=== PATIENT | female | born 1940 | race Caucasian/White ===

== ENCOUNTER 2016-12-18 13:52 | Inpatient (IN) | payer MEDICARE, BC ==
[2016-12-18] MEDS ORDERED: Albuterol-Ipratrop 3 mg / 0.5 (3 ml) UD IH STA (14:09)
[2016-12-18] MEDS ORDERED: Albuterol-Ipratrop 3 mg / 0.5 (3 ml) UD ONE (14:12)
--- NOTE | 2016-12-18 14:23 | ED PDOC ---
HPI: SOB/CHF/COPD Time Seen by Provider: 12/18/16 13:59 Chief Complaint (Nursing): Shortness Of Breath Chief Complaint (Provider): SOB, cough History Per: Patient History/Exam Limitations: no limitations Onset/Duration Of Symptoms: Days (1) Current Symptoms Are (Timing): Still Present Additional Complaint(s): The pt is a 76yo female, PMHx of HTN, presents to the ED for evaluation of shortness of breath associated with cough and productive white sputum for the past day. Pt additionally reports noticing some mild feet swelling; she denies any fever, chills or chest pain. Pt currently offers no additional medical complaints. Past Medical History Reviewed: Historical Data, Nursing Documentation, Vital Signs Vital Signs: Last Vital Signs Temp 98.4 F 12/18/16 13:56 Pulse 92 H 12/18/16 13:56 Resp 18 12/18/16 13:56 BP Pulse Ox 93 L 12/18/16 14:24 - Medical History PMH: HTN - Family History Family History: States: Unknown Family Hx - Allergies Allergies/Adverse Reactions: Allergies Allergy/AdvReac Type Severity Reaction Status Date / Time No Known Allergies Allergy Verified 12/18/16 13:56 Review of Systems ROS Statement: Except As Marked, All Systems Reviewed And Found Negative Constitutional: Negative for: Fever, Chills Cardiovascular: Negative for: Chest Pain Respiratory: Positive for: Cough, Shortness of Breath, Sputum (white) Musculoskeletal: Positive for: Other (feet swelling) Physical Exam - Reviewed Nursing Documentation Reviewed: Yes Vital Signs Reviewed: Yes - Physical Exam Appears: Positive for: Well, Non-toxic, No Acute Distress Head Exam: Positive for: ATRAUMATIC, NORMAL INSPECTION, NORMOCEPHALIC Skin: Positive for: Normal Color, Warm Eye Exam: Positive for: Normal appearance Neck: Positive for: Normal, Supple Cardiovascular/Chest: Positive for: Irregularly Irregular Respiratory: Positive for: Decreased Breath Sounds (mild decreased breath sounds ). Negative for: Wheezing, Respiratory Distress Gastrointestinal/Abdominal: Positive for: Normal Exam, Soft. Negative for: Tenderness Extremity: Positive for: Normal ROM, Swelling (no swelling or edema appreciated) - ECG O2 Sat by Pulse Oximetry: 93 Medical Decision Making Medical Decision Making: Time: 1405 Impression: shortness of breath and cough Plan: * EKG * Duoneb * CXR Scribe Attestation: Documented by Nubia Juany acting as a scribe for Yoni Arevalo MD. Provider Attestation: All medical record entries made by the Scribe were at my direction and personally dictated by me. I have reviewed the chart and agree that the record accurately reflects my personal performance of the history, physical exam, medical decision making, and the department course for this patient. I have also personally directed, reviewed, and agree with the discharge instructions and disposition. Disposition - Clinical Impression Clinical Impression: Atrial fibrillation with RVR - Patient ED Disposition Is Patient to be Admitted: Yes - Disposition Disposition Time: 14:57 Condition: FAIR - Pt Status Changed To: Hospital Disposition Of: Observation - POA Present On Arrival: None
[2016-12-18] MEDS ORDERED: Digoxin 500 mcg/2ml (0.5 mg/2ml) Inj ONE (15:06)
[2016-12-18] MEDS ORDERED: Digoxin 500 mcg/2ml (0.5 mg/2ml) Inj IVP STA (15:08)
[2016-12-18 15:11] LABS: BASO % 0.4 % (0.0-2.0); EOS % 0.1 % (0.0-4.0); HEMATOCRIT 37.3 % (34.0-47.0); LYMPH # 0.4 K/uL (1.0-4.3); LYMPH % 5.3 % (20.0-40.0); MEAN CELL VOLUME 85.8 fl (81.0-99.0); MEAN CORPUSCULAR HEMOGLOBIN 28.1 pg (27.0-31.0); MEAN CORPUSCULAR HGB CONC 32.8 g/dL (33.0-37.0); MEAN PLATELET VOLUME 8.4 fl (7.2-11.7); MONO # 0.5 K/uL (0.0-0.8); MONO % 6.8 % (0.0-10.0); NEUT # 6.8 K/uL (1.8-7.0); NEUT % 87.4 % (50.0-75.0); PLATELET COUNT 220 K/uL (130-400); RED CELL DISTRIBUTION WIDTH 14.7 % (11.5-14.5); WHITE BLOOD COUNT 7.8 K/uL (4.8-10.8)
[2016-12-18] MEDS ORDERED: Enoxaparin 60 mg Syringe SC STA (15:17)
--- NOTE | 2016-12-18 15:21 | RAD ---
HISTORY: Shortness of breath. COMPARISON: No prior. TECHNIQUE: Chest PA and lateral FINDINGS: LUNGS: Volume loss, scarring right lung. PLEURA: Pleural thickening right lung. Possible small pleural effusion. CARDIOVASCULAR: Cardiomegaly. No evidence of acute, significant cardiovascular disease. OSSEOUS STRUCTURES: No significant abnormalities. VISUALIZED UPPER ABDOMEN: Normal. OTHER FINDINGS: None. IMPRESSION: No active disease.
[2016-12-18 15:31] LABS: ALB/GLOB RATIO 1.3 (1.0-2.1); BILIRUBIN,TOTAL 1.1 mg/dl (0.2-1.3); CALCIUM 9.4 mg/dL (8.4-10.2); POTASSIUM 3.4 MMOL/L (3.6-5.0); TOTAL PROTEIN 6.7 G/DL (6.3-8.2)
[2016-12-18 15:42] LABS: TROPONIN I 0.051 ng/mL (0.00-0.120)
[2016-12-18] MEDS ORDERED: Potassium Chloride 20 mEq ER Tab PO ONE ×2 (15:46→15:49)
[2016-12-18 15:54] LABS: NEUTROPHIL 87 % (42-75); REACTIVE LYMPHOCYTES 2 % (0-0); TOTAL CELLS COUNTED 100
[2016-12-18 20:18] LABS: PARTIAL THROMBOPLASTIN TIME 36.6 Seconds (25.6-37.1)
[2016-12-18 20:29] LABS: THYROID STIMULATING HORMONE 1.61 mIU/ML (0.46-4.68)
[2016-12-19] MEDS ORDERED: Enoxaparin 40 mg Syringe SC SCH (09:00)
--- NOTE | 2016-12-19 11:18 | CARD ---
APPROVED REPORT EXAM: Two-dimensional and M-mode echocardiogram with Doppler and color Doppler. Other Information Quality : AverageRhythm : Atrial Fibrillation INDICATION Atrial Fibrillation Mitral Valve E/A ratio0.0 TDI E/Lateral E'0.0E/Medial E'0.0 LEFT VENTRICLE The left ventricle is normal in size. There is normal left ventricular wall thickness. The left ventricular function is normal. The left ventricular ejection fraction is - 50-55%. There is normal LV segmental wall motion. Transmitral Doppler flow pattern is Grade I-abnormal relaxation pattern. No left ventricle thrombus noted on this study. There is no ventricular septal defect visualized. There is no left ventricular aneurysm. There is no mass noted in the left ventricle. RIGHT VENTRICLE The RV size varies with respiration and is probably technically within normal limits in size but there is essentially near total collapse from the pericardial effusion. There is normal right ventricular wall thickness. Difficult to assess due to the large pericardial effusion. Near total collapse of the RV and RA from the large pericardial effusion. ATRIA The left atrium is mildly dilated. There is no thrombus suspected in the left atrium. Essentially near total collapse from the large pericardial effusion. The interatrial septum is intact with no evidence for an atrial septal defect. AORTIC VALVE The aortic valve is mildly to moderately calcified. No aortic regurgitation is present. There is no aortic valvular stenosis. MITRAL VALVE The mitral valve is normal in structure and function. There is no evidence of mitral valve prolapse. There is no mitral valve stenosis. Mitral regurgitation is trace. TRICUSPID VALVE The tricuspid valve is normal in structure and function. There is no tricuspid valve regurgitation noted. There is no tricuspid valve prolapse or vegetation. There is no tricuspid valve stenosis. PULMONIC VALVE The pulmonic valve is not well visualized. Doppler studies suboptimal. GREAT VESSELS The aortic root is normal in size. The IVC collapses <50% with inspiration. PERICARDIAL EFFUSION There is a large circumferential pericardial effusion with essentially total compression and collapse of the right ventricle and right atrium. There is no pleural effusion. <Conclusion> The study is of fair quality. The left ventricle is normal in size and wall thickness. The left ventricular function is normal with a LVEF of - 50-55%. The left atrium is mildly dilated. The aortic valve is mildly to moderately calcified but not stenotic. The mitral and tricuspid valves are normal. There is a large circumferential pericardial effusion with severe compression and collapse of the right ventricle and right atrium. Impression: This is a tamponade picture. Please correlate clinically. Note: Dr. Minna Staley was spoken to about this echocardiogram.
[2016-12-19] MEDS ORDERED: Sodium Chloride 0.9% 1,000 ML IV SCH (11:45)
--- NOTE | 2016-12-19 12:26 | CP.PCM.CON ---
<Dilip Pérez - Last Filed: 12/19/16 12:26> History of Present Illness - History of Present Illness History of Present Illness: 76F w/ PMHx of HTN presented to the ED on 12/18 with complaints of shortness of breath. Patient was found to be in Afib w/ RVR. Currently patient is rate controlled. Patient is a poor historian. Complains of recent b/l leg edema. States she can only walk short distances before feeling SOB. Patient admits to a long history of smoking. At time of examination patient denied, chest pain, reported moderate SOB improved since admission, states she has mild abdominal pain. Denies fever/chills. PMHx: HTN Allergies: NKDA PSurgHx:hysterectomy Social Hx: 1-2 packs daily, currently still smokes Review of Systems - Review of Systems Review of Systems: 12pt ROS unremarkable, except as stated in HPI Past Patient History - Past Social History Smoking Status: Current Some Days Smoker - CARDIAC Hx Cardiac Disorders: Yes Hx Hypertension: Yes - PULMONARY Hx Respiratory Disorders: No - NEUROLOGICAL Hx Neurological Disorder: No - HEENT Hx HEENT Problems: No - RENAL Hx Chronic Kidney Disease: No - ENDOCRINE/METABOLIC Hx Endocrine Disorders: No - HEMATOLOGICAL/ONCOLOGICAL Hx Blood Disorders: No Hx Blood Transfusions: No - INTEGUMENTARY Hx Dermatological Problems: No - MUSCULOSKELETAL/RHEUMATOLOGICAL Hx Musculoskeletal Disorders: No Hx Falls: No - GASTROINTESTINAL Hx Gastrointestinal Disorders: No - GENITOURINARY/GYNECOLOGICAL Hx Genitourinary Disorders: No - PSYCHIATRIC Hx Psychophysiologic Disorder: No Hx Substance Use: No - SURGICAL HISTORY Hx Surgeries: Yes Hx Cardiac Catheterization: Yes - ANESTHESIA Hx Anesthesia: Yes Hx Anesthesia Reactions: No Meds Allergies/Adverse Reactions: Allergies Allergy/AdvReac Type Severity Reaction Status Date / Time No Known Allergies Allergy Verified 12/18/16 13:56 - Medications Medications: Current Medications Atorvastatin Calcium (Lipitor) 80 mg PO HS WING Last Admin: 12/18/16 21:25 Dose: 80 mg Sodium Chloride (Sodium Chloride 0.9%) 1,000 mls @ 60 mls/hr IV .[id number] WING Physical Exam - Constitutional Appears: Non-toxic - Head Exam Head Exam: NORMOCEPHALIC - Eye Exam Eye Exam: Normal appearance - ENT Exam ENT Exam: Mucous Membranes Moist - Respiratory Exam Respiratory Exam: Decreased Breath Sounds. absent: Accessory Muscle Use - Cardiovascular Exam Cardiovascular Exam: +S1, +S2 - GI/Abdominal Exam GI & Abdominal Exam: Soft Additional comments: rash noted along bra line - Extremities Exam Extremities exam: Positive for: pedal edema - Neurological Exam Neurological exam: Alert - Psychiatric Exam Psychiatric exam: Normal Mood - Skin Skin Exam: Dry, Intact Results - Vital Signs Recent Vital Signs: Last Vital Signs Temp 98.7 F 12/19/16 09:00 Pulse 76 12/19/16 09:00 Resp 20 12/19/16 09:00 BP 113/68 12/19/16 09:00 Pulse Ox 94 L 12/19/16 09:00 - Labs Result Diagrams: 12/18/16 15:00 12/18/16 15:00 Labs: Laboratory Results - last 24 hr 12/18/16 12/18/16 12/19/16 19:42 20:10 09:30 PT 13.9 H INR 1.2 APTT 36.6 Troponin I 0.0700 NT-Pro-B Natriuret Pep 3420 H TSH 3rd Generation 1.61 Assessment & Plan - Assessment and Plan (Free Text) Assessment: 76F w/ large circumferential pericardial effusion -NPO -IVF -EKG -Monitor vitals -CT Chest & Abd w/ IV contrast -D/w Dr. Solo -[facility] recs per Dr. Solo <Kevin Solo - Last Filed: 12/19/16 16:03> Meds - Medications Medications: Current Medications Atorvastatin Calcium (Lipitor) 80 mg PO [facility] Last Admin: 12/18/16 21:25 Dose: 80 mg Sodium Chloride (Sodium Chloride 0.9%) 1,000 mls @ 60 mls/hr IV .[id number] [facility] Results - Vital Signs Recent Vital Signs: Last Vital Signs Temp 98.0 F 12/19/16 12:38 Pulse 67 12/19/16 12:38 Resp 18 12/19/16 12:38 BP 124/71 12/19/16 12:38 Pulse Ox 94 L 12/19/16 12:38 - Labs Result Diagrams: 12/18/16 15:00 12/18/16 15:00 Labs: Laboratory Results - last 24 hr 12/18/16 12/18/16 12/19/16 19:42 20:10 09:30 PT 13.9 H INR 1.2 APTT 36.6 Troponin I 0.0700 NT-Pro-B Natriuret Pep 3420 H TSH 3rd Generation 1.61 Blood Type Blood Type Confirm Antibody Screen Crossmatch BBK History Checked 12/19/16 12/19/16 13:04 13:15 PT INR APTT Troponin I NT-Pro-B Natriuret Pep TSH 3rd Generation Blood Type A NEGATIVE Blood Type Confirm A NEGATIVE Antibody Screen Negative Crossmatch See Detail BBK History Checked No verified bt Addendum Addendum: 12/19/16 15:53 Pt s/e. Progress notes and imaging studies reviewed. ECHO reading consistent with cardiac tamponade due to a large circumferential pericardial effusion. CT of chest: Large pericardial efflusion, tlhick pericardium, and small left upper lobe nodule. Right pleural effusion, and comppressive atelectasis. Questionable left ventricular mass which will require a further w/u after surgery. I have discussed pericardial window with the pt., compliecations( infection, bleeding, air leak) and possibility of and she accepted [facility] [place].
[2016-12-19] MEDS ORDERED: Sodium Chloride 0.9% 50 ML IV ONE (13:48)
--- NOTE | 2016-12-19 13:52 | CARD ---
APPROVED REPORT EKG Measurement Heart [id number] [id number] <Conclusion> Sinus rhythm with marked sinus arrhythmia with premature atrial complexes Low voltage QRS ST & T wave abnormality, consider inferior ischemia ST & T wave abnormality, consider anterolateral ischemia Abnormal ECG
--- NOTE | 2016-12-19 14:02 | CARD ---
APPROVED REPORT EKG Measurement Heart [id number] <Conclusion> Atrial fibrillation with rapid ventricular rate Low voltage QRS ST & T wave abnormality, consider inferolateral ischemia Abnormal ECG
[2016-12-19] MEDS ORDERED: Etomidate 20 mg/10ml Inj IV ONE (14:42)
[2016-12-19] MEDS ORDERED: Midazolam 2 MG/2 ML VIAL ONE (14:43)
[2016-12-19] MEDS ORDERED: Succinylcholine 200 mg/10 ml Inj IV ONE (14:45)
[2016-12-19] MEDS ORDERED: Ketamine 50 mg/ml Inj (10 ml) ONE (14:47)
[2016-12-19] MEDS ORDERED: Bupivacaine 0.5% Inj(30mL) ONE (14:53)
[2016-12-19] MEDS ORDERED: Lidocaine 1% Inj (20ml) ONE (14:53)
[2016-12-19] MEDS ORDERED: Liquid Adhesive TOP ONE (14:53)
[2016-12-19] MEDS ORDERED: Gentamicin 80 mg/2mL Inj. ONE (14:53)
--- NOTE | 2016-12-19 15:24 | CP.CCUPN ---
CCU Subjective - Physician Review Events Since Last Encounter (Free Text): 12/19/16 15:28 Patient seen and examined, 76 Y/O F with PMHx of HTN who presents to the ED with complaint of worsening shortness of breath and productive cough with white sputum. In the ER Patient was found to be in A-Fib with RVR, Initially admitted to telemetry, Echo was done showing Pericardial effusion with cardiac tamponade. Thoracic surgery consulted Pt kept NPO for now for OR and she was transferred to the ICU for further managements. Currently she AAO x3, Comfortable, but still C/O dyspnea, No chest pain, No fever/chills CCU Objective - Vital Signs / Intake & Output Vital Signs (Last 4 hours): Vital Signs Temp Pulse Resp BP Pulse Ox 12/19/16 12:38 98.0 F 67 18 124/71 94 L - Physical Exam Head: Positive for: Atraumatic, Normocephalic. Negative for: Tenderness, Contusion, Swelling, Ecchymosis Pupils: Positive for: PERRL. Negative for: Sluggish, Non-Reactive, Pinpoint Extroacular Muscles: Positive for: EOMI. Negative for: Gaze Palsy, Entrapment Conjunctiva: Positive for: Normal. Negative for: Injected, Icteric Ears: Positive for: Normal Mouth: Positive for: Moist Mucous Membranes. Negative for: Dry, Drooling Pharnyx: Positive for: Normal. Negative for: ERYTHEMA Nose (Internal): Positive for: Normal Inspection, No Active Bleeding Neck: Positive for: Normal Range of Motion, Trachea Midline. Negative for: Meningeal Signs, MIDLINE TENDERNESS, Paraspinal Tenderness, JVD, Lymphadenopathy , Bruit, Other Respiratory/Chest: Positive for: Good Air Exchange, Tachypneic. Negative for: Respiratory Distress, Accessory Muscle Use, Wheezes, Decreased Breath Sounds, Rales, Rhonchi Cardiovascular: Positive for: Irregular Rhythm, Peripheal Pulses Present. Negative for: Murmurs, Tachycardic, Bradycardic Abdomen: Positive for: Normal Bowel Sounds. Negative for: Tenderness, Distention, Peritoneal Signs Neurological: Positive for: GCS=15, CN II-XII Intact, Speech Normal, Motor Func Grossly Intact, Normal Sensory Function Psychiatric: Positive for: Alert, Oriented x 3, Normal Insight, Normal Concentration, Normal Affect, Normal Mood - Medications Active Medications: Active Medications Generic Name Dose Route Start Last Admin Trade Name Freq PRN Reason Stop Dose Admin Atorvastatin Calcium 80 mg 12/18/16 22:00 12/18/16 21:25 Lipitor PO 80 mg HS WING Administration Sodium Chloride 1,000 mls @ 60 mls/hr 12/19/16 11:45 Sodium Chloride 0.9% IV .[id number] WING - Patient Studies Lab Studies: Lab Studies 12/19/16 12/19/16 12/19/16 Range/Units 13:15 13:04 09:30 PT (9.8-13.1) Seconds INR (0.9-1.2) APTT (25.6-37.1) Seconds Troponin I 0.0700 (0.00-0.120) ng/mL NT-Pro-B Natriuret Pep (0-900) pg/ml TSH 3rd Generation (0.46-4.68) mIU/ML Blood Type A NEGATIVE Blood Type Confirm A NEGATIVE Antibody Screen Negative Crossmatch See Detail BBK History Checked No verified bt 12/18/16 12/18/16 Range/Units 20:10 19:42 PT 13.9 H (9.8-13.1) Seconds INR 1.2 (0.9-1.2) APTT 36.6 (25.6-37.1) Seconds Troponin I (0.00-0.120) ng/mL NT-Pro-B Natriuret Pep 3420 H (0-900) pg/ml TSH 3rd Generation 1.61 (0.46-4.68) mIU/ML Blood Type Blood Type Confirm Antibody Screen Crossmatch BBK History Checked Laboratory Results - last 24 hr 12/18/16 12/18/16 12/19/16 19:42 20:10 09:30 PT 13.9 H INR 1.2 APTT 36.6 Troponin I 0.0700 NT-Pro-B Natriuret Pep 3420 H TSH 3rd Generation 1.61 Blood Type Blood Type Confirm Antibody Screen Crossmatch BBK History Checked 12/19/16 12/19/16 13:04 13:15 PT INR APTT Troponin I NT-Pro-B Natriuret Pep TSH 3rd Generation Blood Type A NEGATIVE Blood Type Confirm A NEGATIVE Antibody Screen Negative Crossmatch See Detail BBK History Checked No verified bt EKG/Cardiology Studies: Cardiology / EKG Studies 12/18/16 15:41 ELECTROCARDIOGRAM Stat Comment: Mode Of Transportation: Reason For Exam: post cardizem Review of Systems - Constitutional Constitutional: absent: Fever, Chills, Sweats, Weakness, Malaise - Cardiovascular Cardiovascular: Dyspnea, Dyspnea on Exertion, Irregular Heart Rhythm. absent: Diaphoresis, Pain Radiating to Arm/Neck/Jaw, Leg Edema, Leg Ulcers, Lightheadedness - Respiratory Respiratory: Cough, Dyspnea. absent: Hemoptysis, Dyspnea on Exertion, Wheezing , Snoring Critical Care Progress Note - Nutrition Nutrition: Nutrition Category Date Time Status NPO Diet [DIET] Diets 12/19/16 Lunch Active Assessment/Plan (1) Pericardial effusion with cardiac tamponade Current Visit: Yes Status: Acute (2) Atrial fibrillation with RVR Current Visit: Yes Status: Acute - Assessment and Plan (Free Text) Assessment: The Patient was seen and examined at the bedside, Medical records reviewed, all clinical/lab/hemodynamic/radiographic data were reviewed and management issues were discussed and formulated, Patient with large pericardial effusion, impending cardiac tamponade, needs evacuation of pericardial effusion, she currently hemodynamically stable, No CP , less SOB, Afebrile Patient medically optimized for procedure with no obvious contraindications
--- NOTE | 2016-12-19 15:33 | CT ---
PROCEDURE: CT Chest, Abdomen and Pelvis with intravenous contrast HISTORY: large pericardical effusion, eval for malignancy COMPARISON: None. TECHNIQUE: IV dose administered: 50 cc Visipaque. Radiation dose: Total exam DLP = 1339.08 mGy-cm. This CT exam was performed using one or more of the following dose reduction techniques: Automated exposure control, adjustment of the mA and/or kV according to patient size, and/or use of iterative reconstruction technique. FINDINGS: CT CHEST WITH CONTRAST: LUNGS: There is 12.5 millimeter noncalcified nodule at the left lung upper lobe adjacent to the fissure. Mild emphysematous changes seen in the upper lobes. Partial atelectasis of the right middle and lower lobe due to pleural effusion. MEDIASTINUM: Large pericardial effusion is noted. There is suspicious for mass lesion at the left ventricle lateral wall measures approximately 4.3 centimeter. The possibility of primary or secondary malignant neoplasm should be considered. Foci of mild pericardial thickening and enhancement are also noted. The thoracic aorta is ectatic and tortuous. The main pulmonary artery is normal in caliber. LYMPH NODES: Mild mediastinal lymphadenopathy is seen. PLEURA: Moderate to large right pleural effusion.Small left pleural effusion is noted. BONES: Unremarkable. OTHER FINDINGS: None. CT ABDOMEN AND PELVIS: LIVER: Heterogeneous enhancement of the liver is noted without evidence of discrete mass lesion. The portal vein is patent. GALLBLADDER AND BILE DUCTS: Gallstones are seen without evidence of cholecystitis. PANCREAS: Unremarkable. No gross lesion or ductal dilatation. SPLEEN: Unremarkable. ADRENALS: Unremarkable. No mass. KIDNEYS AND URETERS: The kidneys enhance symmetrically. There are cystic lesions seen in both kidneys. The largest cyst seen exophytic from the left kidney measures 7.1 centimeter. No evidence of hydronephrosis or hydroureter. VASCULATURE: Diffuse atherosclerotic calcification is seen. Focal aneurysmal changes seen at the proximal abdominal aorta at the level of the kidneys measures 3 centimeter. BOWEL: Colonic diverticulosis are seen without evidence of diverticulitis. No evidence of bowel obstruction. APPENDIX: Normal appendix. PERITONEUM: Small amount of free fluid seen in the lower abdomen and pelvis. LYMPH NODES: There is 2.3 centimeter low-attenuation nodule adjacent to the greater curvature of the stomach and in the left subdiaphragmatic region image 16 series 6 may represent enlarged lymph node or exophytic tumor from the stomach. No evidence of retroperitoneal lymphadenopathy. BLADDER: Mild urinary bladder wall thickening. Low position of the bladder is noted suspicious for cystocele. REPRODUCTIVE: The uterus and adnexa are not visualized in this exam. BONES: No acute fracture. OTHER FINDINGS: There is 8.8 x 6.3 centimeter subcutaneous lipoma at the left posterior lower chest wall. IMPRESSION: Large pericardial effusion. Suspicious for mass lesion at or adjacent to the lateral wall of the left cardiac ventricle measures approximately 4.3 centimeter. The possibility of secondary or primary malignant neoplasm should be considered. 1.3 centimeter noncalcified nodule at the right upper lobe Moderate to large right and small left pleural effusions. Heterogeneous enhancement of the liver without definite CT evidence of discrete mass. 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 Colonic diverticulosis without evidence of diverticulitis. Small amount of free fluid in the lower abdomen and pelvis of uncertain etiology. 2.3 centimeter low-attenuation nodule at or adjacent to the greater curvature of the stomach may represent tumor or enlarged lymph node.
[2016-12-19] MEDS ORDERED: ePHEDrine 50 mg/ml Inj ONE (15:35)
[2016-12-19] MEDS ORDERED: Lactated Ringer's 1,000 ML IV ONE ×2 (15:48→18:00)
--- NOTE | 2016-12-19 16:03 | CON ---
DATE: 12/19/2016 REASON FOR CONSULTATION: New onset atrial fibrillation and large pericardial effusion. HISTORY OF PRESENT ILLNESS: The patient is a 76-year-old female who has a history of coronary artery disease status post coronary stenting many years ago at [facility]. The patient has primary physician in [place]. She presented because of shortness of breath as well as significant leg swelling. The patient denies any history of TB or TB exposure in the past. The patient was initially found to have atrial fibrillation. The patient was started on intravenous Cardizem infusion that was later discontinued. The patient denies any retrosternal chest pain. SOCIAL HISTORY: The patient is a smoker who quit recently. HOME MEDICATIONS: Norvasc 5 mg once a day, Avalide 300/12.5 mg daily, Lipitor 80 mg once a day, aspirin 325 mg once a day. REVIEW OF SYSTEMS: No nausea or vomiting. No fever or chills. No dizziness or syncope. PHYSICAL EXAMINATION: GENERAL: The patient is an elderly female who does not appear to be in acute distress. VITAL SIGNS: Blood pressure 115/68, heart rate 76, temperature 98.7, respiration 20. HEENT: Normocephalic. NECK: No JVD. CHEST: Clear. HEART: S1, S2 regular. ABDOMEN: Soft. EXTREMITIES: 2+ left leg edema. LABORATORY DATA: CBC: WBC 7.8, hemoglobin 12.2, hematocrit 37.3, platelet count 220,000. SMA-7: Sodium 139, potassium 3.4, chloride 102, CO2 of 24, glucose 117, BUN 35, creatinine 1.1. Two sets of troponins are negative. ProBNP 3420. TSH level is 1.61. INR is 1.2, PTT 36.6. The second EKG revealed sinus rhythm with atrial bigeminy, consider inferolateral ischemic ST- T wave changes. The initial EKG on admission revealed atrial fibrillation with rapid ventricular response at a rate of 142. I reviewed the transthoracic echocardiographic study and appreciate report that was discussed with . This was consistent with a large circumferential pericardial effusion with severe compression collapse of the right ventricle and right atrium. ASSESSMENT: 1. Pericardial effusion with pericardial tamponade. 2. History of coronary artery disease and coronary stenting in the past. 3. Hypokalemia. 4. Rule out deep venous thrombosis of the left lower extremity. RECOMMENDATIONS: Case was discussed at length with the primary physician, Dr. Hopson. The patient had received potassium replacement yesterday of 20 mEq. I will start normal saline infusion and transfer the patient to ICU. Cardiothoracic surgical consultation was requested from Dr. Solo who will evaluate the patient for possible pericardial window. Subcutaneous Lovenox was discontinued for now. In the meantime, I will request lupus markers and rheumatoid panel. Further diagnostic information will be obtained from the pericardial fluid analysis _ as well as cultures including TB culture. Chest CT scan to r/o malignancy Venous Doppler of lE to R/O DVT Discussed with cardiovascular surgical tech Thor Still MD cc: [id number] TT: 12/19/2016 16:02:47 Confirmation # [id number] Dictation # [id number] ad MTDD
[2016-12-19] MEDS ORDERED: Rocuronium 10 mg/ml (5 ml) ONE (16:16)
--- NOTE | 2016-12-19 16:32 | US ---
PROCEDURE: Bilateral lower extremity venous duplex Doppler. HISTORY: r/o DVT COMPARISON: None available. TECHNIQUE: Bilateral common femoral, superficial femoral, popliteal and posterior tibial veins were evaluated. Flow was assessed with color Doppler, compressibility, assessment of phasic flow and augmentation response. FINDINGS: COMMON FEMORAL VEIN: Right CFV: Unremarkable. Left CFV: Unremarkable. SUPERFICIAL FEMORAL VEIN: Right SFV: Unremarkable. Left SFV: Unremarkable. POPLITEAL VEIN: Right Popliteal: Unremarkable. Left Popliteal: Unremarkable. POSTERIOR TIBIAL VEIN: Right PTV: Unremarkable. Left PTV: Unremarkable. OTHER FINDINGS: Bilateral calf edema. IMPRESSION: No evidence of deep venous thrombosis.
[2016-12-19] MEDS ORDERED: Neostigmine Methylsulfate 3mg/3ml Syringe IV ONE (17:37)
[2016-12-19] MEDS ORDERED: Sodium Chloride 0.9% 1,000 ML IV ONE ×2 (18:10→19:41)
[2016-12-19] MEDS ORDERED: HYDROmorphone 0.5 mg/0.5 ml ISec ONE (18:20)
[2016-12-19] MEDS: HYDROmorphone 0.5 mg/0.5 ml ISec IVP PRN ×4 (18:20→21:47)
--- NOTE | 2016-12-19 18:25 | PCM.SURG1 ---
Surgeon's Initial Post Op Note - Surgeon's Notes Surgeon: Dr. Solo Change Control Coordinator: Dr. Cheek PGY-2, Dr. Pérez PGY-1 Type of Anesthesia: General Endo Pre-Operative Diagnosis: pericardial effusion. cardiac tamponade Operative Findings: see operative report Post-Operative Diagnosis: see operative report Operation Performed: pericardial window. evacuation of pericardial effusion Specimen/Specimens Removed: pericardial fat pad. pericardium. pericardial fluid Estimated Blood Loss: EBL {In ML}: 50 Blood Products Given: N/A Drains Used: Chest Tubes (x2 anterior) Post-Op Condition: Good Date of Surgery/Procedure: 12/19/16 Time of Surgery/Procedure: 16:15
[2016-12-19] MEDS ORDERED: HYDROmorphone 0.5 mg/0.5 ml ISec IM PRN (18:29)
[2016-12-19] MEDS ORDERED: Lactated Ringer's 1,000 ML IV PRN (18:29)
[2016-12-19] MEDS ORDERED: Sodium Chloride 0.9% 1,000 ML IV PRN (18:37)
--- NOTE | 2016-12-20 00:36 | HP ---
HISTORY OF PRESENT ILLNESS: This is a 76-year-old female with history of multiple medical problems, presented to the Emergency Room with shortness of breath that has been progressive over 2 d ays duration. The patient was evaluated in the Emergency Room where she was found to be in rapid atr ial fibrillation. The patient was started on Cardizem and admitted for further management. REVIEW OF SYSTEMS: Other review of systems is negative. ALLERGIES: No known allergy. HOME MEDICATIONS: Aspirin 325 mg daily, amlodipine 5 mg daily, Avalide 300/12.5 mg daily, Lipitor 80 mg daily. PAST MEDICAL HISTORY: Hypertension and hypercholesterolemia. SOCIAL HISTORY: There is history of smoking. No ETOH or substance abuse. FAMILY HISTORY: Noncontributory. PHYSICAL EXAMINATION: GENERAL: The patient was found in mild respiratory distress. VITAL SIGNS: Her blood pressure was 113/68, temperature 98.7, respiratory rate 20, and pulse is 76. HEENT: Pupils equal, reactive to light. Normal-appearing mucosa of the conjunctivae, oropharyngeal and nasal membrane mucosa. NECK: Supple, no JVD, no carotid bruit, no lymph node, no thyromegaly. CHEST AND LUNGS: Bilateral symmetrical expansion, good air exchange, no rales, no rhonchi. CARDIOVASCULAR: PMI not localized. S1, S2. No additional sounds. ABDOMEN: Normoactive bowel sounds, no tenderness, no organomegaly, no masses. EXTREMITIES: No cyanosis, no clubbing, no edema. CENTRAL NERVOUS SYSTEM: Alert, awake, oriented x 2. No neurological deficits could be appreciated. Echocardiogram done and showed pericardial effusion with a tamponade picture. ASSESSMENT: 1. Cardiac tamponade. 2. Atrial fibrillation with rapid ventricular rate. 3. History of hypertension. PLAN: Discussed the patient with Dr. Still. The patient was transferred to intensive care unit and she had an emergency surgical consult for pericardial window. Anticoagulants was started at this time and the patient will be worked up and the cause of the pericardial effusion is not known at thi s time. We will monitor the patient from the ICU. Herlinda Hopson MD cc: [id number] TT: 12/20/2016 00:36:00 teetee
[2016-12-20] MEDS: ceFAZolin 1 GM in Sodium Chloride 0.9% 100 ML IVPB SCH ×3 (00:49→16:23)
[2016-12-20] MEDS: HYDROmorphone 0.5 mg/0.5 ml ISec IVP PRN ×3 (04:54→17:28)
[2016-12-20 04:55] LABS: HEMATOCRIT 36.1 % (34.0-47.0); MEAN CORPUSCULAR HEMOGLOBIN 27.4 pg (27.0-31.0); MEAN CORPUSCULAR HGB CONC 31.9 g/dL (33.0-37.0); RED CELL DISTRIBUTION WIDTH 14.4 % (11.5-14.5); WHITE BLOOD COUNT 11.1 K/uL (4.8-10.8)
[2016-12-20 05:09] LABS: ALB/GLOB RATIO 1.1 (1.0-2.1); ALKALINE PHOSPHATASE 69 U/L (38-126); ALT/SGPT 42 U/L (9-52); AST/SGOT 23 U/L (14-36); BILIRUBIN,TOTAL 1.1 mg/dl (0.2-1.3); BLOOD UREA NITROGEN 24 mg/dl (7-17); CALCIUM 8.2 mg/dL (8.4-10.2); CARBON DIOXIDE 24 mmol/L (22-30); CHLORIDE 107 mmol/L (98-107); GFR AFRICAN-AMERICAN > 60; GLUCOSE,RANDOM 85 mg/dL (65-105); POTASSIUM 3.1 MMOL/L (3.6-5.0); SODIUM 139 mmol/l (132-148); TOTAL PROTEIN 5.5 G/DL (6.3-8.2)
[2016-12-20] MEDS ORDERED: Potassium Chloride 20 mEq ER Tab PO ONE ×2 (06:57→08:00)
[2016-12-20] MEDS ORDERED: Potassium Chloride 20 mEq ER Tab PO STA (06:58)
--- NOTE | 2016-12-20 07:56 | CP.PCM.PN ---
Subjective - Date & Time of Evaluation Date of Evaluation: 12/20/16 Time of Evaluation: 07:53 - Subjective Subjective: Thoracic surgery - Dr. Solo Pt S&E in ICU s/p pericardial window. She is OOB in the chair and doing well post-operatively. Pt states her pain is well controlled. She tolerated small amount of clear liquis yesterday. Maddox catheter in place with 900cc clear yellow urine overnight. Pericardial chest tubes in place with 600cc total drainage since surgery. Pt denies any N/V, F/C, SOB/Cp. Objective - Vital Signs/Intake and Output Vital Signs (last 24 hours): Temp Pulse Resp BP Pulse Ox 98.5 F 126 H 17 144/70 94 L 12/20/16 04:00 12/20/16 06:00 12/20/16 06:00 12/20/16 06:00 12/20/16 06:00 Intake and Output: 12/20/16 12/20/16 06:59 18:59 Output Total 1580 Balance -1580 - Medications Medications: Current Medications Atorvastatin Calcium (Lipitor) 80 mg PO HS [facility] Last Admin: 12/19/16 22:20 Dose: Not Given Hydromorphone HCl (Dilaudid) 0.5 mg IVP Q3H PRN PRN Reason: Pain, moderate (4-7) Last Admin: 12/20/16 04:54 Dose: 0.5 mg Hydromorphone HCl (Dilaudid) 0.5 mg IVP Q15M PRN PRN Reason: Pain, moderate (4-7) Last Admin: 12/19/16 19:25 Dose: 0.5 mg Sodium Chloride (Sodium Chloride 0.9%) 1,000 mls @ 60 mls/hr IV .[id number] [facility] Cefazolin Sodium 1 gm/ Sodium (Chloride) 100 mls @ 100 mls/hr IVPB Q8 [facility] Stop: 12/21/16 09:59 Last Admin: 12/20/16 00:49 Dose: 100 mls/hr Lactated Ringer's (Lactated Ringer's) 1,000 mls @ 66 mls/hr IV .[id number] PRN PRN Reason: Urine Output Below 30 mL/hr Sodium Chloride (Sodium Chloride 0.9%) 1,000 mls @ 100 mls/hr IV .Q10H PRN PRN Reason: Hypotension Ondansetron HCl (Zofran Inj) 4 mg IVP Q6 PRN PRN Reason: Nausea/Vomiting Last Admin: 12/20/16 05:00 Dose: 4 mg Potassium Chloride (K-Dur 20 Meq Er Tab) 40 meq PO STAT STA Stop: 12/20/16 06:59 Potassium Chloride (K-Dur 20 Meq Er Tab) 40 meq PO ONCE ONE Stop: 12/20/16 06:58 Potassium Chloride (K-Dur 20 Meq Er Tab) 20 meq PO ONCE ONE Stop: 12/20/16 08:01 - Labs Labs: 12/20/16 04:30 12/20/16 04:30 PT 13.9 Seconds (9.8-13.1) H 12/18/16 20:10 INR 1.2 (0.9-1.2) 12/18/16 20:10 APTT 36.6 Seconds (25.6-37.1) 12/18/16 20:10 - Constitutional Appears: No Acute Distress - Head Exam Head Exam: ATRAUMATIC, NORMAL INSPECTION, NORMOCEPHALIC - Respiratory Exam Respiratory Exam: NORMAL BREATHING PATTERN. absent: Respiratory Distress - Cardiovascular Exam Cardiovascular Exam: Tachycardia, Irregular Rhythm Additional comments: pericardial chest tubes in place, 600cc sanguinous driange since surgery - Neurological Exam Neurological Exam: Alert, Oriented x3 - Psychiatric Exam Psychiatric exam: Normal Affect, Normal Mood - Skin Skin Exam: Dry, Intact Assessment and Plan - Assessment and Plan (Free Text) Assessment: 76yo F s/p Pericardial window for Cardiac tamponade, POD #1 -Continue pericardial chest tubes to wall suction -D/C maddox catheter -Advance diet as tolerated to heart healthy -Pain control prn -F/U CXR -Encourage OOB to chair, Incentive Spirometer DW Dr Germania Cheek PGY2
[2016-12-20] MEDS ORDERED: Digoxin 500 mcg/2ml (0.5 mg/2ml) Inj IVP ONE (10:17)
[2016-12-20] MEDS ORDERED: Sodium Chloride 0.9% 1,000 ML IV PRN (10:19)
[2016-12-20 10:20] LABS: BODY FLUID TYPE PERICARDIAL
--- NOTE | 2016-12-20 10:38 | CP.CCUPN ---
CCU Subjective - Physician Review Subjective (Free Text): Awake and alert, sitting OOB to chair, no distress, Drains intact: R with 130 ml output, L with 175 ml output since yesterday. Tolerated liquid diet, still tachycardic, BP borderline a times, HR AFib in 120's. No new pain or discomfort. Nasal cannula 2 LPM with 98% SPO2. CCU Objective - Vital Signs / Intake & Output Vital Signs (Last 4 hours): Vital Signs Temp Pulse Resp BP Pulse Ox 12/20/16 08:00 99.6 F 119 H 24 111/62 95 Intake and Output (Last 8hrs): Intake & Output 12/19/16 12/20/16 12/20/16 22:59 06:59 14:59 Intake Total 1950 300 Output Total 550 1205 Balance 1400 -1205 300 Intake: IV 1950 200 Oral 100 Output: Chest Tube Drainage 125 Drainage 305 Left Medial Chest 175 Right Medial Chest 130 Urine 425 900 Urethral (Petty) 900 - Physical Exam Head: Positive for: Atraumatic, Normocephalic. Negative for: Tenderness, Contusion, Swelling, Ecchymosis Pupils: Positive for: PERRL. Negative for: Sluggish, Non-Reactive, Pinpoint Extroacular Muscles: Positive for: EOMI. Negative for: Gaze Palsy, Entrapment Conjunctiva: Positive for: Normal. Negative for: Injected, Icteric Ears: Positive for: Normal Mouth: Positive for: Moist Mucous Membranes. Negative for: Dry, Drooling Pharnyx: Positive for: Normal. Negative for: ERYTHEMA Nose (Internal): Positive for: Normal Inspection, No Active Bleeding Neck: Positive for: Normal Range of Motion, Trachea Midline. Negative for: Meningeal Signs, MIDLINE TENDERNESS, Paraspinal Tenderness, JVD, Lymphadenopathy , Bruit, Other Respiratory/Chest: Positive for: Good Air Exchange, Tachypneic. Negative for: Respiratory Distress, Accessory Muscle Use, Wheezes, Decreased Breath Sounds, Rales, Rhonchi Cardiovascular: Positive for: Irregular Rhythm, Peripheal Pulses Present, Tachycardic, Bradycardic. Negative for: Murmurs Abdomen: Positive for: Normal Bowel Sounds. Negative for: Tenderness, Distention, Peritoneal Signs Neurological: Positive for: GCS=15, CN II-XII Intact, Speech Normal, Motor Func Grossly Intact, Normal Sensory Function Psychiatric: Positive for: Alert, Oriented x 3, Normal Insight, Normal Concentration, Normal Affect, Normal Mood - Medications Active Medications: Active Medications Generic Name Dose Route Start Last Admin Trade Name Dangeloq PRN Reason Stop Dose Admin Atorvastatin Calcium 80 mg 12/18/16 22:00 12/19/16 22:20 Lipitor PO Not Given HS [facility] Digoxin 0.5 mg 12/20/16 10:17 Lanoxin IVP 12/20/16 10:18 ONCE ONE Hydromorphone HCl 0.5 mg 12/19/16 18:34 12/20/16 04:54 Dilaudid IVP 0.5 mg Q3H PRN Administration Pain, moderate (4-7) Hydromorphone HCl 0.5 mg 12/19/16 18:37 12/19/16 19:25 Dilaudid IVP 0.5 mg Q15M PRN Administration Pain, moderate (4-7) Cefazolin Sodium 1 gm/ Sodium 100 mls @ 100 mls/hr 12/20/16 01:00 12/20/16 08 :17 Chloride IVPB 12/21/16 09:59 100 mls/hr Q8 [facility] Administration Lactated Ringer's 1,000 mls @ 66 mls/hr 12/19/16 18:29 Lactated Ringer's IV .[id number] PRN Urine Output Below 30 mL/hr Sodium Chloride 1,000 mls @ 175 mls/hr 12/20/16 10:19 Sodium Chloride 0.9% IV .[id number] PRN Hypotension Ondansetron HCl 4 mg 12/19/16 21:03 12/20/16 05:00 Zofran Inj IVP 4 mg Q6 PRN Administration Nausea/Vomiting Potassium Chloride 40 meq 12/20/16 06:57 K-Dur 20 Meq Er Tab PO 12/20/16 06:58 ONCE ONE Potassium Chloride 20 meq 12/20/16 08:00 K-Dur 20 Meq Er Tab PO 12/20/16 08:01 ONCE ONE - Patient Studies Lab Studies: Lab Studies 12/20/16 12/20/16 12/19/16 Range/Units 04:30 04:30 Unknown WBC 11.1 H (4.8-10.8) K/uL RBC 4.20 (3.80-5.20) Mil/uL Hgb 11.5 L (12.0-16.0) g/dL Hct 36.1 (34.0-47.0) % MCV 86.0 (81.0-99.0) fl MCH 27.4 (27.0-31.0) pg MCHC 31.9 L (33.0-37.0) g/dL RDW 14.4 (11.5-14.5) % Plt Count 191 (130-400) K/uL Sodium 139 (132-148) mmol/l Potassium 3.1 L (3.6-5.0) MMOL/L Chloride 107 (98-107) mmol/L Carbon Dioxide 24 (22-30) mmol/L Anion Gap 11 (10-20) BUN 24 H (7-17) mg/dl Creatinine 0.7 (0.7-1.2) mg/dL Est GFR ( Amer) > 60 Est GFR (Non-Af Amer) > 60 Random Glucose 85 (65-105) mg/dL Calcium 8.2 L (8.4-10.2) mg/dL Total Bilirubin 1.1 (0.2-1.3) mg/dl AST 23 (14-36) U/L ALT 42 (9-52) U/L Alkaline Phosphatase 69 (38-126) U/L Total Protein 5.5 L (6.3-8.2) G/DL Albumin 2.9 L D (3.5-5.0) g/dL Globulin 2.6 (2.2-3.9) gm/dL Albumin/Globulin Ratio 1.1 (1.0-2.1) Fluid Source Pericardial Blood Type Blood Type Confirm Antibody Screen Crossmatch BBK History Checked 12/19/16 12/19/16 Range/Units 13:15 13:04 WBC (4.8-10.8) K/uL RBC (3.80-5.20) Mil/uL Hgb (12.0-16.0) g/dL Hct (34.0-47.0) % MCV (81.0-99.0) fl MCH (27.0-31.0) pg MCHC (33.0-37.0) g/dL RDW (11.5-14.5) % Plt Count (130-400) K/uL Sodium (132-148) mmol/l Potassium (3.6-5.0) MMOL/L Chloride (98-107) mmol/L Carbon Dioxide (22-30) mmol/L Anion Gap (10-20) BUN (7-17) mg/dl Creatinine (0.7-1.2) mg/dL Est GFR ( Amer) Est GFR (Non-Af Amer) Random Glucose (65-105) mg/dL Calcium (8.4-10.2) mg/dL Total Bilirubin (0.2-1.3) mg/dl AST (14-36) U/L ALT (9-52) U/L Alkaline Phosphatase (38-126) U/L Total Protein (6.3-8.2) G/DL Albumin (3.5-5.0) g/dL Globulin (2.2-3.9) gm/dL Albumin/Globulin Ratio (1.0-2.1) Fluid Source Blood Type A NEGATIVE Blood Type Confirm A NEGATIVE Antibody Screen Negative Crossmatch See Detail BBK History Checked No verified bt Laboratory Results - last 24 hr 12/19/16 12/19/16 12/19/16 13:04 13:15 Unknown WBC RBC Hgb Hct MCV MCH MCHC RDW Plt Count Sodium Potassium Chloride Carbon Dioxide Anion Gap BUN Creatinine Est GFR ( Amer) Est GFR (Non-Af Amer) Random Glucose Calcium Total Bilirubin AST ALT Alkaline Phosphatase Total Protein Albumin Globulin Albumin/Globulin Ratio Fluid Source Pericardial Blood Type A NEGATIVE Blood Type Confirm A NEGATIVE Antibody Screen Negative Crossmatch See Detail BBK History Checked No verified bt 12/20/16 12/20/16 04:30 04:30 WBC 11.1 H RBC 4.20 Hgb 11.5 L Hct 36.1 MCV 86.0 MCH 27.4 MCHC 31.9 L RDW 14.4 Plt Count 191 Sodium 139 Potassium 3.1 L Chloride 107 Carbon Dioxide 24 Anion Gap 11 BUN 24 H Creatinine 0.7 Est GFR ( Amer) > 60 Est GFR (Non-Af Amer) > 60 Random Glucose 85 Calcium 8.2 L Total Bilirubin 1.1 AST 23 ALT 42 Alkaline Phosphatase 69 Total Protein 5.5 L Albumin 2.9 L D Globulin 2.6 Albumin/Globulin Ratio 1.1 Fluid Source Blood Type Blood Type Confirm Antibody Screen Crossmatch BBK History Checked Critical Care Progress Note - Extremities/Vascular Does the Patient have a Central Venous Catheter?: No Does the Patient need a Central Venous Catheter?: No - Prophylaxis GI Prophylaxis GI: Not Indicated - Prophylaxis DVT Prophylaxis DVT: SCDs - Nutrition Nutrition: Nutrition Category Date Time Status Liquid Diet [DIET] Diets 12/19/16 Dinner Active Assessment/Plan - Assessment and Plan (Free Text) Assessment: Pericardial effusion (large) with tamponade on ECHO, s/p pericardial window ?New onset / ? Paroxysmal A Fib with RVR Hypokalemia Solitary Lung Nodule and / or LV wall mass lesion Plan: - Pericardial fluid analysis, ??etiology. Orders noted, no results yet. - Consider Oncology eval. Re-review CT Chest findings. Consider Pulmonary consultation. - A Fib rate control with Digoxin. - IVF hydration: clarify orders. - K repletion, check Mag / Phos
--- NOTE | 2016-12-20 11:53 | CP.PCM.PN ---
Subjective - Date & Time of Evaluation Date of Evaluation: 12/20/16 Time of Evaluation: 11:51 - Subjective Subjective: pt s/e. no c/o. vss wbc-11k hct-33 chest tubes-170/130cc- sanguinous-no air leak cxr-satisfacotay. a/p: satisfaacoty pod#1 continue current care. Objective - Vital Signs/Intake and Output Vital Signs (last 24 hours): Temp Pulse Resp BP Pulse Ox 99.6 F 119 H 24 111/62 95 12/20/16 08:00 12/20/16 08:00 12/20/16 08:00 12/20/16 08:00 12/20/16 08:00 Intake and Output: 12/20/16 12/20/16 06:59 18:59 Intake Total 300 Output Total 1580 Balance -1580 300 - Medications Medications: Current Medications Atorvastatin Calcium (Lipitor) 80 mg PO [facility] Last Admin: 12/19/16 22:20 Dose: Not Given Hydromorphone HCl (Dilaudid) 0.5 mg IVP Q3H PRN PRN Reason: Pain, moderate (4-7) Last Admin: 12/20/16 04:54 Dose: 0.5 mg Hydromorphone HCl (Dilaudid) 0.5 mg IVP Q15M PRN PRN Reason: Pain, moderate (4-7) Last Admin: 12/19/16 19:25 Dose: 0.5 mg Cefazolin Sodium 1 gm/ Sodium (Chloride) 100 mls @ 100 mls/hr IVPB Q8 [facility] Stop: 12/21/16 09:59 Last Admin: 12/20/16 08:17 Dose: 100 mls/hr Lactated Ringer's (Lactated Ringer's) 1,000 mls @ 66 mls/hr IV .[id number] PRN PRN Reason: Urine Output Below 30 mL/hr Sodium Chloride (Sodium Chloride 0.9%) 1,000 mls @ 175 mls/hr IV .Q5H43M PRN PRN Reason: Hypotension Ondansetron HCl (Zofran Inj) 4 mg IVP Q6 PRN PRN Reason: Nausea/Vomiting Last Admin: 12/20/16 05:00 Dose: 4 mg Potassium Chloride (K-Dur 20 Meq Er Tab) 40 meq PO ONCE ONE Stop: 12/20/16 06:58 Potassium Chloride (K-Dur 20 Meq Er Tab) 20 meq PO ONCE ONE Stop: 12/20/16 08:01 - Labs Labs: 12/20/16 04:30 12/20/16 04:30 PT 13.9 Seconds (9.8-13.1) H 12/18/16 20:10 INR 1.2 (0.9-1.2) 12/18/16 20:10 APTT 36.6 Seconds (25.6-37.1) 12/18/16 20:10
--- NOTE | 2016-12-20 11:56 | RAD ---
PROCEDURE: CHEST RADIOGRAPH, 1 VIEW HISTORY: post op pericardial window COMPARISON: 12/18/2016 FINDINGS: LUNGS: Pulmonary vascular congestion. Consolidative changes right lower lobe. PLEURA: No pneumothorax or pleural fluid seen. CARDIOVASCULAR: Cardiomegaly, mild CHF. OSSEOUS STRUCTURES: No significant abnormalities. VISUALIZED UPPER ABDOMEN: Normal. OTHER FINDINGS: None. IMPRESSION: Satisfactory postoperative status. Presumed postoperative atelectasis/infiltrate right lower lobe. Pulmonary vascular congestion identified.
[2016-12-20] MEDS ORDERED: Digoxin 500 mcg/2ml (0.5 mg/2ml) Inj ONE (12:19)
[2016-12-20 12:27] LABS: BF GROSS APPEARANCE TURBID (CLEAR)
[2016-12-20 12:28] LABS: BODY FLUID TOTAL COUNT 100 (0-0)
--- NOTE | 2016-12-20 15:07 | PN ---
DATE: 12/20/2016 SUBJECTIVE: The patient underwent a pericardial window and has a pericardiostomy tube that drained s o far 300 mL. The patient's shortness of breath has improved. She denies any chest pain and still i n mild sinus tachycardia. No reported ventricular arrhythmia. PHYSICAL EXAMINATION: VITAL SIGNS: Blood pressure 108/64, heart rate 117, temperature 98.3, respirations 24. HEENT: Normocephalic. NECK: No JVD. CHEST: Clear. HEART: S1, S2, regular. EXTREMITIES: No edema. LABORATORIES: CBC: WBC 11.1, hemoglobin 11.5, hematocrit 36.1; platelet count 191,000. SMA-7: Sod ium 139, potassium 3.1, chloride 107, CO2 of 24, glucose 85, BUN 24, creatinine 0.7. Two sets of tro ponins are negative. TSH level is within normal limits. I did review the abdomen and pelvis CT scan, and the findings were suspicious of a mass lesion adjacent to the lateral wall of the left cardiac ventricle, measures 4.3 cm, possibly primary maligna nt neoplasm. Moderate to large right and small left pleural effusion. 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 ASSESSMENT: 1. Status post pericardial window for significant pericardial effusion and cardiac tamponade. 2. Paroxysmal atrial fibrillation. 3. Hypokalemia. 4. Dehydration. 5. Rule out underlying malignancy. RECOMMENDATIONS: Continue current lactated Ringer's infusion 60 mL an hour, K-Dur 20 mEq was adminis tered . Continue IV cefazolin at 1 gram q. 8 hours and Lipitor at 80 mg once a day. Obtain a B MP at 2 p.m. and humidified nasal O2 as the patient is experiencing dryness of her throat. Thor Still MD cc: [id number] TT: 12/20/2016 14:42:13 Confirmation # [id number] Dictation # [id number] ct 12/20/2016 14:06:41
--- NOTE | 2016-12-20 15:44 | RAD ---
PROCEDURE: CHEST RADIOGRAPH, 1 VIEW. Upright study 04:55. HISTORY: post op pericardial window, Comparison COMPARISON: December 19, 2016. FINDINGS: LUNGS: Stable consolidative changes/ atelectasis. PLEURA: Stable pleural effusions. CARDIOVASCULAR: Cardiomegaly. No evidence of acute, significant cardiovascular disease. OSSEOUS STRUCTURES: No significant abnormalities. VISUALIZED UPPER ABDOMEN: Normal. OTHER FINDINGS: None. IMPRESSION: Interval improvement pulmonary vascular congestion. Otherwise no interval change.
[2016-12-20] MEDS ORDERED: Albuterol-Ipratrop 3 mg / 0.5 (3 ml) UD INH STA (18:42)
--- NOTE | 2016-12-20 22:47 | PN ---
DATE: 12/20/2016 SUBJECTIVE: The patient is seen today, 12/20/2016, status post pericardial window. PHYSICAL EXAMINATION: VITAL SIGNS: Blood pressure was 108/52, temperature 98.6, respiratory rate 20, and pulse is 120. HEENT: Pupils equal, reactive to light. Normal-appearing mucosa of the conjunctivae, oropharyngeal and nasal membrane mucosa. NECK: Supple, no JVD, no carotid bruit, no lymph node, no thyromegaly. CHEST AND LUNGS: Bilateral symmetrical expansion, good air exchange, no rales, no rhonchi. CARDIOVASCULAR: PMI not localized. S1, S2. No additional sounds. ABDOMEN: Normoactive bowel sounds, no tenderness, no organomegaly, no masses. EXTREMITIES: No cyanosis, no clubbing, no edema. CENTRAL NERVOUS SYSTEM: Alert, awake, oriented x 2. No neurological deficits could be appreciated. ASSESSMENT: 1. Cardiac tamponade status post pericardial window. 2. Paroxysmal atrial fibrillation. PLAN: Continue current medications and follow cardiology recommendations. Continue current antibiot ic and follow the workup sent for the pericardial fluid. Herlinda Hopson MD cc: [id number] TT: 12/20/2016 22:46:08 Confirmation # [id number] Dictation # [id number]
[2016-12-21] MEDS: ceFAZolin 1 GM in Sodium Chloride 0.9% 100 ML IVPB SCH ×2 (01:20→08:13)
[2016-12-21 05:01] LABS: BASO # 0.1 K/uL (0.0-0.2); BASO % 0.5 % (0.0-2.0); EOS % 0.1 % (0.0-4.0); HEMATOCRIT 36.3 % (34.0-47.0); LYMPH # 0.5 K/uL (1.0-4.3); LYMPH % 4.4 % (20.0-40.0); MEAN CELL VOLUME 85.8 fl (81.0-99.0); MEAN CORPUSCULAR HEMOGLOBIN 27.9 pg (27.0-31.0); MEAN CORPUSCULAR HGB CONC 32.5 g/dL (33.0-37.0); MEAN PLATELET VOLUME 8.4 fl (7.2-11.7); MONO # 1.1 K/uL (0.0-0.8); MONO % 9.2 % (0.0-10.0); NEUT # 10.1 K/uL (1.8-7.0); NEUT % 85.8 % (50.0-75.0); NRBC % 0.1 % (0.0-0.0); RED CELL DISTRIBUTION WIDTH 14.6 % (11.5-14.5); WHITE BLOOD COUNT 11.8 K/uL (4.8-10.8)
[2016-12-21 05:13] LABS: ALKALINE PHOSPHATASE 70 U/L (38-126); ALT/SGPT 34 U/L (9-52); AST/SGOT 23 U/L (14-36); BILIRUBIN,TOTAL 1.2 mg/dl (0.2-1.3); BLOOD UREA NITROGEN 17 mg/dl (7-17); CALCIUM 8.2 mg/dL (8.4-10.2); CARBON DIOXIDE 28 mmol/L (22-30); CHLORIDE 104 mmol/L (98-107); GFR AFRICAN-AMERICAN > 60; GLUCOSE,RANDOM 95 mg/dL (65-105); MAGNESIUM 1.4 MG/DL (1.6-2.3); PHOSPHOROUS 2.9 mg/dl (2.5-4.5); SODIUM 139 mmol/l (132-148); TOTAL PROTEIN 5.5 G/DL (6.3-8.2)
[2016-12-21 05:20] LABS: ALB/GLOB RATIO 1.2 (1.0-2.1)
[2016-12-21] MEDS ORDERED: Magnesium Sulfate 2 gm/50 ml 2 GM/50 ML BAG IVPB ONE (06:44)
[2016-12-21] MEDS ORDERED: Potassium Chloride 20 mEq ER Tab PO ONE ×2 (06:44→07:35)
[2016-12-21] MEDS: HYDROmorphone 0.5 mg/0.5 ml ISec IVP PRN ×2 (07:35→22:59)
--- NOTE | 2016-12-21 13:10 | CP.CCUPN ---
CCU Subjective - Physician Review Subjective (Free Text): More confused this AM, + COLLINS, on High Flow nasal cannula, 88-92% SPO2 on 50% oxygen. In A. Fib, with HR in 90's to 140's. CCU Objective - Vital Signs / Intake & Output Vital Signs (Last 4 hours): Vital Signs Temp Pulse Resp BP Pulse Ox 12/21/16 12:00 124 H 22 102/54 L 92 L 12/21/16 11:53 98.0 F 12/21/16 11:00 86 15 90/57 L 92 L 12/21/16 10:00 92 H 16 105/47 L 92 L Intake and Output (Last 8hrs): Intake & Output 12/20/16 12/21/16 12/21/16 22:59 06:59 14:59 Intake Total 1200 100 390 Output Total 875 640 Balance 325 -540 390 Intake: IV 700 Intake, Piggyback 100 100 150 Oral 400 240 Output: Drainage 50 140 Left Medial Chest 20 50 Right Medial Chest 30 90 Urine 825 500 Urethral (Petty) 400 Urine, Voided 425 500 Other: # Voids Urine, Voided 4 1 - Physical Exam Head: Positive for: Atraumatic, Normocephalic. Negative for: Tenderness, Contusion, Swelling, Ecchymosis Pupils: Positive for: PERRL. Negative for: Sluggish, Non-Reactive, Pinpoint Extroacular Muscles: Positive for: EOMI. Negative for: Gaze Palsy, Entrapment Conjunctiva: Positive for: Normal. Negative for: Injected, Icteric Ears: Positive for: Normal Mouth: Positive for: Moist Mucous Membranes. Negative for: Dry, Drooling Pharnyx: Positive for: Normal. Negative for: ERYTHEMA Nose (Internal): Positive for: Normal Inspection, No Active Bleeding Neck: Positive for: Normal Range of Motion, Trachea Midline. Negative for: Meningeal Signs, MIDLINE TENDERNESS, Paraspinal Tenderness, JVD, Lymphadenopathy , Bruit, Other Respiratory/Chest: Positive for: Good Air Exchange, Tachypneic, Other (Chest tubes intact). Negative for: Respiratory Distress, Accessory Muscle Use, Wheezes, Decreased Breath Sounds, Rales, Rhonchi Cardiovascular: Positive for: Irregular Rhythm, Peripheal Pulses Present, Tachycardic, Bradycardic. Negative for: Murmurs Abdomen: Positive for: Normal Bowel Sounds. Negative for: Tenderness, Distention, Peritoneal Signs Neurological: Positive for: GCS=15, CN II-XII Intact, Speech Normal, Motor Func Grossly Intact, Normal Sensory Function Psychiatric: Positive for: Alert, Oriented x 3, Normal Insight, Normal Concentration, Normal Affect, Normal Mood - Medications Active Medications: Active Medications Generic Name Dose Route Start Last Admin Trade Name Freq PRN Reason Stop Dose Admin Atorvastatin Calcium 80 mg 12/18/16 22:00 12/20/16 21:36 Lipitor PO 80 mg HS WING Administration Furosemide 20 mg 12/21/16 18:33 Lasix IV 12/21/16 18:34 ONCE ONE Hydromorphone HCl 0.5 mg 12/19/16 18:34 12/21/16 07:35 Dilaudid IVP 0.5 mg Q3H PRN Administration Pain, moderate (4-7) Hydromorphone HCl 0.5 mg 12/19/16 18:37 12/19/16 19:25 Dilaudid IVP 0.5 mg Q15M PRN Administration Pain, moderate (4-7) Nystatin 1 applic 12/20/16 13:00 12/21/16 12:59 Nystop Topical Powder TOP 1 applic TID WING Administration Ondansetron HCl 4 mg 12/19/16 21:03 12/20/16 05:00 Zofran Inj IVP 4 mg Q6 PRN Administration Nausea/Vomiting - Patient Studies Lab Studies: Microbiology Studies 12/20/16 Unknown Anaerobic Culture - Final Pericardial Fluid NO ANAEROBES ISOLATED. 12/20/16 Unknown Gram Stain - Final Other: Please Indicate Wound Culture - Preliminary NO GROWTH AFTER 24 HOURS Lab Studies 12/21/16 12/21/16 Range/Units 04:15 04:15 WBC 11.8 H (4.8-10.8) K/uL RBC 4.23 (3.80-5.20) Mil/uL Hgb 11.8 L (12.0-16.0) g/dL Hct 36.3 (34.0-47.0) % MCV 85.8 (81.0-99.0) fl MCH 27.9 (27.0-31.0) pg MCHC 32.5 L (33.0-37.0) g/dL RDW 14.6 H (11.5-14.5) % Plt Count 195 (130-400) K/uL MPV 8.4 (7.2-11.7) fl Neut % (Auto) 85.8 H (50.0-75.0) % Lymph % (Auto) 4.4 L (20.0-40.0) % [place] % (Auto) 9.2 (0.0-10.0) % Eos % (Auto) 0.1 (0.0-4.0) % Baso % (Auto) 0.5 (0.0-2.0) % Neut # 10.1 H (1.8-7.0) K/uL Lymph # 0.5 L (1.0-4.3) K/uL Bent # 1.1 H (0.0-0.8) K/uL Eos # 0.0 (0.0-0.7) K/uL Baso # 0.1 (0.0-0.2) K/uL Sodium 139 (132-148) mmol/l Potassium 3.0 L (3.6-5.0) MMOL/L Chloride 104 (98-107) mmol/L Carbon Dioxide 28 (22-30) mmol/L Anion Gap 10 (10-20) BUN 17 (7-17) mg/dl Creatinine 0.6 L (0.7-1.2) mg/dL Est GFR ( Amer) > 60 Est GFR (Non-Af Amer) > 60 Random Glucose 95 (65-105) mg/dL Calcium 8.2 L (8.4-10.2) mg/dL Phosphorus 2.9 (2.5-4.5) mg/dl Magnesium 1.4 L (1.6-2.3) MG/DL Total Bilirubin 1.2 (0.2-1.3) mg/dl AST 23 (14-36) U/L ALT 34 (9-52) U/L Alkaline Phosphatase 70 (38-126) U/L Total Protein 5.5 L (6.3-8.2) G/DL Albumin 2.9 L (3.5-5.0) g/dL Globulin 2.5 (2.2-3.9) gm/dL Albumin/Globulin Ratio 1.2 (1.0-2.1) Laboratory Results - last 24 hr 12/21/16 12/21/16 04:15 04:15 WBC 11.8 H RBC 4.23 Hgb 11.8 L Hct 36.3 MCV 85.8 MCH 27.9 MCHC 32.5 L RDW 14.6 H Plt Count 195 MPV 8.4 Neut % (Auto) 85.8 H Lymph % (Auto) 4.4 L [place] % (Auto) 9.2 Eos % (Auto) 0.1 Baso % (Auto) 0.5 Neut # 10.1 H Lymph # 0.5 L Bent # 1.1 H Eos # 0.0 Baso # 0.1 Sodium 139 Potassium 3.0 L Chloride 104 Carbon Dioxide 28 Anion Gap 10 BUN 17 Creatinine 0.6 L Est GFR ( Amer) > 60 Est GFR (Non-Af Amer) > 60 Random Glucose 95 Calcium 8.2 L Phosphorus 2.9 Magnesium 1.4 L Total Bilirubin 1.2 AST 23 ALT 34 Alkaline Phosphatase 70 Total Protein 5.5 L Albumin 2.9 L Globulin 2.5 Albumin/Globulin Ratio 1.2 Radiology Interpretations (Free Text): small Bilat pleural effusions (my interp) Review of Systems - Review of Systems All systems: reviewed and no additional remarkable complaints except - EENT Eyes: UNREMARKABLE Ears: UNREMARKABLE Nose/Mouth/Throat: UNREMARKABLE - Cardiovascular Cardiovascular: Dyspnea on Exertion, Rapid Heart Rate. absent: Chest Pain - Respiratory Respiratory: absent: Cough - Gastrointestinal Gastrointestinal: UNREMARKABLE - Integumentary Integumentary: UNREMARKABLE - Neurological Neurological: As Per HPI, Confusion - Psychiatric Psychiatric: Behavioral Changes Critical Care Progress Note - Nutrition Nutrition: Nutrition Category Date Time Status Heart Healthy Diet [DIET] Diets 12/21/16 Breakfast Active Assessment/Plan - Assessment and Plan (Free Text) Assessment: Pericardial effusion (large) with tamponade on ECHO, s/p pericardial window Delirium ?New onset / ? Paroxysmal A Fib with RVR Hypokalemia Solitary Lung Nodule and / or LV wall mass lesion Plan: - Pericardial fluid analysis, ??etiology. Orders noted, no results yet. - Consider Oncology eval. Re-review CT Chest findings. Consider Pulmonary consultation. - A Fib rate control with Digoxin prn - IVF hydration. - K repletion, supplement Mag
--- NOTE | 2016-12-21 13:19 | CP.PCM.PN ---
Subjective - Date & Time of Evaluation Date of Evaluation: 12/21/16 Time of Evaluation: 13:15 - Subjective Subjective: Pt s/e. Disoriented x4. wbc-11,8k hct-36ie stable. chest tubes-120/70-serous no airl leak. Yehr-[id number]-zvaqixzv so far. cytology tissues-pending. a/p: Satisfactory pod #2. Continue current care. Objective - Vital Signs/Intake and Output Vital Signs (last 24 hours): Temp Pulse Resp BP Pulse Ox 98.0 F 124 H 22 102/54 L 92 L 12/21/16 11:53 12/21/16 12:00 12/21/16 12:00 12/21/16 12:00 12/21/16 12:00 Intake and Output: 12/21/16 12/21/16 06:59 18:59 Intake Total 100 390 Output Total 1065 Balance -965 390 - Medications Medications: Current Medications Atorvastatin Calcium (Lipitor) 80 mg PO HS [facility] Last Admin: 12/20/16 21:36 Dose: 80 mg Furosemide (Lasix) 20 mg IV ONCE ONE Stop: 12/21/16 18:34 Hydromorphone HCl (Dilaudid) 0.5 mg IVP Q3H PRN PRN Reason: Pain, moderate (4-7) Last Admin: 12/21/16 07:35 Dose: 0.5 mg Hydromorphone HCl (Dilaudid) 0.5 mg IVP Q15M PRN PRN Reason: Pain, moderate (4-7) Last Admin: 12/19/16 19:25 Dose: 0.5 mg Nystatin (Nystop Topical Powder) 1 applic TOP TID WING Last Admin: 12/21/16 12:59 Dose: 1 applic Ondansetron HCl (Zofran Inj) 4 mg IVP Q6 PRN PRN Reason: Nausea/Vomiting Last Admin: 12/20/16 05:00 Dose: 4 mg - Labs Labs: 12/21/16 04:15 12/21/16 04:15 PT 13.9 Seconds (9.8-13.1) H 12/18/16 20:10 INR 1.2 (0.9-1.2) 12/18/16 20:10 APTT 36.6 Seconds (25.6-37.1) 12/18/16 20:10
[2016-12-21] MEDS ORDERED: Digoxin 500 mcg/2ml (0.5 mg/2ml) Inj IVP ONE (15:11)
--- NOTE | 2016-12-21 15:35 | RAD ---
HISTORY: f/u status post - pericardial window COMPARISON: No prior. FINDINGS: LUNGS: Slightly improved vascular congestive changes however persistent bilateral effusions and suspected bibasilar atelectasis. PLEURA: No significant pleural effusion identified, no pneumothorax apparent. CARDIOVASCULAR: Cardiomegaly. OSSEOUS STRUCTURES: No significant abnormalities. VISUALIZED UPPER ABDOMEN: Normal. OTHER FINDINGS: None. IMPRESSION: Slightly improved vascular congestive changes however persistent bilateral effusions and suspected bibasilar atelectasis.
[2016-12-21 15:41] VITALS: PULSE 143
--- NOTE | 2016-12-21 16:19 | PN ---
DATE: 12/21/2016 The patient is currently in atrial flutter with 2:1 conduction. She denies any chest pain. PHYSICAL EXAMINATION: VITAL SIGNS: Blood pressure 141/75, heart rate 140, temperature 98, respiration 14. HEENT: Normocephalic. CHEST: Bilateral rhonchi. HEART: S1, S2 regular. ABDOMEN: Soft. EXTREMITIES: No edema. LABORATORIES: Hemoglobin and hematocrit 11.8 and 36.3, white count and platelet count are 11.8 and 1 95,000. Today's potassium is 3.0, significantly below normal. Rheumatoid panel is negative. ____ f luid was dark red with elevated LDH of 2799 with significant white/red blood cells with elevated tota l cell count and elevated lymphocytes. The appearance was turbid. Today's chest x-ray revealed mild cardiomegaly, right lower lobe infiltrate and ____ edema. ASSESSMENT: 1. Status post pericardial window for precardiac tamponade. 2. Paroxysmal atrial fibrillation and atrial flutter. The patient is currently in atrial flutter wi th 2:1 conduction. 3. Suspicion of a mass lesion adjacent to the lateral wall of the left cardiac ventricle, measures a bout 4.3 cm. Consider underlying malignancy. RECOMMENDATIONS: Continue current Lasix 20 mg intravenous once a day, Lipitor at 80 mg once a day. I will administer 1 dose of digoxin 0.25 mg intravenously and if heart rate does not improve, I will consider initiating intravenous Cardizem infusion. Thor Still MD cc: [id number] TT: 12/21/2016 16:18:38 Confirmation # [id number] Dictation # [id number] sn
--- NOTE | 2016-12-21 22:48 | PN ---
DATE: 12/21/2016 SUBJECTIVE: The patient is seen today, 12/21/2016. She is not in any cardiopulmonary distress. The patient is status post pericardial window, day #2. PHYSICAL EXAMINATION: VITAL SIGNS: Blood pressure is 95/78, temperature 98.3, respiratory rate 25, and heart rate 120. HEENT: Pupils equal, reactive to light. Normal-appearing mucosa of the conjunctivae, oropharyngeal and nasal membrane mucosa. NECK: Supple, no JVD, no carotid bruit, no lymph node, no thyromegaly. CHEST AND LUNGS: Bilateral symmetrical expansion. Good air exchange. No rales, no rhonchi. CARDIOVASCULAR: PMI not localized. S1, S2. No additional sounds. ABDOMEN: Normoactive bowel sounds, no tenderness, no organomegaly, no masses. EXTREMITIES: No cyanosis, no clubbing, no edema. CENTRAL NERVOUS SYSTEM: Alert, awake, oriented x 2. No neurological deficits could be appreciated. ASSESSMENT: 1. Cardiac tamponade. 2. Paroxysmal atrial fibrillation. 3. Hypertension. PLAN: Continue current ICU management. Follow cardiology recommendations. [facility] Yas Hopson MD cc: [id number] TT: 12/21/2016 22:47:34 Confirmation # [id number] Dictation # [id number] ln
[2016-12-21] MEDS ORDERED: Metoprolol 1 mg/ml Inj IVP STA (23:50)
[2016-12-22 01:30] LABS: RHEUMATOID FACTOR 7 IU/mL (<14)
[2016-12-22 05:41] LABS: ALKALINE PHOSPHATASE 60 U/L (38-126); ALT/SGPT 31 U/L (9-52); AST/SGOT 25 U/L (14-36); BASO % 0.2 % (0.0-2.0); BLOOD UREA NITROGEN 17 mg/dl (7-17); CALCIUM 8.2 mg/dL (8.4-10.2); CARBON DIOXIDE 27 mmol/L (22-30); CHLORIDE 106 mmol/L (98-107); EOS % 0.4 % (0.0-4.0); GFR AFRICAN-AMERICAN > 60; GLUCOSE,RANDOM 88 mg/dL (65-105); HEMATOCRIT 34.6 % (34.0-47.0); LYMPH # 0.4 K/uL (1.0-4.3); LYMPH % 4.5 % (20.0-40.0); MEAN CELL VOLUME 87.8 fl (81.0-99.0); MEAN CORPUSCULAR HEMOGLOBIN 27.9 pg (27.0-31.0); MEAN CORPUSCULAR HGB CONC 31.7 g/dL (33.0-37.0); MEAN PLATELET VOLUME 8.3 fl (7.2-11.7); MONO # 0.8 K/uL (0.0-0.8); MONO % 8.7 % (0.0-10.0); NEUT % 86.2 % (50.0-75.0); NRBC % 0.1 % (0.0-0.0); PLATELET COUNT 167 K/uL (130-400); POTASSIUM 3.5 MMOL/L (3.6-5.0); RED CELL DISTRIBUTION WIDTH 14.8 % (11.5-14.5); SODIUM 140 mmol/l (132-148); TOTAL PROTEIN 5.1 G/DL (6.3-8.2); WHITE BLOOD COUNT 9.3 K/uL (4.8-10.8)
[2016-12-22 07:29] LABS: NEUTROPHIL 89 % (42-75); TOTAL CELLS COUNTED 100
[2016-12-22 07:30] LABS: ACANTHOCYTES SLIGHT
--- NOTE | 2016-12-22 10:04 | CP.PCM.PN ---
Subjective - Date & Time of Evaluation Date of Evaluation: 12/22/16 Time of Evaluation: 07:15 - Subjective Subjective: Patient seen and examined this morning. As per nursing patient was restless over night, was trying to pull off high flow cannula, was medicated w/ Ativan. Right chest tube output: 100cc/24hrs serosanguinous from R chest tube, and 75cc/ 24 hrs from L chest tube. Objective - Vital Signs/Intake and Output Vital Signs (last 24 hours): Temp Pulse Resp BP Pulse Ox 97.9 F 82 17 141/68 100 12/22/16 07:33 12/22/16 07:33 12/22/16 07:33 12/22/16 07:33 12/22/16 07:33 Intake and Output: 12/22/16 12/22/16 06:59 18:59 Intake Total 100 Output Total 430 Balance -330 - Medications Medications: Current Medications Atorvastatin Calcium (Lipitor) 80 mg PO HS [facility] Last Admin: 12/21/16 21:44 Dose: 80 mg Bacitracin (Bacitracin Oint) 1 applic TOP DAILY [facility] Haloperidol Lactate (Haldol) 5 mg IVP Q6 PRN PRN Reason: Agitation Hydromorphone HCl (Dilaudid) 0.5 mg IVP Q3H PRN PRN Reason: Pain, moderate (4-7) Last Admin: 12/21/16 22:59 Dose: 0.5 mg Hydromorphone HCl (Dilaudid) 0.5 mg IVP Q15M PRN PRN Reason: Pain, moderate (4-7) Last Admin: 12/19/16 19:25 Dose: 0.5 mg Nystatin (Nystop Topical Powder) 1 applic TOP TID [facility] Last Admin: 12/22/16 08:11 Dose: 1 applic Ondansetron HCl (Zofran Inj) 4 mg IVP Q6 PRN PRN Reason: Nausea/Vomiting Last Admin: 12/20/16 05:00 Dose: 4 mg - Labs Labs: 12/22/16 04:45 12/22/16 04:45 PT 13.9 Seconds (9.8-13.1) H 12/18/16 20:10 INR 1.2 (0.9-1.2) 12/18/16 20:10 APTT 36.6 Seconds (25.6-37.1) 12/18/16 20:10 - Constitutional Appears: No Acute Distress - Head Exam Head Exam: NORMOCEPHALIC - Eye Exam Eye Exam: Normal appearance - ENT Exam ENT Exam: Mucous Membranes Moist - Respiratory Exam Respiratory Exam: NORMAL BREATHING PATTERN - Cardiovascular Exam Cardiovascular Exam: +S1, +S2. absent: Tachycardia - GI/Abdominal Exam GI & Abdominal Exam: Soft - Neurological Exam Neurological Exam: absent: Oriented x3 - Skin Skin Exam: Dry, Rash, Warm Assessment and Plan - Assessment and Plan (Free Text) Assessment: 76yo F s/p Pericardial window for Cardiac tamponade, POD #3 -WBC 9.3 -Continue pericardial chest tubes to wall suction -heart healthy diet -Pain control prn -F/U CXR -Encourage OOB to chair, Incentive Spirometer -Awaiting pericardial fluid analysis -Cont current care Further recs per Dr Solo
--- NOTE | 2016-12-22 10:04 | RAD ---
HISTORY: With midchest tubes (s/p pericardial window) COMPARISON: Comparison is made to the previous study dated 12/21/2016 FINDINGS: LUNGS: Partial atelectasis of the right lower lobe. Linear opacity seen at the mid and lower portion of both lungs. PLEURA: Right pleural effusion is noted. CARDIOVASCULAR: The heart is enlarged. OSSEOUS STRUCTURES: No significant abnormalities. VISUALIZED UPPER ABDOMEN: Normal. OTHER FINDINGS: None. IMPRESSION: Possible mild interval worsening of the right pleural effusion since the previous study. Cardiomegaly.
--- NOTE | 2016-12-22 12:00 | PN ---
DATE: 12/22/2016 The patient is confused and at times . She is in rapid atrial fibrillation. PHYSICAL EXAMINATION: VITAL SIGNS: Blood pressure 123/62, heart rate 107, temperature 97.9, respirations 20. HEENT: Normocephalic. NECK: No JVD. CHEST: Diminished breath sounds over the right base. HEART: S1, S2 regular. EXTREMITIES: Significant muscle wasting. LABORATORIES: Hemoglobin and hematocrit 11 and 34.6, white count and platelet count are within mela l limit. Today's potassium is 3.5, which is improved from 3.0 yesterday. BUN and creatinine are 17 and 0.6, which is an improvement of the patient's prior prerenal azotemia. Today's chest x-ray repor greg possible mild interval worsening of the right pleural effusion since previous study. Cardiomegal y. ASSESSMENT: 1. Status post pericardial window for significant pericardial effusion, as well as pericardial tampo nade. 2. Questionable lung mass. 3. Right pleural effusion. 4. Paroxysmal atrial fibrillation and atrial flutter 5. Borderline hypokalemia. RECOMMENDATIONS: Continue current Haldol 5 mg IM q. 6 hours p.r.n. for agitation. Continue Lipitor at 80 mg once a day. No further Lasix therapy. We will administer 1 dose of 0.25 mg of digoxin intr avenously. The pathology report of the pericardial fluid and fat pad were consistent with pericardia l showing reactive hyperplasia with scattered foci of mixed mild acute/chronic inflammation, in tense congestion and attached fibroadipose tissue shows organized hemorrhage. Focal granulation tiss ue reaction and benign lymphoid nodules were also mentioned. No evidence of malignancy. Thor Still MD cc: [id number] TT: 12/22/2016 11:59:39 Confirmation # [id number] Dictation # [id number]
[2016-12-22] MEDS: Bacitracin OINT 15GM TOP SCH (12:06)
--- NOTE | 2016-12-22 12:36 | CP.CCUPN ---
CCU Subjective - Physician Review Subjective (Free Text): Remains intermittently agitated and confused this AM, + COLLINS, on High Flow nasal cannula, 88-92% SPO2 on 45% oxygen. In A. Fib, with HR in 90's to 140's, but was in NSR early with HR in 70's. Chest tubes remain, both below approx 100 ml drainage each. CCU Objective - Vital Signs / Intake & Output Vital Signs (Last 4 hours): Vital Signs Temp Pulse Resp BP Pulse Ox 12/22/16 11:47 98.0 F 101 H 22 109/55 L 98 12/22/16 11:21 14 12/22/16 10:00 107 H 20 123/62 97 Intake and Output (Last 8hrs): Intake & Output 12/21/16 12/22/16 12/22/16 22:59 06:59 14:59 Intake Total 220 0 Output Total 200 430 Balance 20 -430 0 Intake: IV 0 Oral 220 0 Output: Chest Tube Drainage 50 Left Mediastinal 50 Drainage 50 180 Left Medial Chest 20 140 Right Medial Chest 30 40 Urine 100 250 Urine, Voided 100 250 Other: # Voids Urine, Voided 3 - Physical Exam Head: Positive for: Atraumatic, Normocephalic. Negative for: Tenderness, Contusion, Swelling, Ecchymosis Pupils: Positive for: PERRL. Negative for: Sluggish, Non-Reactive, Pinpoint Extroacular Muscles: Positive for: EOMI. Negative for: Gaze Palsy, Entrapment Conjunctiva: Positive for: Normal. Negative for: Injected, Icteric Ears: Positive for: Normal Mouth: Positive for: Moist Mucous Membranes. Negative for: Dry, Drooling Pharnyx: Positive for: Normal. Negative for: ERYTHEMA Nose (Internal): Positive for: Normal Inspection, No Active Bleeding Neck: Positive for: Normal Range of Motion, Trachea Midline. Negative for: Meningeal Signs, MIDLINE TENDERNESS, Paraspinal Tenderness, JVD, Lymphadenopathy , Bruit, Other Respiratory/Chest: Positive for: Good Air Exchange, Tachypneic, Other (Chest tubes intact). Negative for: Respiratory Distress, Accessory Muscle Use, Wheezes, Decreased Breath Sounds, Rales, Rhonchi Cardiovascular: Positive for: Irregular Rhythm, Peripheal Pulses Present, Tachycardic, Bradycardic. Negative for: Murmurs Abdomen: Positive for: Normal Bowel Sounds. Negative for: Tenderness, Distention, Peritoneal Signs Lower Extremity: Negative for: Edema, CALF TENDERNESS, Erythema Neurological: Positive for: GCS=15, CN II-XII Intact, Speech Normal, Motor Func Grossly Intact, Normal Sensory Function Psychiatric: Positive for: Alert, Oriented x 3, Normal Insight, Normal Concentration, Normal Affect, Normal Mood - Medications Active Medications: Active Medications Generic Name Dose Route Start Last Admin Trade Name Freq PRN Reason Stop Dose Admin Atorvastatin Calcium 80 mg 12/18/16 22:00 12/21/16 21:44 Lipitor PO 80 mg HS WING Administration Bacitracin 1 applic 12/22/16 09:45 12/22/16 12:06 Bacitracin Oint TOP 1 applic DAILY WING Administration Haloperidol Lactate 5 mg 12/22/16 09:41 12/22/16 12:05 Haldol IM 5 mg Q6 PRN Administration Agitation Hydromorphone HCl 0.5 mg 12/19/16 18:34 12/21/16 22:59 Dilaudid IVP 0.5 mg Q3H PRN Administration Pain, moderate (4-7) Hydromorphone HCl 0.5 mg 12/19/16 18:37 12/19/16 19:25 Dilaudid IVP 0.5 mg Q15M PRN Administration Pain, moderate (4-7) Nystatin 1 applic 12/20/16 13:00 12/22/16 12:05 Nystop Topical Powder TOP 1 applic TID WING Administration Ondansetron HCl 4 mg 12/19/16 21:03 12/20/16 05:00 Zofran Inj IVP 4 mg Q6 PRN Administration Nausea/Vomiting - Patient Studies Lab Studies: Microbiology Studies 12/20/16 Unknown Gram Stain - Final Other: Please Indicate Wound Culture - Preliminary NO GROWTH AFTER 24 HOURS Mycobacterial Culture - Preliminary 12/20/16 Unknown Anaerobic Culture - Final Pericardial Fluid NO ANAEROBES ISOLATED. Lab Studies 12/22/16 12/22/16 12/19/16 Range/Units 04:45 04:45 12:36 WBC 9.3 (4.8-10.8) K/uL RBC 3.94 (3.80-5.20) Mil/uL Hgb 11.0 L (12.0-16.0) g/dL Hct 34.6 (34.0-47.0) % MCV 87.8 D (81.0-99.0) fl MCH 27.9 (27.0-31.0) pg MCHC 31.7 L (33.0-37.0) g/dL RDW 14.8 H (11.5-14.5) % Plt Count 167 (130-400) K/uL MPV 8.3 (7.2-11.7) fl Neut % (Auto) 86.2 H (50.0-75.0) % Lymph % (Auto) 4.5 L (20.0-40.0) % [place] % (Auto) 8.7 (0.0-10.0) % Eos % (Auto) 0.4 (0.0-4.0) % Baso % (Auto) 0.2 (0.0-2.0) % Neut # 8.0 H (1.8-7.0) K/uL Lymph # 0.4 L (1.0-4.3) K/uL [place] # 0.8 (0.0-0.8) K/uL Eos # 0.0 (0.0-0.7) K/uL Baso # 0.0 (0.0-0.2) K/uL Neutrophils % (Manual) 89 H (42-75) % Band Neutrophils % 1 (0-2) % Lymphocytes % (Manual) 4 L (20-50) % Monocytes % (Manual) 6 (0-10) % Platelet Estimate Normal (NORMAL) Anisocytosis (manual) Slight Tear Drop Cells Slight Acanthocytes (Spur) Slight Sodium 140 (132-148) mmol/l Potassium 3.5 L (3.6-5.0) MMOL/L Chloride 106 (98-107) mmol/L Carbon Dioxide 27 (22-30) mmol/L Anion Gap 11 (10-20) BUN 17 (7-17) mg/dl Creatinine 0.6 L (0.7-1.2) mg/dL Est GFR ( Amer) > 60 Est GFR (Non-Af Amer) > 60 Random Glucose 88 (65-105) mg/dL Calcium 8.2 L (8.4-10.2) mg/dL Total Bilirubin 1.0 (0.2-1.3) mg/dl AST 25 (14-36) U/L ALT 31 (9-52) U/L Alkaline Phosphatase 60 (38-126) U/L Total Protein 5.1 L (6.3-8.2) G/DL Albumin 2.6 L (3.5-5.0) g/dL Globulin 2.5 (2.2-3.9) gm/dL Albumin/Globulin Ratio 1.0 (1.0-2.1) Rheumatoid Factor 7 (<14) IU/mL DAISY Screen Negative (NEGATIVE) DAISY Titer TNP DAISY Pattern TNP Complement C3 99 mg/dL Complement C4 23 (ADULTS: 16-47) mg/dL Laboratory Results - last 24 hr 12/19/16 12/22/16 12/22/16 12:36 04:45 04:45 WBC 9.3 RBC 3.94 Hgb 11.0 L Hct 34.6 MCV 87.8 D MCH 27.9 MCHC 31.7 L RDW 14.8 H Plt Count 167 MPV 8.3 Neut % (Auto) 86.2 H Lymph % (Auto) 4.5 L [place] % (Auto) 8.7 Eos % (Auto) 0.4 Baso % (Auto) 0.2 Neut # 8.0 H Lymph # 0.4 L [place] # 0.8 Eos # 0.0 Baso # 0.0 Neutrophils % (Manual) 89 H Band Neutrophils % 1 Lymphocytes % (Manual) 4 L Monocytes % (Manual) 6 Platelet Estimate Normal Anisocytosis (manual) Slight Tear Drop Cells Slight Acanthocytes (Spur) Slight Sodium 140 Potassium 3.5 L Chloride 106 Carbon Dioxide 27 Anion Gap 11 BUN 17 Creatinine 0.6 L Est GFR ( Amer) > 60 Est GFR (Non-Af Amer) > 60 Random Glucose 88 Calcium 8.2 L Total Bilirubin 1.0 AST 25 ALT 31 Alkaline Phosphatase 60 Total Protein 5.1 L Albumin 2.6 L Globulin 2.5 Albumin/Globulin Ratio 1.0 Rheumatoid Factor 7 DAISY Screen Negative DAISY Titer TNP DAISY Pattern TNP Complement C3 99 Complement C4 23 Review of Systems - Review of Systems All systems: reviewed and no additional remarkable complaints except - Cardiovascular Cardiovascular: absent: Chest Pain - Respiratory Respiratory: Dyspnea, Wheezing - Gastrointestinal Gastrointestinal: absent: Abdominal Pain - Neurological Neurological: absent: Dizziness, Focal Weakness, Headaches Critical Care Progress Note - Nutrition Nutrition: Nutrition Category Date Time Status Heart Healthy Diet [DIET] Diets 12/21/16 Breakfast Active Assessment/Plan - Assessment and Plan (Free Text) Assessment: Pericardial effusion (large) with tamponade on ECHO, s/p pericardial window Delirium Paroxysmal A Fib with RVR Hypokalemia Solitary Lung Nodule and / or LV wall mass lesion Plan: - Pericardial / chest drains to remain given persistent drainage. - Consider Oncology eval. Re-review CT Chest findings. Consider Pulmonary consultation. - A Fib rate control with Digoxin prn - IVF hydration. - K repletion, supplement Mag -Get OOB to chair, hopefully this will help with Delirium, otherwise Haldol prn. Hold on BZDPs.
--- NOTE | 2016-12-22 12:48 | CP.PCM.PN ---
Subjective - Date & Time of Evaluation Date of Evaluation: 12/22/16 Time of Evaluation: 12:46 - Subjective Subjective: Pt s/e. chest tubes-40/100 serous drainage. Continue chest tube. Objective - Vital Signs/Intake and Output Vital Signs (last 24 hours): Temp Pulse Resp BP Pulse Ox 98 F 94 H 18 126/75 98 12/22/16 12:00 12/22/16 12:00 12/22/16 12:00 12/22/16 12:00 12/22/16 12:00 Intake and Output: 12/22/16 12/22/16 06:59 18:59 Intake Total 100 0 Output Total 430 Balance -330 0 - Medications Medications: Current Medications Atorvastatin Calcium (Lipitor) 80 mg PO HS [facility] Last Admin: 12/21/16 21:44 Dose: 80 mg Bacitracin (Bacitracin Oint) 1 applic TOP DAILY [facility] Last Admin: 12/22/16 12:06 Dose: 1 applic Haloperidol Lactate (Haldol) 5 mg IM Q6 PRN PRN Reason: Agitation Last Admin: 12/22/16 12:05 Dose: 5 mg Hydromorphone HCl (Dilaudid) 0.5 mg IVP Q3H PRN PRN Reason: Pain, moderate (4-7) Last Admin: 12/21/16 22:59 Dose: 0.5 mg Hydromorphone HCl (Dilaudid) 0.5 mg IVP Q15M PRN PRN Reason: Pain, moderate (4-7) Last Admin: 12/19/16 19:25 Dose: 0.5 mg Nystatin (Nystop Topical Powder) 1 applic TOP TID [facility] Last Admin: 12/22/16 12:05 Dose: 1 applic Ondansetron HCl (Zofran Inj) 4 mg IVP Q6 PRN PRN Reason: Nausea/Vomiting Last Admin: 12/20/16 05:00 Dose: 4 mg - Labs Labs: 12/22/16 04:45 12/22/16 04:45 PT 13.9 Seconds (9.8-13.1) H 12/18/16 20:10 INR 1.2 (0.9-1.2) 12/18/16 20:10 APTT 36.6 Seconds (25.6-37.1) 12/18/16 20:10
[2016-12-22 16:40] LABS: SM ANTIBODY <1.0 NEG AI (<1.0 NEGATIVE)
[2016-12-22 19:04] LABS: RETICULIN AB IGA NEGATIVE (NEGATIVE)
[2016-12-23 02:02] LABS: DNA AB (DS) CRITH NEGATIVE (NEGATIVE)
[2016-12-23 04:42] LABS: HEMATOCRIT 35.6 % (34.0-47.0); MEAN CELL VOLUME 86.3 fl (81.0-99.0); MEAN CORPUSCULAR HEMOGLOBIN 27.7 pg (27.0-31.0); MEAN CORPUSCULAR HGB CONC 32.1 g/dL (33.0-37.0); RED CELL DISTRIBUTION WIDTH 14.5 % (11.5-14.5); WHITE BLOOD COUNT 8.9 K/uL (4.8-10.8)
[2016-12-23 04:45] LABS: BLOOD UREA NITROGEN 19 mg/dl (7-17); CALCIUM 8.5 mg/dL (8.4-10.2); CARBON DIOXIDE 26 mmol/L (22-30); CHLORIDE 107 mmol/L (98-107); GFR AFRICAN-AMERICAN > 60; GLUCOSE,RANDOM 75 mg/dL (65-105); POTASSIUM 3.3 MMOL/L (3.6-5.0); SODIUM 143 mmol/l (132-148)
--- NOTE | 2016-12-23 07:45 | CP.PCM.PN ---
Subjective - Date & Time of Evaluation Date of Evaluation: 12/23/16 Time of Evaluation: 06:50 - Subjective Subjective: SURGERY NOTE FOR DR. JAMA 76F seen and examined at bedside. Patient seems to be going through delirium. ICU delirium. Chest tubes in place, dressings changed. Left tube- 50cc/24hrs, right tube 40cc/24hrs. Objective - Vital Signs/Intake and Output Vital Signs (last 24 hours): Temp Pulse Resp BP Pulse Ox 98.5 F 99 H 23 145/79 96 12/23/16 04:00 12/23/16 06:00 12/23/16 06:00 12/23/16 06:00 12/23/16 06:00 - Medications Medications: Current Medications Atorvastatin Calcium (Lipitor) 80 mg PO HS [facility] Last Admin: 12/22/16 21:54 Dose: Not Given Bacitracin (Bacitracin Oint) 1 applic TOP DAILY [facility] Last Admin: 12/22/16 12:06 Dose: 1 applic Haloperidol Lactate (Haldol) 5 mg IM Q6 PRN PRN Reason: Agitation Last Admin: 12/22/16 12:05 Dose: 5 mg Nystatin (Nystop Topical Powder) 1 applic TOP TID [facility] Last Admin: 12/22/16 16:37 Dose: 1 applic Ondansetron HCl (Zofran Inj) 4 mg IVP Q6 PRN PRN Reason: Nausea/Vomiting Last Admin: 12/20/16 05:00 Dose: 4 mg - Labs Labs: 12/23/16 03:50 12/23/16 03:50 PT 13.9 Seconds (9.8-13.1) H 12/18/16 20:10 INR 1.2 (0.9-1.2) 12/18/16 20:10 APTT 36.6 Seconds (25.6-37.1) 12/18/16 20:10 - Constitutional Appears: Non-toxic, No Acute Distress, Other (mild delirium) - Respiratory Exam Respiratory Exam: NORMAL BREATHING PATTERN - Cardiovascular Exam Cardiovascular Exam: REGULAR RHYTHM, +S1, +S2 Additional comments: chest tube in place - dressings changed. left tube 50cc/24hrs - right tube 40cc/ 24hrs - GI/Abdominal Exam GI & Abdominal Exam: Soft. absent: Distended, Firm, Guarding, Rigid, Tenderness , Rebound - Neurological Exam Neurological Exam: Awake Assessment and Plan - Assessment and Plan (Free Text) Assessment: 76yo F s/p Pericardial window for Cardiac tamponade, POD #4 -Continue pericardial chest tubes to wall suction - Attending to re-assess patient later in the days -heart healthy diet -Pain control prn -Encourage OOB to chair, Incentive Spirometer -Cont current care Further recs discuss with Dr. Germania Guerrero, PGY1
[2016-12-23] MEDS: Potassium CL 10mEq/100ml 100 ML IVPB SCH ×3 (09:34→12:06)
[2016-12-23] MEDS ORDERED: Potassium Chloride 20 mEq/15 ml LIQ UD PO ONE (11:57)
--- NOTE | 2016-12-23 13:37 | PN ---
DATE: 12/23/2016 SUBJECTIVE: The patient is seen today, 12/23/2016. The patient was tachycardic at a rate of 140-150 at the time of this examination. PHYSICAL EXAMINATION: GENERAL: She is awake and alert. VITAL SIGNS: Blood pressure 144/67, temperature 98.8, respiratory rate 22. HEENT: Pupils equal, reactive to light. Normal-appearing mucosa of the conjunctivae. NECK: Supple, no JVD, no carotid bruit, no lymph node, no thyromegaly. CHEST AND LUNGS: Bilateral symmetrical expansion, good air exchange, no rales, no rhonchi. CARDIOVASCULAR: PMI not localized. S1, S2, no additional sounds. There is pericardial window done and the patient is connected to drainage. ABDOMEN: Normoactive bowel sounds, no tenderness, no organomegaly, no masses. EXTREMITIES: No cyanosis, no clubbing, no edema. CENTRAL NERVOUS SYSTEM: Alert, awake, oriented x 1. No neurological deficits could be appreciated. ASSESSMENT: 1. Status post cardiac tamponade, status post pericardial window. 2. Paroxysmal atrial fibrillation with rapid ventricular rate. PLAN: We will start metoprolol 50 mg every 6 hours as tolerated as well as follow recommendations of cardiology and cardiothoracic surgery. Anticoagulation is being held because patient had hematologi c pericardial effusion. So far, the pathology is negative for malignancy. We will discuss with IR f or possible CT-guided biopsy of a mass adjacent to the pericardium. Herlinda Hopson MD cc: [id number] TT: 12/23/2016 13:36:23 Confirmation # [id number] Dictation # [id number]
--- NOTE | 2016-12-23 13:53 | RAD ---
HISTORY: chest tube COMPARISON: Comparison chest dated 12/22/2016 FINDINGS: LUNGS: Mild central pulmonary vascular congestive changes with bilateral effusions right larger than left. There may also be some mild bibasilar atelectasis. PLEURA: As above. No apparent Pneumothorax apparent. CARDIOVASCULAR: Cardiomegaly. Aorta is ectatic and uncoiled. Note again made of metallic skin closure barb over the right cardiac border and right upper quadrant of the abdomen. Drainage catheters overlying the cardiac silhouette likely draining the pericardium this patient with a history of pericardial window. OSSEOUS STRUCTURES: Mild degenerative changes of both shoulder girdles. VISUALIZED UPPER ABDOMEN: As above OTHER FINDINGS: None. IMPRESSION: Status post pericardial window with a in situ drainage catheters as above. Mild central pulmonary vascular congestive changes with bilateral effusions right larger than left. There may also be some mild bibasilar atelectasis.
[2016-12-23] MEDS ORDERED: Albuterol 0.083% Inhal Sol (2.5 mg/3 mL) UD INH ONE (15:07)
[2016-12-23] MEDS ORDERED: Albuterol-Ipratrop 3 mg / 0.5 (3 ml) UD INH PRN (15:28)
[2016-12-23] MEDS: Bacitracin OINT 15GM TOP SCH (16:37)
--- NOTE | 2016-12-23 17:16 | RAD ---
PROCEDURE: CHEST RADIOGRAPH, 1 VIEW HISTORY: s/p chest tube removed COMPARISON: Comparison chest dated 12/23/2016 at 08:17 a.m. hours FINDINGS: LUNGS: Slightly improved pulmonary vascular congestion. Persistent but improved bilateral effusions right greater than left. There may also be some residual bibasilar atelectasis right also greater than left. PLEURA: No pneumothorax or pleural fluid seen. CARDIOVASCULAR: Cardiomegaly. OSSEOUS STRUCTURES: No significant abnormalities. VISUALIZED UPPER ABDOMEN: Normal. OTHER FINDINGS: None. IMPRESSION: Slightly improved pulmonary vascular congestion. Persistent but improved bilateral effusions right greater than left. There may also be some residual bibasilar atelectasis right also greater than left.
--- NOTE | 2016-12-23 17:45 | PN ---
DATE: 12/23/2016 The patient is currently in sinus rhythm, pericardiostomy tubes were removed. PHYSICAL EXAMINATION: VITAL SIGNS: Blood pressure 141/86, heart rate 74, temperature 98.7, respirations 22. HEENT: Normocephalic. CHEST: Clear. HEART: S1, S2 regular. EXTREMITIES: No edema. LABORATORIES: Hemoglobin and hematocrit 11.4 and 35.6, white count and platelet count are within nor mal limits. Today's potassium level is 3.3. Cytology report: large amount of blood containing lymp hocytes, occasional neutrophils and a few focally active and degenerate mesothelial cells. ASSESSMENT: 1. Pericardial infusion and tamponade, status post pericardial window. 2. Paroxysmal atrial fibrillation and atrial flutter. 3. Questionable lung mass. 4. Right pleural effusion. 5. Hypokalemia. RECOMMENDATIONS: The patient did receive 40 mEq of potassium replacement today. Continue albuterol inhaler, Lipitor at 80 mg once a day, Lopressor 50 mg twice a day, start therapeutic Lovenox therapy. Thor Still MD cc: [id number] TT: 12/23/2016 17:44:39 Confirmation # [id number] Dictation # [id number] jn
--- NOTE | 2016-12-23 21:39 | PN ---
DATE: 12/23/2016 LOCATION: The patient is in ICU, bed 432. TIME SPENT: 35 minutes. Seen and evaluated at the bedside. Events since admission reviewed. Past medical, surgical and social history noted overnight, status post chest tubes with moderate drainage on high flow oxygen. Remains normotensive, afebrile. No chest pain. This morning, alert, awake, reportedly periods of agitation and confusion. PHYSICAL EXAMINATION: VITAL SIGNS: Temperature 98.8, heart rate 94, regular, blood pressure 124/56, mean arterial pressure 78, respiratory rate 22 thoracoabdominal, saturating 99% . Intake 660, output 630, positive balance 30. Chest tube drainage 50, left medial chest 160, right medial chest 70, total 230. Weight 135 pounds. HEENT: Pupils are reactive. Conjunctivae are pink. Sclerae are white. NECK: Supple. Trachea central. CHEST: No rhonchi. no subcutaneous emphysema. HEART: Rhythm regular. ABDOMEN: Bowel sounds present, soft. EXTREMITIES: Lower extremity, no edema. NEUROLOGIC: GCS equals 15. Cranial nerves intact. Speech normal. No motor deficits. Sensory system intact. PSYCHIATRIC: Alert, oriented x 3, normal affect. CURRENT MEDICATIONS: Lipitor 80 mg p.o. daily, bacitracin ointment 1 application topically daily, Haldol 5 mg IM q. 6 hours p.r.n. for agitation, nystatin powder 1 application topically 3 times daily, Zofran 4 mg IV q. 6 p.r.n., potassium chloride supplement. LABORATORY DATA: WBC 8.9, hemoglobin 11.4, hematocrit 35.6, platelet count 197. PT 13.9, INR 1.2, PTT 36.6. SMA-7: Sodium 143, potassium 3.3, chloride 107, CO2 26, blood urea nitrogen 19, creatinine 0.5, total protein 5.1, albumin 2.6. TSH 1.61. Pericardial fluid, WBC 3485, RBC 475,200, neutrophils 2, lymphocytes 98. Amylase 39, total protein 5.1. Rheumatology workup all negative. Wound culture no growth. Fungus culture negative. Anaerobic culture negative. Chest x-ray from this morning, report pending. IMPRESSION: 1. Pericardial effusion with tamponade on echo, status post pericardial window. , chest tubes removed. post removal cxr shows no pneumothorax. Residual effusio with atlectasis persist 2. Delirium, stable. 3. Paroxysmal atrial fibrillation with rapid ventricular response, controlled. 4. Hypokalemia, on potassium supplement. 5. Solitary lung nodule., may need biopsy to assess nature of nodule.. 6. Atrial fibrillation, rate controlled with digoxin p.r.n. 7.. Pathology report shows pericardial fat pad, vascularized adipose tissue with early organizing hemorrhage, focal granulation tissue reaction. Pericardial mesothelial lining showing pericardial hyperplasia with scattered foci of mixed mild acute on chronic inflammation. Intense congestion and attached fibroadipose tissue with some organizing hemorrhage. Plan. continue gentle iv hydration. Potassium supplement. Bronchodilator q 6hrs prn. out of bed to chair. Haldol prn.Conside biopsy of lung nodule when more stable. Monty Drake MD cc: [id number] TT: 12/23/2016 12:05:28 Confirmation # [id number] Dictation # [id number] ramon SAUL
[2016-12-23] MEDS: Enoxaparin 60 mg Syringe SC SCH (22:00)
[2016-12-24 00:40] LABS: MYOCARDIAL AB IF NEGATIVE (NEGATIVE); PARIETAL CELL AB <20.0 U
--- NOTE | 2016-12-24 03:00 | CP.PCM.PN ---
Subjective - Date & Time of Evaluation Date of Evaluation: 12/24/16 Time of Evaluation: 07:05 - Subjective Subjective: SURGERY PROGRESS NOTE FOR DR. JAMA 76F seen and examined at bedside. Patient denies shortness of breath, chest pain. Objective - Vital Signs/Intake and Output Vital Signs (last 24 hours): Temp Pulse Resp BP Pulse Ox 98.6 F 75 18 142/79 98 12/24/16 00:00 12/24/16 02:00 12/24/16 02:00 12/24/16 02:00 12/24/16 00:00 Intake and Output: 12/23/16 12/24/16 18:59 06:59 Intake Total 200 Output Total 1950 Balance -1750 - Medications Medications: Current Medications Albuterol/Ipratropium (Duoneb 3 Mg/0.5 Mg (3 Ml) Ud) 3 ml INH RQ6 PRN PRN Reason: Shortness of Breath Atorvastatin Calcium (Lipitor) 80 mg PO HS [facility] Last Admin: 12/23/16 21:59 Dose: 80 mg Bacitracin (Bacitracin Oint) 1 applic TOP DAILY [facility] Last Admin: 12/23/16 16:37 Dose: Not Given Enoxaparin Sodium (Lovenox) 60 mg SC Q12 [facility] PRN Reason: Protocol Last Admin: 12/23/16 22:00 Dose: 60 mg Haloperidol Lactate (Haldol) 5 mg IM Q6 PRN PRN Reason: Agitation Last Admin: 12/22/16 12:05 Dose: 5 mg Metoprolol Tartrate (Lopressor) 50 mg PO Q12 [facility] Last Admin: 12/23/16 22:17 Dose: 50 mg Nystatin (Nystop Topical Powder) 1 applic TOP TID [facility] Last Admin: 12/23/16 16:36 Dose: 1 applic Ondansetron HCl (Zofran Inj) 4 mg IVP Q6 PRN PRN Reason: Nausea/Vomiting Last Admin: 12/20/16 05:00 Dose: 4 mg - Labs Labs: 12/23/16 03:50 12/23/16 03:50 PT 13.9 Seconds (9.8-13.1) H 12/18/16 20:10 INR 1.2 (0.9-1.2) 12/18/16 20:10 APTT 36.6 Seconds (25.6-37.1) 12/18/16 20:10 - Constitutional Appears: Non-toxic, No Acute Distress - Respiratory Exam Respiratory Exam: Clear to Ausculation Bilateral, NORMAL BREATHING PATTERN - Cardiovascular Exam Cardiovascular Exam: REGULAR RHYTHM, +S1, +S2 Additional comments: incision dressing CDI - GI/Abdominal Exam GI & Abdominal Exam: Soft. absent: Distended, Firm, Guarding, Rigid, Rebound - Neurological Exam Neurological Exam: Alert, Awake Additional comments: dementia Assessment and Plan - Assessment and Plan (Free Text) Assessment: 76yo F s/p Pericardial window for Cardiac tamponade, POD #5 -Both chest tube pulled 12/23 -Heart healthy diet -Pain control prn -Encourage OOB to chair, Incentive Spirometer -Cont current care -Monitor breathing pattern/vitals/dressing -Transfer to Tele Further recs discuss with Dr. Germania Guerrero, PGY1
[2016-12-24 05:45] LABS: BASO % 0.4 % (0.0-2.0); EOS # 0.1 K/uL (0.0-0.7); HEMATOCRIT 38.6 % (34.0-47.0); LYMPH # 0.5 K/uL (1.0-4.3); LYMPH % 4.8 % (20.0-40.0); MEAN CELL VOLUME 85.9 fl (81.0-99.0); MEAN CORPUSCULAR HEMOGLOBIN 28.2 pg (27.0-31.0); MEAN CORPUSCULAR HGB CONC 32.9 g/dL (33.0-37.0); MEAN PLATELET VOLUME 7.8 fl (7.2-11.7); MONO % 8.7 % (0.0-10.0); NEUT # 9.6 K/uL (1.8-7.0); NEUT % 85.1 % (50.0-75.0); RED CELL DISTRIBUTION WIDTH 14.6 % (11.5-14.5); WHITE BLOOD COUNT 11.3 K/uL (4.8-10.8)
[2016-12-24 05:55] LABS: ALB/GLOB RATIO 1.1 (1.0-2.1); ALKALINE PHOSPHATASE 69 U/L (38-126); ALT/SGPT 32 U/L (9-52); AST/SGOT 31 U/L (14-36); BILIRUBIN,TOTAL 1.7 mg/dl (0.2-1.3); BLOOD UREA NITROGEN 19 mg/dl (7-17); CALCIUM 8.8 mg/dL (8.4-10.2); CARBON DIOXIDE 28 mmol/L (22-30); CHLORIDE 104 mmol/L (98-107); GFR AFRICAN-AMERICAN > 60; GLUCOSE,RANDOM 95 mg/dL (65-105); POTASSIUM 3.9 MMOL/L (3.6-5.0); SODIUM 142 mmol/l (132-148); TOTAL PROTEIN 5.8 G/DL (6.3-8.2)
[2016-12-24] MEDS: Bacitracin OINT 15GM TOP SCH (08:18)
[2016-12-24] MEDS: Enoxaparin 60 mg Syringe SC SCH ×2 (08:20→22:00)
--- NOTE | 2016-12-24 10:51 | RAD ---
HISTORY: s/p chest tube pull comparison COMPARISON: Comparison chest dated 12/23/2016. FINDINGS: LUNGS: Bibasilar atelectasis and or infiltrates is bilateral effusions again noted. PLEURA: As above. No definitive Pneumothorax apparent. CARDIOVASCULAR: Multiple metallic clips are again seen overlying the right upper abdomen and right lower cardiac silhouette. Heart remains mildly enlarged. OSSEOUS STRUCTURES: Degenerative changes both shoulder girdles VISUALIZED UPPER ABDOMEN: Normal. OTHER FINDINGS: None. IMPRESSION: Bibasilar atelectasis and or infiltrates is bilateral effusions again noted. Metallic clips again seen overlying the right upper abdomen/right lower cardiac silhouette presumably secondary to recent pericardial window Cardiomegaly.
--- NOTE | 2016-12-24 12:05 | PN ---
DATE: 12/24/2016 LOCATION: The patient in ICU, bed 432. TIME SPENT: 35 minutes. HISTORY OF PRESENT ILLNESS: The patient is seen and evaluated at the bedside. Events since admissio n reviewed. Past medical, surgical and social history reviewed. A 76-year-old female admitted with s hortness of breath, cardiac tamponade, status post pericardial window, postop day 5. Overnight, both chest tubes were removed. Post-removal chest x-ray showed no pneumothorax, residual pleural effusion with atelectasis more on the right than left, telemetry atrial fibrillation, rate controlled, remain ed normotensive. This morning, alert, awake, follows commands, appropriate, less disoriented, out of bed to chair. Denies headache, shortness of breath, palpitation, chest pain. No abdominal pain or diarrhea, dysuria. PHYSICAL EXAMINATION: VITAL SIGNS: T-max 98.7, heart rate 77-78, blood pressure 127/79, mean arterial pressure 95, respira tory rate 24, oxygen saturation 93%. Intake 200, output 1950, negative balance 1750. HEENT: Pupils reactive. Sclerae are anicteric. Conjunctivae are pink. NECK: Supple. Trachea central. CHEST: No rhonchi. No subcutaneous crepitus. HEART: Rhythm irregular. ABDOMEN: Bowel sounds present, soft. EXTREMITIES: No edema. NEUROLOGIC: Nonfocal. Oriented to name, place and time. Affect appropriate. CURRENT MEDICATIONS: Include DuoNeb 3 mL via nebulizer q. 6 hours p.r.n., Lipitor 80 mg p.o. at bedt [place], Lovenox 60 subQ q. 12 hours, Haldol 5 mg IV q. 6 hours p.r.n., Lopressor 50 mg p.o. q. 12 hours , nystatin powder 1 application topically 3 times daily, Zofran 4 mg IV q. 6 hours p.r.n. LABORATORY DATA: WBC 11.3, hemoglobin 12.7, hematocrit 38.6, platelet count at 233. PT 13.9, INR 1. 2, PTT 36.6. SMA-7: Sodium 142, potassium 3.9, chloride 104, CO2 28, blood urea nitrogen 19, creati nine 0.6, total bilirubin 1.7, AST 31, ALT 32, alkaline phosphatase 69, total protein 5.8, albumin 3. Pericardial fluid: WBC 3485, fluid RBC 475,200, total cell count 100, neutrophils 2, lymphocytes 28. DAISY screen negative. DAISY titer . Antiparietal cell antibody less than 20, thyroid peroxidase 22. Complement C3-C4: C3 of 19, C4 of 23. Blood culture: No growth reported. Wound culture: No g rowth reported. Chest x-ray: Bibasilar effusion, more on right than the left, with adjacent atelecta sis. IMPRESSION: 1. Neurologic: Remains alert, awake, less disorientation now, less agitation. 2. Pulmonary: Bilateral pleural effusion, mild, with residual atelectasis. 3. Cardiac: Atrial fibrillation, paroxysmal, now in sinus rhythm. 4. Hypertension: Controlled on metoprolol 50 mg q. 12 hours. 5. Pericardial effusion: Status post pericardial window, resolved. Chest tube was discontinued. Re peat chest x-ray: Minimal effusion bilaterally with atelectasis, more on the right than left. 6. Chronic obstructive pulmonary disease: On DuoNeb q. 6 hours p.r.n. 7. Lung nodule adjacent to the pericardium: Needs further evaluation. 8. Hypokalemia: Resolved. 9. Continue Lovenox, therapeutic, for paroxysmal atrial fibrillation/atrial flutter. 10. I appreciate cardiology followup and recommendation. Monty Drake MD cc: [id number] TT: 12/24/2016 12:04:19 Confirmation # [id number] Dictation # [id number] ln
--- NOTE | 2016-12-24 17:24 | PN ---
DATE: 12/24/2016 The patient is confused. Denies chest pain. She is currently in sinus rhythm. PHYSICAL EXAMINATION: VITAL SIGNS: Blood pressure 116/62, heart rate 67, temperature 98, respiration 24. HEENT: Normocephalic. NECK: No JVD. CHEST: Clear. HEART: S1, S2 regular. EXTREMITIES: No edema. LABORATORIES: CBC: WBC 11.2, hemoglobin 12.7, hematocrit 38.6, platelet count 233,000. Today's SMA -7 was within normal limits except for BUN of 19 and creatinine 0.6. ASSESSMENT: 1. Paroxysmal atrial fibrillation and atrial flutter. 2. Status post pericardial window for pericardial effusion and pericardial tamponade. 3. Altered mental status. RECOMMENDATIONS: Continue Lipitor at 80 mg once a day, Lovenox 60 mg subcutaneous twice a day, Lopre ssor 50 mg once a day. Obtain head CT scan without contrast. In the meantime, the patient will be t ransferred to telemetry. I did review the x-ray performed today which revealed a right lower lobe in filtrate. Thor Still MD cc: [id number] TT: 12/24/2016 17:23:57 Confirmation # [id number] Dictation # [id number] teetee
--- NOTE | 2016-12-24 21:26 | CT ---
EXAM: CT Head Without Intravenous Contrast CLINICAL HISTORY: 76 years old, female; Signs and symptoms; Other: AMS TECHNIQUE: Axial computed tomography images of the head/brain without intravenous contrast. This CT exam was performed using one or more of the following dose reduction techniques: automated exposure control, adjustment of the mA and/or kV according to patient size, and/or use of iterative reconstruction technique. Coronal and sagittal reformatted images were created and reviewed. EXAM DATE/TIME: 12/24/2016 4:59 PM COMPARISON: No relevant prior studies available. FINDINGS: BRAIN: Areas of low density in the periventricular white matter bilaterally, most likely representing mild chronic small vessel ischemic changes. Physiologic basal ganglia calcification. Diffuse, age-related cortical atrophy and ventriculomegaly. No significant acute abnormality identified. No acute hemorrhage seen within the brain. No acute extra-axial fluid collections visualized. No evidence of significant mass effect within the brain. No CT findings to suggest an acute, large territorial infarct, however, small or early acute infarcts may not be visible on CT. VENTRICLES: See above. BONES/JOINTS: No acute fractures or other acute bony abnormality noted. SOFT TISSUES: No acute abnormality of the visualized soft tissues is seen. VASCULATURE: Atherosclerotic calcification. SINUSES: Visualized paranasal sinuses appear clear, except for a mucous retention cyst in the right maxillary sinus. MASTOID AIR CELLS: Minimal fluid in the right mastoid air cells, compatible with minimal right mastoiditis. Most of the right mastoid air cells appear clear, however. IMPRESSION: - No acute findings seen within the brain. - See above for remaining findings.
--- NOTE | 2016-12-24 22:38 | PN ---
DATE: 12/24/2016 SUBJECTIVE: The patient is seen today, 12/24/2016. PHYSICAL EXAMINATION: VITAL SIGNS: She is on sinus rhythm with heart rate , temperature 97.7, respiratory rate 20. HEENT: Pupils equal, reactive to light. Normal-appearing mucosa of the conjunctivae, oropharyngeal and nasal membrane mucosa. NECK: Supple. No JVD, no carotid bruit, no lymph node, no thyromegaly. CHEST AND LUNGS: Bilateral symmetrical expansion, good air exchange, rhonchi. CARDIOVASCULAR: S1, S2. No additional sounds. ABDOMEN: Normoactive bowel sounds, no tenderness, no organomegaly, no masses. EXTREMITIES: No cyanosis, no clubbing, no edema. CENTRAL NERVOUS SYSTEM: Alert, awake, oriented x 1. No neurological deficits could be appreciated. ASSESSMENT: 1. Status post cardiac . 2. Status post pericardial endo. 3. paroxysmal atrial fibrillation. 4. Chronic obstructive pulmonary disease. 5. Smoker. PLAN: Continue current medications and transfer to telemetry bed and will start anticoagulation when cleared by cardiothoracic surgery. Herlinda Hopson MD cc: [id number] TT: 12/24/2016 22:38:30 Confirmation # [id number] Dictation # [id number] mn
--- NOTE | 2016-12-25 07:34 | CP.CCUPN ---
CCU Subjective - Physician Review Events Since Last Encounter (Free Text): 12/25/16 14:03 The Patient was seen and examined at the bedside with the ICU team. Management issues were discussed and formulated. 76 Y/O F with PMHx of HTN who intialy presents to the ED on 12/18 with complaint of worsening shortness of breath and productive cough with white sputum. In the ER Patient was found to be in A-Fib with RVR, Initially admitted to telemetry, Echo was done showing Pericardial effusion with cardiac tamponade. Thoracic surgery consulted S/P evacuation of pericardial effusion, she currently hemodynamically stable, Chest tubes removed 12/23 Lethargic in AM, Currently she AAO x3 No CP, less SOB No fever/chills CCU Objective - Vital Signs / Intake & Output Intake and Output (Last 8hrs): Intake & Output 12/24/16 12/25/16 12/25/16 22:59 06:59 14:59 Intake Total 60 Output Total 200 Balance -140 Intake: IV 10 Oral 50 Output: Urine 200 Urine, Voided 200 - Physical Exam Head: Positive for: Atraumatic, Normocephalic. Negative for: Tenderness, Contusion, Swelling, Ecchymosis Pupils: Positive for: PERRL. Negative for: Sluggish, Non-Reactive, Pinpoint Extroacular Muscles: Positive for: EOMI. Negative for: Gaze Palsy, Entrapment Conjunctiva: Positive for: Normal. Negative for: Injected, Icteric Ears: Positive for: Normal Mouth: Positive for: Moist Mucous Membranes. Negative for: Dry, Drooling Pharnyx: Positive for: Normal. Negative for: ERYTHEMA Nose (Internal): Positive for: Normal Inspection, No Active Bleeding Neck: Positive for: Normal Range of Motion, Trachea Midline. Negative for: Meningeal Signs, MIDLINE TENDERNESS, Paraspinal Tenderness, JVD, Lymphadenopathy , Bruit, Other Respiratory/Chest: Positive for: Good Air Exchange, Tachypneic, Other (Chest tubes intact). Negative for: Respiratory Distress, Accessory Muscle Use, Wheezes, Decreased Breath Sounds, Rales, Rhonchi Cardiovascular: Positive for: Irregular Rhythm, Peripheal Pulses Present, Tachycardic, Bradycardic. Negative for: Murmurs Abdomen: Positive for: Normal Bowel Sounds. Negative for: Tenderness, Distention, Peritoneal Signs Lower Extremity: Negative for: Edema, CALF TENDERNESS, Erythema Neurological: Positive for: GCS=15, CN II-XII Intact, Speech Normal, Motor Func Grossly Intact, Normal Sensory Function Psychiatric: Positive for: Alert, Oriented x 3, Normal Insight, Normal Concentration, Normal Affect, Normal Mood - Medications Active Medications: Active Medications Generic Name Dose Route Start Last Admin Trade Name Freq PRN Reason Stop Dose Admin Albuterol/Ipratropium 3 ml 12/23/16 15:28 12/24/16 04:02 Duoneb 3 Mg/0.5 Mg (3 Ml) Ud INH 3 ml RQ6 PRN Administration Shortness of Breath Atorvastatin Calcium 80 mg 12/18/16 22:00 12/24/16 21:03 Lipitor PO 80 mg HS WING Administration Bacitracin 1 applic 12/22/16 09:45 12/24/16 08:18 Bacitracin Oint TOP 1 applic DAILY WING Administration Enoxaparin Sodium 60 mg 12/23/16 21:00 12/24/16 22:00 Lovenox SC 60 mg Q12 WING Administration Protocol Haloperidol Lactate 5 mg 12/22/16 09:41 12/25/16 02:29 Haldol IM 5 mg Q6 PRN Administration Agitation Metoprolol Tartrate 50 mg 12/23/16 10:45 12/24/16 20:55 Lopressor PO 50 mg Q12 WING Administration Nystatin 1 applic 12/20/16 13:00 12/24/16 16:10 Nystop Topical Powder TOP 1 applic TID WING Administration Ondansetron HCl 4 mg 12/19/16 21:03 12/20/16 05:00 Zofran Inj IVP 4 mg Q6 PRN Administration Nausea/Vomiting - Patient Studies Lab Studies: Microbiology Studies 12/20/16 Unknown Gram Stain - Final Other: Please Indicate Wound Culture - Preliminary No growth. Mycobacterial Culture - Preliminary Critical Care Progress Note - Nutrition Nutrition: Nutrition Category Date Time Status Heart Healthy Diet [DIET] Diets 12/21/16 Breakfast Active Assessment/Plan (1) Pericardial effusion with cardiac tamponade Current Visit: Yes Status: Acute (2) Atrial fibrillation with RVR Current Visit: Yes Status: Acute (3) Hypokalemia Current Visit: Yes Status: Acute (4) Delirium Current Visit: Yes Status: Acute - Assessment and Plan (Free Text) Assessment: Continue current medications, reviewed IV Hydrations, HR controlled with metoprolol Pain control ONDANSETRON PRN BD NEBS Q 4H PRN SCD, Lovenox
--- NOTE | 2016-12-25 08:20 | PN ---
DATE: 12/22/2016 SUBJECTIVE: The patient was seen today 12/22/2016. She is lethargic as she was given Ativan due to her agitation. PHYSICAL EXAMINATION: VITAL SIGNS: Blood pressure is 110/70, heart rate is 88 and temperature 98.1 and respiratory rate 19 . HEENT: Pupils equal and reactive to light. Normal-appearing mucosa of the conjunctivae, oropharynx and nasal membrane mucosa. NECK: Supple, no JVD, no carotid bruit, no lymph nodes and no thyromegaly. CHEST AND LUNGS: Bilateral symmetrical expansion. The patient has pericardial window. Would was elbert an. CARDIOVASCULAR: PMI not localized. S1, S2. No additional sounds. ABDOMEN: Normoactive bowel sounds, no tenderness, no organomegaly and no masses. EXTREMITIES: No cyanosis, no clubbing and no edema. CENTRAL NERVOUS SYSTEM: The patient is lethargic at the time of this examination after she was given Haldol. ASSESSMENT: 1. Status post cardiac tamponade with pericardial window done. 2. Suspicion of mass adjacent to the pericardium in the CAT scan of the chest and lung nodule. 3. Paroxysmal atrial fibrillation. 4. Smoker. PLAN: Continue current medications. I discussed the patient's condition with Dr. Still. Anticoag ulant is being held as the patient has hemorrhagic pericardial effusion. Herlinda Hopson MD cc: [phone] TT: 12/22/2016 23:11:48 Confirmation # [id number] Dictation # [id number]
[2016-12-25] MEDS: Bacitracin OINT 15GM TOP SCH (08:51)
[2016-12-25] MEDS: Enoxaparin 60 mg Syringe SC SCH ×2 (08:52→21:35)
--- NOTE | 2016-12-25 10:57 | CP.PCM.PN ---
Subjective - Date & Time of Evaluation Date of Evaluation: 12/25/16 Time of Evaluation: 10:54 - Subjective Subjective: Thoracic Surgery - Dr. Solo Pt S&E. NAEO. Pt lethargic this morning, remains confused and in ICU. No complaints of pain or SOB. Dressings changed with bacitracin, are C/D/I. Objective - Vital Signs/Intake and Output Vital Signs (last 24 hours): Temp Pulse Resp BP Pulse Ox 97.7 F 77 15 120/64 96 12/25/16 07:50 12/25/16 08:53 12/25/16 07:50 12/25/16 08:53 12/25/16 07:50 Intake and Output: 12/25/16 12/25/16 06:59 18:59 Intake Total 70 Balance 70 - Medications Medications: Current Medications Albuterol/Ipratropium (Duoneb 3 Mg/0.5 Mg (3 Ml) Ud) 3 ml INH RQ6 PRN PRN Reason: Shortness of Breath Last Admin: 12/24/16 04:02 Dose: 3 ml Atorvastatin Calcium (Lipitor) 80 mg PO HS [facility] Last Admin: 12/24/16 21:03 Dose: 80 mg Bacitracin (Bacitracin Oint) 1 applic TOP DAILY [facility] Last Admin: 12/25/16 08:51 Dose: 1 applic Enoxaparin Sodium (Lovenox) 60 mg SC Q12 WING PRN Reason: Protocol Last Admin: 12/25/16 08:52 Dose: 60 mg Haloperidol Lactate (Haldol) 5 mg IM Q6 PRN PRN Reason: Agitation Last Admin: 12/25/16 02:29 Dose: 5 mg Metoprolol Tartrate (Lopressor) 50 mg PO Q12 [facility] Last Admin: 12/25/16 08:53 Dose: 50 mg Nystatin (Nystop Topical Powder) 1 applic TOP TID [facility] Last Admin: 12/25/16 08:53 Dose: 1 applic Ondansetron HCl (Zofran Inj) 4 mg IVP Q6 PRN PRN Reason: Nausea/Vomiting Last Admin: 12/20/16 05:00 Dose: 4 mg - Labs Labs: 12/25/16 10:20 12/24/16 05:00 PT 13.9 Seconds (9.8-13.1) H 12/18/16 20:10 INR 1.2 (0.9-1.2) 12/18/16 20:10 APTT 36.6 Seconds (25.6-37.1) 12/18/16 20:10 - Constitutional Appears: No Acute Distress - Head Exam Head Exam: ATRAUMATIC, NORMAL INSPECTION, NORMOCEPHALIC - Eye Exam Eye Exam: Normal appearance - Respiratory Exam Respiratory Exam: NORMAL BREATHING PATTERN. absent: Respiratory Distress Additional comments: Midline incision w/ barb and prior chest tube incisions with bacitracin and 4x4 dressing [address] - Neurological Exam Neurological Exam: Alert, Oriented x3 - Psychiatric Exam Psychiatric exam: Normal Affect, Normal Mood - Skin Skin Exam: Dry, Intact Assessment and Plan - Assessment and Plan (Free Text) Assessment: 76yo F s/p Pericardial window for Cardiac tamponade, POD #6 -CTs removed 12/23 -CXR stable -Encourage OOB to chair, Incentive Spirometer -Continue care a per medical teams -Dressing change daily with bacitracin -Clear for Transfer to [facility] Dr Germania Cheek PGY2
[2016-12-25 11:55] LABS: ALKALINE PHOSPHATASE 105 U/L (38-126); ALT/SGPT 38 U/L (9-52); AST/SGOT 50 U/L (14-36); BILIRUBIN,TOTAL 4.5 mg/dl (0.2-1.3); BLOOD UREA NITROGEN 23 mg/dl (7-17); CALCIUM 8.5 mg/dL (8.4-10.2); CARBON DIOXIDE 30 mmol/L (22-30); CHLORIDE 104 mmol/L (98-107); GFR AFRICAN-AMERICAN > 60; GLUCOSE,RANDOM 87 mg/dL (65-105); POTASSIUM 3.5 MMOL/L (3.6-5.0); SODIUM 141 mmol/l (132-148); TOTAL PROTEIN 5.4 G/DL (6.3-8.2)
--- NOTE | 2016-12-25 13:03 | CP.PCM.PN ---
Subjective - Date & Time of Evaluation Date of Evaluation: 12/25/16 Time of Evaluation: 13:02 - Subjective Subjective: pt s/e. vss. wbc-8k. Keep the wound open to air(no more dressing) Objective - Vital Signs/Intake and Output Vital Signs (last 24 hours): Temp Pulse Resp BP Pulse Ox 98.9 F 65 22 119/61 97 12/25/16 12:03 12/25/16 12:03 12/25/16 12:03 12/25/16 12:03 12/25/16 12:03 Intake and Output: 12/25/16 12/25/16 06:59 18:59 Intake Total 70 25 Output Total 25 Balance 70 0 - Medications Medications: Current Medications Albuterol/Ipratropium (Duoneb 3 Mg/0.5 Mg (3 Ml) Ud) 3 ml INH RQ6 PRN PRN Reason: Shortness of Breath Last Admin: 12/24/16 04:02 Dose: 3 ml Atorvastatin Calcium (Lipitor) 80 mg PO HS [facility] Last Admin: 12/24/16 21:03 Dose: 80 mg Bacitracin (Bacitracin Oint) 1 applic TOP DAILY [facility] Last Admin: 12/25/16 08:51 Dose: 1 applic Enoxaparin Sodium (Lovenox) 60 mg SC Q12 WING PRN Reason: Protocol Last Admin: 12/25/16 08:52 Dose: 60 mg Haloperidol Lactate (Haldol) 5 mg IM Q6 PRN PRN Reason: Agitation Last Admin: 12/25/16 02:29 Dose: 5 mg Metoprolol Tartrate (Lopressor) 50 mg PO Q12 [facility] Last Admin: 12/25/16 08:53 Dose: 50 mg Nystatin (Nystop Topical Powder) 1 applic TOP TID [facility] Last Admin: 12/25/16 12:04 Dose: 1 applic Ondansetron HCl (Zofran Inj) 4 mg IVP Q6 PRN PRN Reason: Nausea/Vomiting Last Admin: 12/20/16 05:00 Dose: 4 mg - Labs Labs: 12/25/16 10:20 12/25/16 10:20 PT 13.9 Seconds (9.8-13.1) H 12/18/16 20:10 INR 1.2 (0.9-1.2) 12/18/16 20:10 APTT 36.6 Seconds (25.6-37.1) 12/18/16 20:10
--- NOTE | 2016-12-25 17:19 | PN ---
DATE: 12/25/2016 FOLLOWUP SUBJECTIVE: The patient is paroxysmal atrial fibrillation. She is currently in sinus rhythm with fr equent APCs. She is confused at times. PHYSICAL EXAMINATION: VITAL SIGNS: Blood pressure 126/66, heart rate 65, temperature 97.5, respirations 22. HEENT: Normocephalic. CHEST: Bibasilar rhonchi. HEART: S1, S2 regular. EXTREMITIES: No edema. ASSESSMENT: 1. Paroxysmal atrial fibrillation. 2. Status post pericardial window for pericardial tamponade. 3. Chronic obstructive lung disease. RECOMMENDATIONS: Continue Lipitor at 80 mg once a day, Lopressor 50 mg once a day, therapeutic subcu taneous Lovenox 60 mg twice a day. Consider initiating Eliquis at 2.5 mg twice a day. Thor Still MD cc: [id number] TT: 12/25/2016 17:18:56 Confirmation # [id number] Dictation # [id number] jn
[2016-12-25] MEDS ORDERED: Sodium Chloride 0.9% 500 ML IV ONE (17:37)
--- NOTE | 2016-12-25 22:57 | PN ---
DATE: 12/25/2016 The patient is seen today on 12/25/2016. PHYSICAL EXAMINATION: VITAL SIGNS: She is in paroxysmal atrial fibrillation with heart rate currently controlled to 70-80, blood pressure 119/61, temperature 98.9, respiratory rate 22. HEENT: Pupils equal, reactive to light. Normal-appearing mucosa of the conjunctivae, oropharyngeal, and nasal membrane mucosa. NECK: Supple. No JVD. No carotid bruit. No lymph node. No thyromegaly. CHEST AND LUNGS: Bilateral symmetrical expansion. Good air exchange. No rales. NO rhonchi. CARDIOVASCULAR: PMI not localized. S1, S2. No additional sounds. ABDOMEN: Normoactive bowel sounds, no tenderness, no organomegaly, no masses. EXTREMITIES: No cyanosis, no clubbing, no edema. CENTRAL NERVOUS SYSTEM: Alert, awake, oriented x 1. No neurological deficits could be appreciated. ASSESSMENT: 1. Status post cardiac tamponade and cardiac window. 2. Paroxysmal atrial fibrillation. PLAN: Continue current medications and anticoagulant, Lovenox 60 mg q. 12 hours. [facility] Yas Hopson MD cc: [phone] TT: 12/25/2016 22:56:46 Confirmation # [id number] Dictation # [id number] mn
[2016-12-26] MEDS: Enoxaparin 60 mg Syringe SC SCH ×2 (08:23→20:01)
[2016-12-26] MEDS: Bacitracin OINT 15GM TOP SCH (08:27)
--- NOTE | 2016-12-26 11:39 | PN ---
DATE: 12/26/2016 LOCATION: The patient is in ICU, bed 432. TIME SPENT: 25 minutes. The patient is seen and evaluated at the bedside. Events since admission reviewed. Past medical, surgical and social history reviewed. A 76-year-old female admitted with shortness of breath, cardiac tamponade, status post pericardial wi ndow, postop day #7. Both chest tubes removed. Overnight, normotensive, afebrile. Telemetry, atria l fibrillation. Noted to be confused, moreso at night. On no sedative medications. This morning, a lert, awake, out of bed to chair, less disoriented. Tolerating p.o. feeds. Complaining of no new sy mptoms. No headache, shortness of breath, chest pain or palpitation. Occasional dry cough noted. PHYSICAL EXAMINATION: VITAL SIGNS: Temperature 97.5, heart rate 63, irregular, blood pressure 145/82, mean arterial pressu re 103, respiratory rate 27, saturating 94% oxygen 3 liters nasal cannula. Intake 660, output 375, p ositive balance 285. HEENT: Pupils reactive. Conjunctivae pink. Sclerae white. NECK: Supple. Trachea central. CHEST: Bilateral breath sounds. No subcutaneous crepitus. Expiration prolonged. HEART: Rhythm irregular. ABDOMEN: Bowel sounds present, soft. EXTREMITIES: No edema. NEUROLOGIC: Nonfocal, oriented to name, place and time. Affect appropriate. CURRENT MEDICATIONS: DuoNeb 3 mL via nebulizer q. 6 hours p.r.n., Lipitor 80 mg p.o. at bedtime, Smita enox 60 subQ q. 12, Haldol 5 mg IV q. 6 p.r.n., Lopressor 50 mg q. 12, nystatin powder 1 application topically 3 times daily, Zofran 4 mg IV q. 6 p.r.n. LABORATORY DATA: WBC 11.3, hemoglobin 12.7, hematocrit 38.6, platelet count 233, neutrophils 85, lym phocytes 4.8, monocytes 8.7. SMA-7: Sodium 141, potassium 3.5, chloride 104, CO2 30, blood urea nit rogen 23, creatinine 0.6, glucose 87, total bilirubin 4.5, AST 50, ALT 38, alkaline phosphatase 105, total protein 5.4, albumin 2.7. Microbiology: MRSA nasal smear negative. Pericardial fluid, no eliezer erobes isolated. Wound culture, no growth, mycobacteria, no acid fast bacilli noted. IMPRESSION: 1. Neurologic. Remains alert, awake, less disoriented now. Less agitation, on Haldol p.r.n. Avoid benzodiazepines or similar sedative medications. 2. Pulmonary. Bilateral pleural effusion with residual atelectasis, stable. 3. Cardiac. Pericardial tamponade, status post pericardial window. Chest tubes removed, remains st able. Atrial fibrillation, paroxysmal. Now in sinus rhythm. On heparin, Lovenox q. 12. Appreciate cardiology followup. 4. Chronic obstructive pulmonary disease. On DuoNeb q. 6 hours p.r.n. Lung fabi adjacent to the p ericardium requiring further evaluation when more stable. 5. Hypokalemia, resolved. Monty Drake MD cc: [id number] TT: 12/26/2016 11:38:57 Confirmation # [id number] Dictation # [id number] ramon
--- NOTE | 2016-12-26 11:51 | CP.PCM.PN ---
Subjective - Date & Time of Evaluation Date of Evaluation: 12/26/16 Time of Evaluation: 06:25 - Subjective Subjective: Pt s/t at bedside this AM in the ICU. Patient's mental status has improved and she is awake, alert, and more verbal interactive and responding appropriately. Denies any chest pain or SOB Objective - Vital Signs/Intake and Output Vital Signs (last 24 hours): Temp Pulse Resp BP Pulse Ox 97.5 F L 60 29 H 140/66 100 12/26/16 08:09 12/26/16 11:00 12/26/16 11:00 12/26/16 11:00 12/26/16 11:00 Intake and Output: 12/26/16 12/26/16 06:59 18:59 Intake Total 260 50 Output Total 300 Balance -40 50 - Medications Medications: Current Medications Albuterol/Ipratropium (Duoneb 3 Mg/0.5 Mg (3 Ml) Ud) 3 ml INH RQ6 PRN PRN Reason: Shortness of Breath Last Admin: 12/24/16 04:02 Dose: 3 ml Atorvastatin Calcium (Lipitor) 80 mg PO HS [facility] Last Admin: 12/25/16 21:27 Dose: 80 mg Bacitracin (Bacitracin Oint) 1 applic TOP DAILY [facility] Last Admin: 12/26/16 08:27 Dose: 1 applic Enoxaparin Sodium (Lovenox) 60 mg SC Q12 WING PRN Reason: Protocol Last Admin: 12/26/16 08:23 Dose: 60 mg Haloperidol Lactate (Haldol) 5 mg IM Q6 PRN PRN Reason: Agitation Last Admin: 12/25/16 02:29 Dose: 5 mg Metoprolol Tartrate (Lopressor) 50 mg PO Q12 [facility]ING Last Admin: 12/26/16 08:22 Dose: 50 mg Nystatin (Nystop Topical Powder) 1 applic TOP TID [facility] Last Admin: 12/26/16 08:27 Dose: 1 applic Ondansetron HCl (Zofran Inj) 4 mg IVP Q6 PRN PRN Reason: Nausea/Vomiting Last Admin: 12/20/16 05:00 Dose: 4 mg - Labs Labs: 12/25/16 10:20 12/25/16 10:20 PT 13.9 Seconds (9.8-13.1) H 12/18/16 20:10 INR 1.2 (0.9-1.2) 12/18/16 20:10 APTT 36.6 Seconds (25.6-37.1) 12/18/16 20:10
--- NOTE | 2016-12-26 14:47 | PN ---
DATE: 12/26/2016 The patient denies chest pain. She is confused to place. PHYSICAL EXAMINATION: VITAL SIGNS: Blood pressure 119/87, heart rate 61, temperature 97.9, respirations 16. HEENT: Normocephalic. CHEST: Bilateral rhonchi. HEART: S1, S2 regular. EXTREMITIES: No edema. ASSESSMENT: 1. Status post pericardial window for pericardial effusion and tamponade. 2. Hypokalemia. 3. Paroxysmal atrial fibrillation. RECOMMENDATIONS: Continue albuterol inhaler, Lipitor at 80 mg once a day, Lopressor 50 mg twice a da y, Lovenox at 60 mg subcutaneous twice a day. Obtain BMP and CBC in the a.m. Thor Still MD cc: [id number] TT: 12/26/2016 14:46:22 Confirmation # [id number] Dictation # [id number] mn
--- NOTE | 2016-12-26 15:28 | CP.PCM.PN ---
Subjective - Date & Time of Evaluation Date of Evaluation: 12/26/16 Time of Evaluation: 15:26 - Subjective Subjective: pt s/e. wbc-11k wound dry. a/p: satisfactory daily cbc snd cxr Objective - Vital Signs/Intake and Output Vital Signs (last 24 hours): Temp Pulse Resp BP Pulse Ox 97.9 F 64 26 H 121/74 100 12/26/16 12:27 12/26/16 15:00 12/26/16 15:00 12/26/16 15:00 12/26/16 15:00 Intake and Output: 12/26/16 12/26/16 06:59 18:59 Intake Total 260 290 Output Total 300 100 Balance -40 190 - Medications Medications: Current Medications Albuterol/Ipratropium (Duoneb 3 Mg/0.5 Mg (3 Ml) Ud) 3 ml INH RQ6 PRN PRN Reason: Shortness of Breath Last Admin: 12/24/16 04:02 Dose: 3 ml Atorvastatin Calcium (Lipitor) 80 mg PO HS [facility] Last Admin: 12/25/16 21:27 Dose: 80 mg Bacitracin (Bacitracin Oint) 1 applic TOP DAILY [facility] Last Admin: 12/26/16 08:27 Dose: 1 applic Enoxaparin Sodium (Lovenox) 60 mg SC Q12 WING PRN Reason: Protocol Last Admin: 12/26/16 08:23 Dose: 60 mg Haloperidol Lactate (Haldol) 5 mg IM Q6 PRN PRN Reason: Agitation Last Admin: 12/25/16 02:29 Dose: 5 mg Metoprolol Tartrate (Lopressor) 50 mg PO Q12 [facility] Last Admin: 12/26/16 08:22 Dose: 50 mg Nystatin (Nystop Topical Powder) 1 applic TOP TID [facility] Last Admin: 12/26/16 12:34 Dose: 1 applic Ondansetron HCl (Zofran Inj) 4 mg IVP Q6 PRN PRN Reason: Nausea/Vomiting Last Admin: 12/20/16 05:00 Dose: 4 mg - Labs Labs: 12/25/16 10:20 12/25/16 10:20 PT 13.9 Seconds (9.8-13.1) H 12/18/16 20:10 INR 1.2 (0.9-1.2) 12/18/16 20:10 APTT 36.6 Seconds (25.6-37.1) 12/18/16 20:10
--- NOTE | 2016-12-26 22:16 | PN ---
DATE: 12/26/2016 SUBJECTIVE: The patient is seen today 12/26/2016. She is not in any cardiopulmonary distress. PHYSICAL EXAMINATION: VITAL SIGNS: Blood pressure 137/61, temperature 97.8, respiratory rate 20, and pulse 67. HEENT: Pupils equal, reactive to light. Normal-appearing mucosa of the conjunctivae, oropharyngeal and nasal membrane mucosa. NECK: Supple, no JVD, no carotid bruit, no lymph node, no thyromegaly. CHEST AND LUNGS: Bilateral symmetrical expansion, good air exchange, no rales, no rhonchi. CARDIOVASCULAR: PMI not localized. S1, S2. No additional sounds. ABDOMEN: Normoactive bowel sounds, no tenderness, no organomegaly, no masses. EXTREMITIES: No cyanosis, no clubbing, no edema. CENTRAL NERVOUS SYSTEM: Alert, awake, oriented x 2. No neurological deficits could be appreciated. ASSESSMENT: 1. Status post cardiac tamponade, pericardial window. 2. Paroxysmal atrial fibrillation. PLAN: Continue current anticoagulant and physical therapy and transfer the patient to [facility] for rehabilitation. I discussed with the patient's son over the phone as per patient's requ est. [facility] Yas Hopson MD cc: [phone] TT: 12/26/2016 22:15:17 Confirmation # [id number] Dictation # [id number] teetee
[2016-12-27 05:29] LABS: MEAN CELL VOLUME 85.4 fl (81.0-99.0); MEAN CORPUSCULAR HEMOGLOBIN 27.9 pg (27.0-31.0); MEAN CORPUSCULAR HGB CONC 32.6 g/dL (33.0-37.0); RED CELL DISTRIBUTION WIDTH 15.1 % (11.5-14.5); WHITE BLOOD COUNT 9.3 K/uL (4.8-10.8)
[2016-12-27 05:40] LABS: ALKALINE PHOSPHATASE 258 U/L (38-126); ALT/SGPT 61 U/L (9-52); AST/SGOT 72 U/L (14-36); BILIRUBIN,TOTAL 2.6 mg/dl (0.2-1.3); BLOOD UREA NITROGEN 19 mg/dl (7-17); CALCIUM 8.6 mg/dL (8.4-10.2); CARBON DIOXIDE 30 mmol/L (22-30); CHLORIDE 104 mmol/L (98-107); GFR AFRICAN-AMERICAN > 60; GLUCOSE,RANDOM 92 mg/dL (65-105); POTASSIUM 3.5 MMOL/L (3.6-5.0); SODIUM 141 mmol/l (132-148); TOTAL PROTEIN 5.3 G/DL (6.3-8.2)
[2016-12-27] MEDS ORDERED: Potassium Chloride 20 mEq ER Tab PO ONE (07:48)
--- NOTE | 2016-12-27 07:52 | CP.PCM.PN ---
Subjective - Date & Time of Evaluation Date of Evaluation: 12/27/16 Time of Evaluation: 07:50 - Subjective Subjective: Thoracic Surgery - Dr. Solo Pt S&E. DREW. Pt denies any complaints. Incision C/D/I with barb. Objective - Vital Signs/Intake and Output Vital Signs (last 24 hours): Temp Pulse Resp BP Pulse Ox 98.2 F 81 22 120/63 98 12/27/16 07:48 12/27/16 07:48 12/27/16 07:48 12/27/16 07:48 12/27/16 07:48 Intake and Output: 12/27/16 12/27/16 06:59 18:59 Intake Total 70 Output Total 200 Balance -130 - Medications Medications: Current Medications Albuterol/Ipratropium (Duoneb 3 Mg/0.5 Mg (3 Ml) Ud) 3 ml INH RQ6 PRN PRN Reason: Shortness of Breath Last Admin: 12/24/16 04:02 Dose: 3 ml Bacitracin (Bacitracin Oint) 1 applic TOP DAILY [facility] Last Admin: 12/26/16 08:27 Dose: 1 applic Haloperidol Lactate (Haldol) 5 mg IM Q6 PRN PRN Reason: Agitation Last Admin: 12/25/16 02:29 Dose: 5 mg Metoprolol Tartrate (Lopressor) 50 mg PO Q12 [facility] Last Admin: 12/26/16 20:01 Dose: 50 mg Nystatin (Nystop Topical Powder) 1 applic TOP TID [facility] Last Admin: 12/26/16 16:25 Dose: 1 applic Ondansetron HCl (Zofran Inj) 4 mg IVP Q6 PRN PRN Reason: Nausea/Vomiting Last Admin: 12/20/16 05:00 Dose: 4 mg Potassium Chloride (K-Dur 20 Meq Er Tab) 40 meq PO ONCE ONE Stop: 12/27/16 07:49 - Labs Labs: 12/27/16 04:30 12/27/16 04:30 PT 13.9 Seconds (9.8-13.1) H 12/18/16 20:10 INR 1.2 (0.9-1.2) 12/18/16 20:10 APTT 36.6 Seconds (25.6-37.1) 12/18/16 20:10 - Constitutional Appears: No Acute Distress - Head Exam Head Exam: ATRAUMATIC, NORMAL INSPECTION, NORMOCEPHALIC - Eye Exam Eye Exam: Normal appearance - Respiratory Exam Respiratory Exam: NORMAL BREATHING PATTERN. absent: Respiratory Distress - GI/Abdominal Exam GI & Abdominal Exam: Soft. absent: Distended, Tenderness - Neurological Exam Neurological Exam: Alert, Awake. absent: Oriented x3 - Skin Skin Exam: Dry, Intact Assessment and Plan - Assessment and Plan (Free Text) Assessment: 76 yo F s/p Pericardial Window, s/p chest tube removal -Continue care as per medical teams -Transfer out of ICU -Continue PT/Rehab -F/U abd u/S which was ordered for elevated LFTs, consider GI consult -No further surgical plans Dw Dr. Germania Cheek PGY2
[2016-12-27] MEDS: Bacitracin OINT 15GM TOP SCH (08:33)
--- NOTE | 2016-12-27 13:33 | PN ---
DATE: 12/27/2016 SUBJECTIVE: The patient is confused. She is currently in rapid atrial fibrillation. PHYSICAL EXAMINATION: VITAL SIGNS: Blood pressure 116/70, heart rate 120, temperature 98.2, respirations 28. HEENT: Normocephalic. CHEST: Clear. HEART: S1, S2 regular. EXTREMITIES: No edema. LABORATORIES: Hemoglobin and hematocrit 12.4 and 38. White count and platelet count are within norm al limits. Today's potassium is 3.5. BUN and creatinine are 19 and 0.6. Total bilirubin is slightl y elevated at 2.6. Alkaline phosphatase is elevated at 258. ASSESSMENT: 1. Paroxysmal atrial fibrillation. 2. Status post pericardial window for pericardial tamponade. 3. Altered mental status. 4. Hypokalemia. RECOMMENDATIONS: The patient did receive K-Dur 20 mEq orally today. Continue Lopressor at 50 mg twi ce a day. Start Cardizem 30 mg q. 8 hours. GI consult has been requested for elevated liver enzymes . Lovenox was discontinued. Thor Still MD cc: [id number] TT: 12/27/2016 13:33:15 Confirmation # [id number] Dictation # [id number] ramon
--- NOTE | 2016-12-27 14:54 | CP.CCUPN ---
CCU Subjective - Physician Review Subjective (Free Text): Less agitation, has been OOB, no new tachyarrhythmias, denies any increase in wound pain, no COLLINS while taking short walks within ICU. CCU Objective - Vital Signs / Intake & Output Vital Signs (Last 4 hours): Vital Signs Temp Pulse Resp BP Pulse Ox 12/27/16 14:30 63 18 96/61 L 100 12/27/16 14:00 138 H 21 96/60 L 97 12/27/16 13:55 140 H 21 115/59 L 97 12/27/16 11:59 98.2 F 120 H 28 H 116/70 97 Intake and Output (Last 8hrs): Intake & Output 12/26/16 12/27/16 12/27/16 22:59 06:59 14:59 Intake Total 185 10 290 Output Total 250 100 Balance -65 -90 290 Weight 133 lb Intake: IV 10 10 Oral 175 290 Output: Urine 250 100 Urine, Voided 250 100 - Physical Exam Head: Positive for: Atraumatic, Normocephalic. Negative for: Tenderness, Contusion, Swelling, Ecchymosis Pupils: Positive for: PERRL. Negative for: Sluggish, Non-Reactive, Pinpoint Extroacular Muscles: Positive for: EOMI. Negative for: Gaze Palsy, Entrapment Conjunctiva: Positive for: Normal. Negative for: Injected, Icteric Ears: Positive for: Normal Mouth: Positive for: Moist Mucous Membranes. Negative for: Dry, Drooling Pharnyx: Positive for: Normal. Negative for: ERYTHEMA Nose (Internal): Positive for: Normal Inspection, No Active Bleeding Neck: Positive for: Normal Range of Motion, Trachea Midline. Negative for: Meningeal Signs, MIDLINE TENDERNESS, Paraspinal Tenderness, JVD, Lymphadenopathy , Bruit, Other Respiratory/Chest: Positive for: Good Air Exchange, Tachypneic, Other (Chest tubes intact). Negative for: Respiratory Distress, Accessory Muscle Use, Wheezes, Decreased Breath Sounds, Rales, Rhonchi Cardiovascular: Positive for: Irregular Rhythm, Peripheal Pulses Present, Tachycardic, Bradycardic. Negative for: Murmurs Abdomen: Positive for: Normal Bowel Sounds. Negative for: Tenderness, Distention, Peritoneal Signs Lower Extremity: Negative for: Edema, CALF TENDERNESS, Erythema Neurological: Positive for: GCS=15, CN II-XII Intact, Speech Normal, Motor Func Grossly Intact, Normal Sensory Function Psychiatric: Positive for: Alert, Oriented x 3, Normal Insight, Normal Concentration, Normal Affect, Normal Mood - Medications Active Medications: Active Medications Generic Name Dose Route Start Last Admin Trade Name Freq PRN Reason Stop Dose Admin Albuterol/Ipratropium 3 ml 12/23/16 15:28 12/24/16 04:02 Duoneb 3 Mg/0.5 Mg (3 Ml) Ud INH 3 ml RQ6 PRN Administration Shortness of Breath Bacitracin 1 applic 12/22/16 09:45 12/27/16 08:33 Bacitracin Oint TOP 1 applic DAILY WING Administration Diltiazem HCl 30 mg 12/27/16 17:00 Cardizem PO QID WING Haloperidol Lactate 5 mg 12/22/16 09:41 12/25/16 02:29 Haldol IM 5 mg Q6 PRN Administration Agitation Metoprolol Tartrate 50 mg 12/23/16 10:45 12/27/16 08:33 Lopressor PO 50 mg Q12 WING Administration Nystatin 1 applic 12/20/16 13:00 12/27/16 12:15 Nystop Topical Powder TOP 1 applic TID WING Administration Ondansetron HCl 4 mg 12/19/16 21:03 12/20/16 05:00 Zofran Inj IVP 4 mg Q6 PRN Administration Nausea/Vomiting - Patient Studies Lab Studies: Lab Studies 12/27/16 12/27/16 Range/Units 04:30 04:30 WBC 9.3 (4.8-10.8) K/uL RBC 4.44 (3.80-5.20) Mil/uL Hgb 12.4 (12.0-16.0) g/dL Hct 38.0 (34.0-47.0) % MCV 85.4 (81.0-99.0) fl MCH 27.9 (27.0-31.0) pg MCHC 32.6 L (33.0-37.0) g/dL RDW 15.1 H (11.5-14.5) % Plt Count 183 (130-400) K/uL Sodium 141 (132-148) mmol/l Potassium 3.5 L (3.6-5.0) MMOL/L Chloride 104 (98-107) mmol/L Carbon Dioxide 30 (22-30) mmol/L Anion Gap 11 (10-20) BUN 19 H (7-17) mg/dl Creatinine 0.6 L (0.7-1.2) mg/dL Est GFR ( Amer) > 60 Est GFR (Non-Af Amer) > 60 Random Glucose 92 (65-105) mg/dL Calcium 8.6 (8.4-10.2) mg/dL Total Bilirubin 2.6 H (0.2-1.3) mg/dl Direct Bilirubin 1.6 H (0.0-0.4) mg/ml AST 72 H D (14-36) U/L ALT 61 H D (9-52) U/L Alkaline Phosphatase 258 H D (38-126) U/L Total Protein 5.3 L (6.3-8.2) G/DL Albumin 2.7 L (3.5-5.0) g/dL Globulin 2.6 (2.2-3.9) gm/dL Albumin/Globulin Ratio 1.0 (1.0-2.1) Laboratory Results - last 24 hr 12/27/16 12/27/16 04:30 04:30 WBC 9.3 RBC 4.44 Hgb 12.4 Hct 38.0 MCV 85.4 MCH 27.9 MCHC 32.6 L RDW 15.1 H Plt Count 183 Sodium 141 Potassium 3.5 L Chloride 104 Carbon Dioxide 30 Anion Gap 11 BUN 19 H Creatinine 0.6 L Est GFR ( Amer) > 60 Est GFR (Non-Af Amer) > 60 Random Glucose 92 Calcium 8.6 Total Bilirubin 2.6 H Direct Bilirubin 1.6 H AST 72 H D ALT 61 H D Alkaline Phosphatase 258 H D Total Protein 5.3 L Albumin 2.7 L Globulin 2.6 Albumin/Globulin Ratio 1.0 Review of Systems - Review of Systems All systems: reviewed and no additional remarkable complaints except - Cardiovascular Cardiovascular: Irregular Heart Rhythm. absent: Chest Pain, Chest Pain at Rest , Lightheadedness, Palpitations, Rapid Heart Rate - Respiratory Respiratory: absent: Cough, Dyspnea on Exertion, Wheezing - Gastrointestinal Gastrointestinal: UNREMARKABLE - Genitourinary Genitourinary: UNREMARKABLE - Musculoskeletal Musculoskeletal: UNREMARKABLE - Integumentary Integumentary: absent: UNREMARKABLE - Psychiatric Psychiatric: absent: Anxiety, Behavioral Changes, Hallucinations Critical Care Progress Note - Extremities/Vascular Does the Patient have a Central Venous Catheter?: No Does the Patient need a Central Venous Catheter?: No Does the Patient have a Petty Catheter?: No Does the Patient need a Petty Catheter?: No - Prophylaxis GI Prophylaxis GI: Not Indicated - Prophylaxis DVT Prophylaxis DVT: Lovenox, SCDs - Nutrition Nutrition: Nutrition Category Date Time Status Heart Healthy Diet [DIET] Diets 12/21/16 Breakfast Active Assessment/Plan - Assessment and Plan (Free Text) Assessment: Pericardial effusion (large) with tamponade on ECHO, s/p pericardial window Delirium Paroxysmal A Fib with RVR Hypokalemia Solitary Lung Nodule and / or LV wall mass lesion Plan: - Pericardial / chest drains removed 3 days ago. - Consider Oncology eval. Re-review CT Chest findings. Consider Pulmonary consultation. - A Fib rate control with Digoxin prn - IVF hydration. - K repletion, supplement Mag- K levels still borderline low. - has been OOB and walking around ICU with Physical therapist with good tolerance.
[2016-12-27 15:46] VITALS: TEMP 97.9
--- NOTE | 2016-12-27 17:49 | US ---
HISTORY: Abnormal LFTs COMPARISON: CT chest, abdomen, pelvis with contrast performed 12/19/16 TECHNIQUE: Sonographic evaluation of the right upper quadrant of the abdomen. FINDINGS: Examination limited due to patient condition. LIVER: Measures 16.7 cm in length. Heterogeneous hepatic echotexture. No focal hepatic mass identified. Main portal vein appears patent with normal directional flow. No intrahepatic bile duct dilatation. GALLBLADDER: Gallbladder sludge and gallstones. 6 mm echogenic focus consistent with a gallbladder polyp. No gallbladder wall thickening or pericholecystic edema. Negative sonographic Paredes's sign as assessed by the soda maker. COMMON BILE DUCT: Measures 4 mm. PANCREAS: Not well-visualized. RIGHT KIDNEY: Measures 10.7 x 4.3 x 5.2 cm. No obstructing calculus or hydronephrosis identified. 2.1 x 1.0 x 1.5 cm hypoechoic avascular lesion most likely cyst. AORTA: Not well-visualized. IVC: Limited visualization appears grossly unremarkable. OTHER FINDINGS: Partially imaged moderate right-sided pleural effusion. IMPRESSION: Partially imaged moderate right-sided pleural effusion. Gallbladder sludge and gallstones. No evidence of gallbladder wall thickening or pericholecystic edema. Negative sonographic Paredes's sign as assessed by the soda maker. 6 mm echogenic focus consistent with a gallbladder polyp. No consensus exist regarding management of polyps in the size range. Current recommendations indicate continued surveillance with serial follow-up imaging at 3, 6, and 12 months. Heterogeneous hepatic echotexture. Additional findings as above.
[2016-12-27 18:09] VITALS: BP 104/58; PULSE 69; RESP 29; O2SAT 100
--- NOTE | 2016-12-27 18:58 | DS ---
SUBJECTIVE: The patient is seen today 12/27/2016. She is doing better and she is for discharge to [facility] unit. REASON FOR ADMISSION: This is a 76-year-old female with history of multiple medical problem s who was admitted for ____ to have cardiac tamponades, atrial fibrillation. COURSE OF HOSPITALIZATION: The patient underwent a pericardial window. The patient was admitted to intensive care unit and she did well postoperatively except for paroxysmal atrial fibrillation with r apid ventricular rate. The patient was started on rate controlling agents as well as anticoagulants and she was discharged to transitional care unit for deconditioning and rehabilitation. FINAL DIAGNOSIS: Cardiac tamponade, status post pericardial window, paroxysmal atrial fibrillation, hypertension, smoker. Herlinda Hopson MD cc: [id number] TT: 12/27/2016 18:57:44 jn
[2016-12-28 08:03] LABS: ALB/GLOB RATIO 1.1 (1.0-2.1); ALKALINE PHOSPHATASE 208 U/L (38-126); ALT/SGPT 68 U/L (9-52); AST/SGOT 57 U/L (14-36); BILIRUBIN,TOTAL 2.2 mg/dl (0.2-1.3); BLOOD UREA NITROGEN 18 mg/dl (7-17); CARBON DIOXIDE 30 mmol/L (22-30); CHLORIDE 104 mmol/L (98-107); GFR AFRICAN-AMERICAN > 60; GLUCOSE,RANDOM 89 mg/dL (65-105); POTASSIUM 4.4 MMOL/L (3.6-5.0); SODIUM 143 mmol/l (132-148)
--- NOTE | 2016-12-28 08:24 | OP ---
PROCEDURE DATE: 12/19/2016 PREOPERATIVE DIAGNOSES: 1. Pericardial effusion. 2. Cardiac tamponade. POSTOPERATIVE DIAGNOSES: 1. Hemorrhagic pericardial effusion. 2. Cardiac tamponade. OPERATION PERFORMED: 1. Subxyphoid pericardial window. 2. Mediastinal exploration and excisional biopsy of mediastinal fat pad. SURGEON: Kevin Solo MD ASSISTANTS: Dr. Lurdes Cheek SECOND ANALYTICS ARCHITECT: Dr. Jacobo Garcia THIRD ANALYTICS ARCHITECT: Dr. Khushboo Malik ANESTHESIA: Endotracheal general anesthesia. OPERATIVE FINDINGS: Approximately 700 mL of a hemorrhagic effusion was removed. Mediastinal explora tion revealed no unusual masses; however, excisional biopsy of mediastinal fat pad was then carried o ut. OPERATIVE PROCEDURE: The patient was taken to the operating room where the operative field was prepa red and draped in a sterile fashion. Once surgeons were ready and preparation of the operative field was completed, the patient was slowly induced and endotracheal intubation was then carried out uneve ntfully. Pericardium was approached through midline subxiphoid incision after amputating xiphoid pro cess. Lucinda retractor, subcutaneous tissues were retracted laterally and linea alba was then inc ised and the preperitoneal space was entered. Bleeding points were electrocauterized. Amputated mimi mp of the xiphoid process site was electrocauterized to establish hemostasis. Next, we did digital blunt dissection, substernal tunnel was created, and right and left pleura were retracted toward right and left respectively. Next, the diaphragm was grasped with Marc and while putting it down inferiorly, anterior surface of the pericardium was then carefully cleaned with a peanut, as well as using hot cautery carefully. A fter satisfactory exposure of the anterior surface of the pericardium, pericardium was impaled with a 21-gauge needle with a syringe and then blood was aspirated out of the pericardial space, confirming the space. Needle hole was gradually enlarged with mosquito, followed by tonsil clamps and he morrhagic effusion was evacuated in 3 Lukens tubes and was sent out for differential cell count and c ytology and microbiology, as well as chemistry. Using Metzenbaum scissors, approximately 8 x 5 cm pe ricardium was excised and was sent out for histological studies. After completely evacuating very fe w hemorrhagic effusions from the pericardial sac, the sac was irrigated with copious warm normal sali ne solution. At this time, mediastinal fat pad was dissected and was clamped and divided above the c lamp, and stump was then closed with 2-0 silk figure-of-8 stitches. Two 26-Mohawk chest tubes were i nserted from the right and left abdominal skin flaps through stab wound and right chest tube was dire cted to the left pericardial space and left tube was directed to the right pericardial space. These tubes were secured at the skin edge with 0 silk sutures. Subxiphoid incision was closed in layers, f ascia with a continuous #1 Maxon and subcutaneous fascia with a 2-0 Vicryl, and then skin with skin s taples. Sterile dressings were applied and taped in the usual manner. The patient tolerated the procedure very well and was transferred to the recovery room, extubated, wi th good vital signs. Estimated blood loss was approximately 30 mL. Sponge, needle, and instrument counts were correct. Kevin Solo MD cc: [id number] TT: 12/27/2016 16:23:23 dn
== END 2016-12-27 17:50 | DRG 271 ==
LOC: H.ER 13:52 → H.ERHOLD 15:11 → H.TEL 17:30 → H.ICU/CCU 12-19 15:09
PROVIDERS: ADMIT Internal Medicine; ATTEND Internal Medicine
PROC: 02BN0ZZ Excision of Pericardium, Open Approach (ICD-10-PCS; 2016-12-19)
PROC: 0WJC0ZZ Inspection of Mediastinum, Open Approach (ICD-10-PCS; 2016-12-19)
PROC: 0W9D00Z Drainage of Pericardial Cavity with Drainage Device, Open Approach (ICD-10-PCS; principal; 2016-12-19 14:30)
DX: I31.3 Pericardial effusion (noninflammatory) (principal); I45.89 Other specified conduction disorders; I31.4 Cardiac tamponade; I48.92 Unspecified atrial flutter; J90 Pleural effusion, not elsewhere classified; E86.0 Dehydration; I48.0 Paroxysmal atrial fibrillation; J44.9 Chronic obstructive pulmonary disease, unspecified; I10 Essential (primary) hypertension; J98.11 Atelectasis; E87.6 Hypokalemia; F17.200 Nicotine dependence, unspecified, uncomplicated; I25.10 Atherosclerotic heart disease of native coronary artery without angina pectoris; E78.00 Pure hypercholesterolemia, unspecified; Z95.5 Presence of coronary angioplasty implant and graft; Z79.82 Long term (current) use of aspirin; R45.1 Restlessness and agitation; R91.1 Solitary pulmonary nodule; Z78.1 Physical restraint status

== ENCOUNTER 2016-12-27 16:55 | Inpatient (IN) | payer OTHER, BC ==
[2016-12-27 18:13] VITALS: BMI 24.4
[2016-12-27] MEDS ORDERED: Potassium Chloride 20 mEq ER Tab PO ONE (21:00)
[2016-12-27] MEDS: Enoxaparin 60 mg Syringe SC SCH (21:22)
[2016-12-28 07:28] LABS: HEMATOCRIT 39.4 % (34.0-47.0); MEAN CELL VOLUME 86.2 fl (81.0-99.0); MEAN CORPUSCULAR HGB CONC 32.5 g/dL (33.0-37.0); RED CELL DISTRIBUTION WIDTH 15.5 % (11.5-14.5); WHITE BLOOD COUNT 9.1 K/uL (4.8-10.8)
[2016-12-28] MEDS: Enoxaparin 60 mg Syringe SC SCH ×2 (08:35→21:58)
[2016-12-28] MEDS: Bacitracin OINT 15GM TOP SCH (08:37)
--- NOTE | 2016-12-28 11:14 | HP ---
HISTORY OF PRESENT ILLNESS: The patient is seen today. She is a 76-year-old female with h istory of multiple medical problems, recently was admitted to intensive care unit for cardiac tampona de, status post pericardial window. The patient's stay in intensive care unit also was complicated w ith paroxysmal atrial fibrillation for which patient was started on anticoagulation and rate controll ing medications. The patient did well and she was discharged to transitional care unit for rehabilit ation and deconditioning and physical therapy. Currently, the patient denied to have any chest pain or shortness of breath or palpitation. REVIEW OF SYSTEMS: Other review of systems is negative. ALLERGIES: No known allergy. MEDICATIONS: Metoprolol 50 mg q. 12 hours, diltiazem 30 mg q.i.d. SOCIAL HISTORY: Positive smoking for many years. FAMILY HISTORY: Not contributory. PAST MEDICAL HISTORY: Hypertension, COPD and smoking. PHYSICAL EXAMINATION: GENERAL: The patient is in bed, comfortable, not in any cardiopulmonary distress at the time of this examination. VITAL SIGNS: Blood pressure 111/68, temperature 97.3, respiratory rate 20, and pulse 61. HEENT: Pupils equal, reactive to light. Normal-appearing mucosa of the conjunctivae, oropharyngeal and nasal membrane mucosa. NECK: Supple, no JVD, no carotid bruit, no lymph node, no thyromegaly. CHEST AND LUNGS: Bilateral symmetrical expansion, good air exchange, no rales, no rhonchi. CARDIOVASCULAR: PMI not localized. S1, S2. No additional sounds. ABDOMEN: Normoactive bowel sounds, no tenderness, no organomegaly, no masses. EXTREMITIES: No cyanosis, no clubbing, no edema. CENTRAL NERVOUS SYSTEM: Alert, awake, oriented x 2. No neurological deficits could be appreciated. ASSESSMENT: Status post cardiac tamponade and pericardial window, hypertension, paroxysmal atrial fi brillation. PLAN: We will continue current medications and DVT prophylaxis. Follow up with cardiology, and foll ow their recommendations. Herlinda Hopson MD cc: [id number] TT: 12/28/2016 11:13:30 tn
--- NOTE | 2016-12-28 17:43 | CON ---
DATE: 12/28/2016 CARDIOLOGY CONSULT REASON FOR CONSULTATION: Paroxysmal atrial fibrillation and status post pericardial window for peric ardial tamponade. HISTORY OF PRESENT ILLNESS: The patient is a 76-year-old female who lives by herself until recently when she presented with shortness of breath, was found to be in rapid atrial fibrillation. An echo w as consistent with pericardial tamponade. The patient underwent a pericardial window on an urgent ba sis. The biopsy and cytology were negative for malignancy. The patient was started on subcutaneous Lovenox therapy after removal of the pericardiostomy tube. The patient in ICU remained in paroxysmal atrial fibrillation and was initiated on oral Cardizem therapy yesterday. The patient was transferr ed to TCU today. At this time, the patient is with her [id number]. She is confused to place an d has poor oral intake but denies any shortness of breath or chest discomfort. SOCIAL HISTORY: The patient is a smoker. She is a nondrinker. She lives by herself until her most recent admission to the hospital. MEDICATIONS: Cardizem 30 mg 4 times a day, Haldol 5 mg IM q. 6 hours for agitation, Lopressor 50 mg orally twice a day, subcutaneous Lovenox at 60 mg twice a day, nystatin topical powder applied to bel ow breast areas, Zofran 4 mg intravenously q. 6 hours p.r.n. REVIEW OF SYSTEMS: The patient has poor appetite. She denies any nausea or vomiting. No reported f ever or chills. PHYSICAL EXAMINATION: GENERAL: The patient is an elderly female who does not appear to be in acute distress. VITAL SIGNS: Blood pressure 101/63, heart rate 79, temperature 97.3, respiration 20. HEENT: Normocephalic. CHEST: Minimal bilateral rhonchi. HEART: S1, S2 regular. ABDOMEN: Soft. EXTREMITIES: Significant muscle wasting. No pedal edema. LABORATORY DATA: CBC: WBC 9.1, hemoglobin and hematocrit 12.8 and 39.4, platelet count 193,000. SM A-7: Sodium 143, potassium 4.4, chloride 104, CO2 30, glucose 89, BUN 18, creatinine 0.6. ProBNP 34 20. TSH level is within normal limits. Echocardiographic study prior to the pericardial window reve als ejection fraction in the range of 50% to 55% with grade I abnormal relaxation pattern. The aorti c valve is mildly to moderately calcified but not stenotic. At that time, the patient had a pericard ial component and was subsequently taken to the OR for pericardial window. ASSESSMENT: 1. Paroxysmal atrial fibrillation. 2. Status post pericardial window for pericardial tamponade. 3. Altered mental status. RECOMMENDATIONS: Continue Cardizem at 30 mg 4 times a day, Haldol 5 mg IM q. 6 hours for agitation, Lopressor 50 mg twice a day, therapeutic subcutaneous Lovenox at 60 mg twice a day, and will start th iamine 100 mg once a day and obtain serum B12 level. Thor Still MD cc: [id number] TT: 12/28/2016 17:42:27 Confirmation # [id number] Dictation # [id number] ln
[2016-12-29] MEDS: Enoxaparin 60 mg Syringe SC SCH ×2 (09:06→20:42)
[2016-12-29] MEDS: Bacitracin OINT 15GM TOP SCH (09:13)
--- NOTE | 2016-12-29 11:58 | PN ---
DATE: 12/29/2016 The patient could not complete her physical therapy session today because of heart 55, according to the therapist, and the fact that the patient was feeling chilly and cold. The patient has no clothing except for paper gown and according to the staff that the floor usually relies upon the patient's clothing from home. I did instruct them to at least use hospital gowns. The patient denies any chest pain. PHYSICAL EXAMINATION: VITAL SIGNS: Blood pressure 106/64, heart rate 65, temperature 98.5, respirations 20. My own count of the heart rate was 60 beats per minute. HEENT: Normocephalic. CHEST: Clear. HEART: S1, S2 regular. EXTREMITIES: No edema. ASSESSMENT: 1. Paroxysmal atrial fibrillation. 2. Status post pericardial window for cardiac tamponade. 3. AMS 4. Sinus bradycardia RECOMMENDATIONS: Reduce Lopressor to 50 mg twice a day, hold for heart rate below 60. Reduce Cardizem to 30 mg t.i.d., hold for heart rate below 60. Continue subcutaneous Lovenox at 60 mg twice a day and consider initiating Eliquis instead of Lovenox at 2.5 mg twice a day. Thor Still MD cc: [id number] TT: 12/29/2016 11:57:57 Confirmation # [id number] Dictation # [id number] ramon SAUL
--- NOTE | 2016-12-29 16:19 | CP.PCM.CON ---
History of Present Illness - History of Present Illness History of Present Illness: Mrs. Alcaraz is a 76-year-old woman who is currently admitted to the TCU after having a complicated hospital course during which she was treated for cardiac tamponade and paroxysmal atrial fibrillation. She is currently on anticoagulation and is stable. 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 She complains that her memory is impaired and she has confusion at times. She blames it on all her recent physical illnesses and says that it has just been "one thing after another". She complained of mild chest pain, denied SOB, headache, nausea , weakness or sensory changes. She did not have nausea, visual changes or vertigo. Review of Systems - Review of Systems All systems: reviewed and no additional remarkable complaints except Past Patient History - Past Social History Smoking Status: Former Smoker - CARDIAC Hx Cardiac Disorders: Yes Hx Atrial Fibrillation: Yes Hx Hypercholesterolemia: Yes Hx Hypertension: Yes Other/Comment: coronary stent s/p. cardiac temponade. pericardial window - PULMONARY Hx Respiratory Disorders: No - NEUROLOGICAL Hx Neurological Disorder: No - HEENT Hx HEENT Problems: No - RENAL Hx Chronic Kidney Disease: No - ENDOCRINE/METABOLIC Hx Endocrine Disorders: No - HEMATOLOGICAL/ONCOLOGICAL Hx Blood Disorders: No Hx Blood Transfusions: No - INTEGUMENTARY Hx Dermatological Problems: No - MUSCULOSKELETAL/RHEUMATOLOGICAL Hx Musculoskeletal Disorders: No Hx Falls: No - GASTROINTESTINAL Hx Gastrointestinal Disorders: No - GENITOURINARY/GYNECOLOGICAL Hx Genitourinary Disorders: No - PSYCHIATRIC Hx Psychophysiologic Disorder: No Hx Substance Use: No - SURGICAL HISTORY Hx Surgeries: Yes Hx Cardiac Catheterization: Yes - ANESTHESIA Hx Anesthesia: Yes Hx Anesthesia Reactions: No Hx Malignant Hyperthermia: No Has any member of the family had a problem w/ anesthesia?: No Meds Allergies/Adverse Reactions: Allergies Allergy/AdvReac Type Severity Reaction Status Date / Time No Known Allergies Allergy Verified 12/27/16 18:13 - Medications Medications: Current Medications Bacitracin (Bacitracin Oint) 1 applic TOP DAILY [facility] Last Admin: 12/29/16 09:13 Dose: 1 applic Diltiazem HCl (Cardizem) 30 mg PO TID [facility] Last Admin: 12/29/16 13:23 Dose: Not Given Enoxaparin Sodium (Lovenox) 60 mg SC Q12 [facility] PRN Reason: Protocol Last Admin: 12/29/16 09:06 Dose: 60 mg Haloperidol Lactate (Haldol) 5 mg IM Q6 PRN PRN Reason: Agitation Metoprolol Tartrate (Lopressor) 25 mg PO Q12 [facility] Nystatin (Nystop Topical Powder) 1 applic TOP TID [facility] Last Admin: 12/29/16 13:24 Dose: 1 u Ondansetron HCl (Zofran Inj) 4 mg IVP Q6 PRN PRN Reason: Nausea/Vomiting Thiamine HCl (Vitamin B1 Tab) 100 mg PO DAILY [facility] Last Admin: 12/29/16 09:07 Dose: 100 mg Physical Exam - Constitutional Appears: Chronically Ill - Head Exam Head Exam: ATRAUMATIC, NORMAL INSPECTION, NORMOCEPHALIC - Eye Exam Eye Exam: EOMI, Normal appearance, PERRL - ENT Exam ENT Exam: Mucous Membranes Moist, Normal Exam - Neck Exam Neck exam: Positive for: Normal Inspection - Respiratory Exam Respiratory Exam: Clear to Auscultation Bilateral, NORMAL BREATHING PATTERN - Cardiovascular Exam Cardiovascular Exam: +S1, +S2 - GI/Abdominal Exam GI & Abdominal Exam: Normal Bowel Sounds, Soft. absent: Tenderness - Back Exam Back exam: NORMAL INSPECTION - Neurological Exam Neurological exam: Alert, CN II-XII Intact, Normal Gait, Reflexes Normal Additional comments: Oriented to person, but not oriented to time or place. Says that she always forgets the name of this place. 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 Recalls 0/3 objects. Could not complete attention tasks. Fine motor deficits were noted on the right side and she had brisk reflexes with equivocal plantar response on the right side. Generalized weakness due to deconditioning. Otherwise non-focal. - Psychiatric Exam Psychiatric exam: Agitated - Skin Skin Exam: Dry, Intact, Normal Color, Warm Results - Vital Signs Recent Vital Signs: Last Vital Signs Temp 98.5 F 12/29/16 09:20 Pulse 55 L 12/29/16 14:27 Resp 18 12/29/16 13:23 BP 107/52 L 12/29/16 14:27 Pulse Ox 95 12/29/16 14:27 - Labs Result Diagrams: 12/28/16 07:19 Labs: Laboratory Results - last 24 hr 12/29/16 06:51 Vitamin B12 387 - Imaging and Cardiology CT scan - head Status: Image reviewed by me, Report reviewed by me (No significant acute findings. ) Assessment & Plan (1) Encephalopathy Assessment and Plan: Considering her recent history of paroxysmal atrial fibrillation and cardiac tamponade, there is concern that she may have had some cerebral ischemic to cause a sort of vascular type dementia. I recommend an MRI/MRA of the brain to evaluate. We may then consider Aricept after reviewing the results. Continue anticoagulation per primary team and cardiology. Consider follow-up echocardiogram with bubble study. Continue PT/OT and cognitive therapy. Check B12, folate, TSH and provide adequate diurnal patterns. Avoid benzodiazepines or opiates for now. Thank you for this consultation. Status: Acute Priority: High
--- NOTE | 2016-12-29 17:57 | CP.PCM.CON ---
History of Present Illness - History of Present Illness History of Present Illness: Cardiothoracic consult note for Dr. Solo Consult reason: lipoma, L heart ventricular wall mass Pt is a 76 y/o F with PMH of HTN, HLD, afib and new onset dementia who is POD# 10 s/p pericardial window for large ronaldo-cardial effusion with cardiac tamponade. Pre-op CT of the chest also showed a mass in her left upper lobe, a mass in the left ventricle wall of the heart. Patient's ronaldo-cardial effusion resolved well, patient's clinical state stabilized and patient was transferred to TCU. A large subcutaneous lipoma was noted on physical exam by surgery Past Patient History - Past Social History Smoking Status: Former Smoker - CARDIAC Hx Cardiac Disorders: Yes Hx Atrial Fibrillation: Yes Hx Hypercholesterolemia: Yes Hx Hypertension: Yes Other/Comment: coronary stent s/p. cardiac temponade. pericardial window - PULMONARY Hx Respiratory Disorders: No - NEUROLOGICAL Hx Neurological Disorder: No - HEENT Hx HEENT Problems: No - RENAL Hx Chronic Kidney Disease: No - ENDOCRINE/METABOLIC Hx Endocrine Disorders: No - HEMATOLOGICAL/ONCOLOGICAL Hx Blood Disorders: No Hx Blood Transfusions: No - INTEGUMENTARY Hx Dermatological Problems: No - MUSCULOSKELETAL/RHEUMATOLOGICAL Hx Musculoskeletal Disorders: No Hx Falls: No - GASTROINTESTINAL Hx Gastrointestinal Disorders: No - GENITOURINARY/GYNECOLOGICAL Hx Genitourinary Disorders: No - PSYCHIATRIC Hx Psychophysiologic Disorder: No Hx Substance Use: No - SURGICAL HISTORY Hx Surgeries: Yes Hx Cardiac Catheterization: Yes - ANESTHESIA Hx Anesthesia: Yes Hx Anesthesia Reactions: No Hx Malignant Hyperthermia: No Has any member of the family had a problem w/ anesthesia?: No Meds Allergies/Adverse Reactions: Allergies Allergy/AdvReac Type Severity Reaction Status Date / Time No Known Allergies Allergy Verified 12/27/16 18:13 - Medications Medications: Current Medications Bacitracin (Bacitracin Oint) 1 applic TOP DAILY WING Last Admin: 12/29/16 09:13 Dose: 1 applic Diltiazem HCl (Cardizem) 30 mg PO TID WING Last Admin: 12/29/16 16:58 Dose: Not Given Enoxaparin Sodium (Lovenox) 60 mg SC Q12 WING PRN Reason: Protocol Last Admin: 12/29/16 09:06 Dose: 60 mg Haloperidol Lactate (Haldol) 5 mg IM Q6 PRN PRN Reason: Agitation Metoprolol Tartrate (Lopressor) 25 mg PO Q12 [facility] Nystatin (Nystop Topical Powder) 1 applic TOP TID [facility] Last Admin: 12/29/16 16:57 Dose: 1 u Ondansetron HCl (Zofran Inj) 4 mg IVP Q6 PRN PRN Reason: Nausea/Vomiting Thiamine HCl (Vitamin B1 Tab) 100 mg PO DAILY [facility] Last Admin: 12/29/16 09:07 Dose: 100 mg Results - Vital Signs Recent Vital Signs: Last Vital Signs Temp 97.9 F 12/29/16 16:43 Pulse 56 L 12/29/16 16:58 Resp 18 12/29/16 16:58 BP 110/58 L 12/29/16 16:43 Pulse Ox 94 L 12/29/16 16:43 - Labs Result Diagrams: 12/28/16 07:19 Labs: Laboratory Results - last 24 hr 12/29/16 06:51 Vitamin B12 387
[2016-12-29 20:21] VITALS: RESP 20
--- NOTE | 2016-12-29 20:56 | PN ---
DATE: 12/29/2016 SUBJECTIVE: The patient is seen today, 12/29/2016. She is less confused as per nurses. PHYSICAL EXAMINATION: VITAL SIGNS: Blood pressure is 110/58, temperature 97.9, respiratory rate 20, and pulse is 59. HEENT: Pupils equal, reactive to light. Normal-appearing mucosa of the conjunctivae, oropharyngeal and nasal membrane mucosa. NECK: Supple, no JVD, no carotid bruit, no lymph node, no thyromegaly. CHEST AND LUNGS: Bilateral symmetrical expansion, good air exchange, no rales, no rhonchi. CARDIOVASCULAR: PMI not localized. S1, S2. No additional sounds. Irregularly irregular. ABDOMEN: Normoactive bowel sounds, no tenderness, no organomegaly, no masses. EXTREMITIES: No cyanosis, no clubbing, no edema. CENTRAL NERVOUS SYSTEM: Alert, awake, oriented x 1. No neurological deficits could be appreciated. ASSESSMENT: 1. Status post cardiac tamponade and pericardial window. 2. Paroxysmal atrial fibrillation. 3. Possible thoracic mass. PLAN: We will consult cardiothoracic surgery for further recommendation regarding the possible intra thoracic mass, as well as continue current management and follow recommendations of engineering recruiter. Herlinda Hopson MD cc: [phone] TT: 12/29/2016 20:55:12 Confirmation # [id number] Dictation # [id number] ramon
[2016-12-30] MEDS: Bacitracin OINT 15GM TOP SCH (08:50)
[2016-12-30] MEDS: Enoxaparin 60 mg Syringe SC SCH ×2 (08:52→22:09)
--- NOTE | 2016-12-30 09:38 | PN ---
DATE: 12/30/2016 The patient seen and examined. The patient is seen for Dr. Hopson while he is away. The patient afua ins in transitional care unit. Denies any specific complaints. No chest pain, no shortness of breat h. PHYSICAL EXAMINATION: GENERAL: The patient is in no acute distress. VITAL SIGNS: Temperature 97.3, pulse 65, respiration 20, blood pressure 128/66, saturation 97%. HEART: S1, S2 normal, regular. LUNGS: Good bilateral air exchange. ABDOMEN: Soft, nontender. EXTREMITIES: No edema, no calf swelling, no tenderness, no acute ischemia. CENTRAL NERVOUS SYSTEM: Essentially unchanged. The patient is status post pericardial window. DIAGNOSTIC DATA: Available diagnostic data reviewed. Vitamin B12 level is 397. Neurology consult and cardiology consult noted and appreciated. Overall, the patient's medical condition is clinically stable. PLAN: As ordered. Dillon Greco MD cc: [id number] TT: 12/30/2016 09:37:09 Confirmation # [id number] Dictation # [id number] andriy
--- NOTE | 2016-12-30 15:12 | PN ---
DATE: 12/30/2016 The patient denies any dizziness, chest pain or shortness of breath. Her son got her clothing from [employer]. The patient still reported to be bradycardic while undergoing rehab. Heart rate today was 52 and 59. PHYSICAL EXAMINATION: VITAL SIGNS: Blood pressure 112/56, heart rate 69, temperature 97.3, respirations 20. HEENT: Normocephalic. CHEST: Clear. HEART: S1, S2 regular. EXTREMITIES: No edema. ASSESSMENT: 1. Status post pericardial window for cardiac tamponade. 2. Questionable mass adjacent to the cardiac border. 3. Paroxysmal atrial fibrillation. RECOMMENDATIONS: Continue Cardizem 30 mg t.i.d., reduce Lopressor 12.5 mg twice a day. I did reques t a chest CT scan without contrast as a followup study. Thor Still MD cc: [id number] TT: 12/30/2016 15:11:23 Confirmation # [id number] Dictation # [id number] ramon
[2016-12-31] MEDS: Bacitracin OINT 15GM TOP SCH (08:37)
--- NOTE | 2016-12-31 08:58 | PN ---
DATE: 12/31/2016 The patient seen and examined. Interim events noted. The patient remains in transitional care unit. The patient is seen for Dr. Hopson while he is away. Cardiology consult noted and appreciated. The patient feels okay. No specific complaints. No chest pain, no shortness of breath. PHYSICAL EXAMINATION: GENERAL: The patient is in no acute distress. VITAL SIGNS: Stable. HEART: S1, S2 normal, regular. LUNGS: Good bilateral air exchange. ABDOMEN: Soft, nontender. No organomegaly. No fluid. Bowel sounds are plus. SKIN: The patient has fungal infection underneath her breast. surgical site is clean, has sta ples in place. EXTREMITIES: No edema, no calf swelling, no tenderness, no acute ischemia. CENTRAL NERVOUS SYSTEM: Essentially unchanged. DIAGNOSTIC DATA: Available reviewed. Overall, patient's general medical condition is stable. PLAN: As ordered. Dillon Greco MD cc: [id number] TT: 12/31/2016 08:58:19 Confirmation # [id number] Dictation # [id number] en
[2016-12-31] MEDS ORDERED: Enoxaparin 60 mg Syringe SC SCH (09:00)
[2016-12-31 16:33] VITALS: BP 100/40; PULSE 55; TEMP 98.1; O2SAT 95
== END 2016-12-31 17:37 | disposition short-term general hospital (02) | DRG 310 ==
LOC: H.TCU 18:16
PROVIDERS: ADMIT Internal Medicine; ATTEND Internal Medicine
PROC: F07M6FZ Therapeutic Exercise Treatment of Musculoskeletal System - Whole Body using Assistive, Adaptive, Supportive or Protective Equipment (ICD-10-PCS; principal; 2016-12-27)
DX: I48.0 Paroxysmal atrial fibrillation (principal); J44.9 Chronic obstructive pulmonary disease, unspecified; I10 Essential (primary) hypertension; F17.200 Nicotine dependence, unspecified, uncomplicated; E78.00 Pure hypercholesterolemia, unspecified; Z79.01 Long term (current) use of anticoagulants; Z95.5 Presence of coronary angioplasty implant and graft; R00.1 Bradycardia, unspecified

== ENCOUNTER 2016-12-31 17:34 | Inpatient (IN) | payer MEDICARE, BC ==
[2016-12-31 17:35] VITALS: PULSE 143; BMI 24.4
--- NOTE | 2016-12-31 18:05 | ED PDOC ---
HPI: SOB/CHF/COPD Time Seen by Provider: 12/31/16 17:44 Chief Complaint (Nursing): Shortness Of Breath Chief Complaint (Provider): Shortness of Breath History Per: Patient History/Exam Limitations: no limitations Additional Complaint(s): Tamiko Alcaraz is a 76 y/o female presenting to the ER on 12/31/2016 with complaints of shortness of breath. Patient was originally admitted to TCU having a pericardial window performed for her pericardial effusion. Over the last couple of days, she notes having intermittent shortness of breath. Chest CT was done which showed questionable residual effusion, thus sending the patient down to the ED for further evaluation. She denies any other medical or physical complaints at this time. PMD-Herlinda Hopson Past Medical History Reviewed: Historical Data, Nursing Documentation, Vital Signs Vital Signs: Last Vital Signs Temp 97.9 F 12/31/16 17:39 Pulse 71 12/31/16 19:53 Resp 17 12/31/16 19:53 BP 130/92 H 12/31/16 19:53 Pulse Ox 98 12/31/16 19:53 - Medical History PMH: Atrial Fibrillation, CAD, HTN, Hypercholesterolemia Denies: Chronic Kidney Disease - Surgical History Surgical History: No Surg Hx - Family History Family History: States: Unknown Family Hx - Social History Current smoker - smoking cessation education provided: No Alcohol: None Drugs: Denies - Home Medications Home Medications: Ambulatory Orders Medication Instructions Recorded Bacitracin OINT 1 applic TOP DAILY 12/27/16 Haloperidol Lactate [Haloperidol 5 mg IM Q6 PRN 12/27/16 Lactate Novaplus] Nystatin [Nystop Topical Powder] 1 applic TOP TID bottle 12/27/16 Ondansetron [Zofran Inj] 4 mg IVP Q6 PRN vial 12/27/16 Enoxaparin Sodium 60 mg SQ Q12H 12/31/16 Metoprolol Tartrate [Lopressor] 12.5 mg PO Q12 12/31/16 Thiamine HCl [B-1] 100 mg PO DAILY 12/31/16 diltiaZEM [Cardizem] 30 mg PO TID 12/31/16 - Allergies Allergies/Adverse Reactions: Allergies Allergy/AdvReac Type Severity Reaction Status Date / Time No Known Allergies Allergy Verified 12/27/16 18:13 Review of Systems ROS Statement: Except As Marked, All Systems Reviewed And Found Negative Respiratory: Positive for: Shortness of Breath Physical Exam - Reviewed Nursing Documentation Reviewed: Yes Vital Signs Reviewed: Yes - Physical Exam Appears: Positive for: Non-toxic, No Acute Distress Head Exam: Positive for: ATRAUMATIC, NORMOCEPHALIC Skin: Positive for: Normal Color. Negative for: Rash Eye Exam: Positive for: Normal appearance, EOMI, PERRL ENT: Positive for: Normal ENT Inspection. Negative for: Pharyngeal Erythema, Tonsillar Exudate, Tonsillar Swelling Neck: Positive for: Normal, Painless ROM, Supple Cardiovascular/Chest: Positive for: Regular Rate, Rhythm, Other (healing wound over the lower sternum with barb in place ). Negative for: Murmur Respiratory: Positive for: Decreased Breath Sounds, Crackles ((+) right base ) Gastrointestinal/Abdominal: Positive for: Normal Exam, Soft. Negative for: Tenderness Extremity: Positive for: Normal ROM, Swelling ((+) 1+ pitting edema to lower ankles bilat ). Negative for: Tenderness, Deformity Neurologic/Psych: Positive for: Alert, Oriented. Negative for: Motor/Sensory Deficits - Laboratory Results Result Diagrams: 12/31/16 18:45 12/31/16 18:25 - ECG ECG Rhythm: Positive for: Sinus Rhythm (@ 73). Negative for: Normal QRS (low voltage QRS ), ST/T Changes (no specific ST/T wave changes which appears similar to prior EKG on 12/18/2016 ) O2 Sat by Pulse Oximetry: 99 Medical Decision Making Medical Decision Making: cxr- appears similar to prior Disc w Dr Greco- will admit Documented by Kevin Quezada, acting as a scribe for Meek Castro MD. All medical record entries made by the Scribe were at my direction and personally dictated by me. I have reviewed the chart and agree that the record accurately reflects my personal performance of the history, physical exam, medical decision making, and the department course for this patient. I have also personally directed, reviewed, and agree with the discharge instructions and disposition. Disposition - Clinical Impression Clinical Impression: Pericardial effusion - Disposition Disposition Time: 20:24 Condition: STABLE
[2016-12-31 18:43] LABS: ALB/GLOB RATIO 1.1 (1.0-2.1); ALBUMIN 3.2 g/dL (3.5-5.0); ALT/SGPT 48 U/L (9-52); AST/SGOT 26 U/L (14-36); BLOOD UREA NITROGEN 15 mg/dl (7-17); CALCIUM 8.8 mg/dL (8.4-10.2); GFR AFRICAN-AMERICAN > 60; GFR NON-AFRICAN AMERICAN > 60
[2016-12-31 18:55] LABS: B-TYPE NATRIURETIC PEPTIDE 9400 pg/ml (0-900)
[2016-12-31 18:56] LABS: BASO % 0.6 % (0.0-2.0); EOS # 0.1 K/uL (0.0-0.7); EOS % 0.9 % (0.0-4.0); LYMPH # 0.8 K/uL (1.0-4.3); LYMPH % 10.2 % (20.0-40.0); MEAN CELL VOLUME 86.4 fl (81.0-99.0); MEAN CORPUSCULAR HEMOGLOBIN 27.8 pg (27.0-31.0); MEAN CORPUSCULAR HGB CONC 32.1 g/dL (33.0-37.0); MEAN PLATELET VOLUME 9.3 fl (7.2-11.7); MONO # 0.9 K/uL (0.0-0.8); MONO % 11.7 % (0.0-10.0); NEUT % 76.6 % (50.0-75.0); NRBC % 0.1 % (0.0-0.0); RBC 4.33 Mil/uL (3.80-5.20); RED CELL DISTRIBUTION WIDTH 15.8 % (11.5-14.5); WHITE BLOOD COUNT 7.9 K/uL (4.8-10.8)
[2017-01-01] MEDS ORDERED: Metoprolol 1 mg/ml Inj IVP ONE ×2 (07:59→08:03)
--- NOTE | 2017-01-01 10:15 | CP.PCM.CON ---
<BishopKhushboo rose - Last Filed: 01/01/17 10:28> History of Present Illness - History of Present Illness History of Present Illness: Cardiothoracic surgery consult note for Dr. Solo Consulted for: ronaldo-cardial effusion and Left cardiac ventricular mass Patient is a 76F with PMH of afib, new onset dementia, HTN, and HLD with extensive tobacco smoking history POD#13 s/p pericardial window procedure for ronaldo-cardial effusion with cardiac tamponade. Patient recovered well from the procedure and was transferred to the TCU but developed worsening SOB over the weekend and was re-admitted. CT of the chestfrom yesterday showed a persistent small pericardial effusion improved since CT before ronaldo-cardial window. CT also showed persistent lesion in the left ventricle concerning for a mass as well as a mass in the Posterior superior lobe of the left lung. Patient was awake and alert during exam, but not oriented to place, time, or purpose. Patient reported mild problems breathing overnight but was unable to specify further. Denies any chest pain, fever, chills, or any other complaints. A large subcutaneous mass that is consistent with a lipoma was noted on her left back during exam and but patient denied any pain or discomfort from it. PMH: afib, dementia, HTN, HLD PSH: hysterectomy, pericardial window All: NKDA Social: 2PPD for several decades, current smoker. Lives at home by herself Review of Systems - Review of Systems Systems not reviewed;Unavailable: Altered Mental Status All systems: reviewed and no additional remarkable complaints except (as per HPI ) - Constitutional Constitutional: As Per HPI, Fatigue - Breasts Breasts: Skin Changes - Cardiovascular Cardiovascular: absent: Chest Pain, Chest Pain at Rest, Slow Heart Rate - Respiratory Respiratory: Dyspnea - Gastrointestinal Gastrointestinal: absent: Nausea, Vomiting - Musculoskeletal Musculoskeletal: absent: Back Pain Past Patient History - Past Medical History & Family History Past Medical History?: Yes Past Family History: Reviewed and not pertinent - Past Social History Smoking Status: Heavy Smoker > 10 Cigarettes Daily Home Situation {Lives}: Alone - CARDIAC Hx Atrial Fibrillation: Yes Hx Hypercholesterolemia: Yes Hx Hypertension: Yes Other/Comment: pericardial effusion - PULMONARY Hx Respiratory Disorders: No - NEUROLOGICAL Hx Neurological Disorder: No - HEENT Hx HEENT Problems: No - RENAL Hx Chronic Kidney Disease: No - ENDOCRINE/METABOLIC Hx Endocrine Disorders: No - HEMATOLOGICAL/ONCOLOGICAL Hx Blood Disorders: No Hx Blood Transfusions: No - INTEGUMENTARY Hx Dermatological Problems: No - MUSCULOSKELETAL/RHEUMATOLOGICAL Hx Falls: No - GASTROINTESTINAL Hx Gastrointestinal Disorders: No - GENITOURINARY/GYNECOLOGICAL Hx Genitourinary Disorders: No - PSYCHIATRIC Hx Substance Use: No - SURGICAL HISTORY Hx Surgeries: Yes Hx Cardiac Catheterization: Yes Other/Comment: pericardial window for ronaldo-cardial fluid drainage - ANESTHESIA Hx Anesthesia: Yes Hx Anesthesia Reactions: No Hx Malignant Hyperthermia: No Meds Allergies/Adverse Reactions: Allergies Allergy/AdvReac Type Severity Reaction Status Date / Time No Known Allergies Allergy Verified 12/27/16 18:13 - Medications Medications: Current Medications Metoprolol Tartrate (Lopressor) 12.5 mg PO BID WING Physical Exam - Constitutional Appears: Well, Non-toxic, No Acute Distress, Confused - Eye Exam Eye Exam: Normal appearance. absent: Conjunctival injection, Scleral icterus - ENT Exam ENT Exam: Mucous Membranes Moist, Normal Oropharynx - Respiratory Exam Respiratory Exam: NORMAL BREATHING PATTERN. absent: Accessory Muscle Use, Respiratory Distress Additional comments: on nasal cannula - Cardiovascular Exam Cardiovascular Exam: absent: Bradycardia, Tachycardia - GI/Abdominal Exam GI & Abdominal Exam: absent: Distended - Extremities Exam Extremities exam: Positive for: pedal pulses present. Negative for: calf tenderness, pedal edema - Back Exam Additional comments: Large subcutaneous mass in the left lower back approximately 8x12cm raised approximately 5cm, non-tender, non-fluctuant, non-erythematous, mobile, soft with texture of subcutaneous fatty tissue - Neurological Exam Neurological exam: Alert Additional comments: Oriented only to person, unable to state place, time, or purpose - Psychiatric Exam Psychiatric exam: Normal Affect, Normal Mood - Skin Additional comments: Skin under breasts BL erythematous, wet, and excoriated. Surgical incision over chest well approximated and healed with barb, chest tube insertion site in the inferior central chest healing well. Results - Vital Signs Recent Vital Signs: Last Vital Signs Temp 97.4 F L 01/01/17 08:07 Pulse 123 H 01/01/17 08:11 Resp 18 01/01/17 08:07 BP 114/68 01/01/17 08:11 Pulse Ox 99 01/01/17 08:07 - Labs Result Diagrams: 12/31/16 18:45 12/31/16 18:25 Assessment & Plan - Assessment and Plan (Free Text) Assessment: 76F POD#13 s/p pericardial window for drainage of pericardial effusion. L cardiac ventricular lesion and left upper lung mass on CT. Back lesion suspicious for large lipoma -CT from 12/30: small persistent pericardial effusion, left upper lung mass, left ventricular lesion, persistent BL pleural effusions mildly increased on the left -Vitals currently stable Plan: -Repeat Echocardiogram to re-evaluate for cardiac tamponade--full surgical plan pending results -Ventricular mass evaluation per salesperson fashion accessories. Full workup and treatment would require transfer to a facility with cardiac bypass capacity -L back lipoma: not currently symptomatic or a danger to patient's health. Given the other pressing health concerns and overall state of patient, no surgical intervention planned at this time unless family -F/u cardiology recs -Wound care nursing consult for skin excoriation Discussed with Dr. Germania Bishop, PGY1 <Kevin Solo - Last Filed: 01/01/17 12:35> Meds - Medications Medications: Current Medications Diltiazem HCl (Cardizem) 30 mg PO TID [facility] Last Admin: 01/01/17 12:04 Dose: 30 mg Metoprolol Tartrate (Lopressor) 12.5 mg PO BID [facility] Last Admin: 01/01/17 09:00 Dose: Not Given Results - Vital Signs Recent Vital Signs: Last Vital Signs Temp 97.9 F 01/01/17 12:20 Pulse 118 H 01/01/17 12:20 Resp 18 01/01/17 12:20 BP 143/77 01/01/17 12:20 Pulse Ox 96 01/01/17 12:20 - Labs Result Diagrams: 12/31/16 18:45 12/31/16 18:25
--- NOTE | 2017-01-01 13:03 | RAD ---
HISTORY: sob COMPARISON: 12/24/2016 FINDINGS: LUNGS: No definite infiltrate. Circumscribed opacity adjacent to right heart border without silhouetting of right heart border, uncertain significance. This may reflect a postoperative collection as demonstrated on recent CT chest examination though there is no silhouetting of the right heart border. PLEURA: Bilateral small pleural effusion. No pneumothorax. CARDIOVASCULAR: No cardiomegaly. No congestive change. OSSEOUS STRUCTURES: No significant abnormalities. VISUALIZED UPPER ABDOMEN: Normal. OTHER FINDINGS: None. IMPRESSION: Right pericardiac circumscribed opacity, uncertain significance. Possibly related to postoperative collection. Small bilateral pleural effusion.
--- NOTE | 2017-01-01 13:27 | CON ---
DATE: 01/01/2017 The patient is a 76-year-old female who is a smoker, who was admitted initially on 12/18 because of s hortness of breath and rapid atrial fibrillation. The patient was found to have large pericardial ef fusion with pericardial tamponade. She underwent pericardial window and remained on pericardial osto my tube drainage for a few days in ICU. The biopsy report of the pericardial tissue as well as the c ytology of the pericardial fluid were negative for malignancy. The patient was transferred to TCU. However, on TCU, the patient was transferred to admission to telemetry because of shortness of breath . The patient has been on and off confused since her earlier admission to the ICU. The patient katherin es any hemoptysis or retrosternal chest pain. The patient, while in TCU, was in sinus bradycardia an d both Cardizem and Lopressor were reduced. However, she is currently in paroxysmal atrial fibrillat ion. SOCIAL HISTORY: The patient is a smoker. She lives by herself. 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 CURRENT MEDICATIONS: Cardizem 30 mg p.o. t.i.d., Lopressor 12.5 mg twice a day. REVIEW OF SYSTEMS: No dizziness or syncope. No ventricular arrhythmia and no reported hypotension. PHYSICAL EXAMINATION: GENERAL: The patient is an elderly female who does not appear to be in acute distress. VITAL SIGNS: Blood pressure 143/77, heart rate 118, temperature 97.9, respiration 18. HEENT: Normocephalic. CHEST: Bilateral rhonchi. HEART: S1, S2 irregular. ABDOMEN: Soft. EXTREMITIES: No edema. Significant muscle wasting. LABORATORIES: Hemoglobin and hematocrit 12 and 37.4, white count and platelet count are 7.9 and 172, 000. SMA-7: Sodium 140, potassium 4.2, chloride 105, CO2 29, glucose 152, BUN 15, creatinine 0.8. ProBNP is 9400. One set of troponin is negative. EKG revealed sinus rhythm at rate of 73, frequent PVCs, consider lateral ischemic ST-T wave changes. Chest x-ray revealed normal cardiac silhouette, consider bilateral pleural effusion, right lower lob e opacification. Chest CT scan performed the day before yesterday concluded status post pericardial window with marked decrease in size of the pericardial effusion. There is, however, elliptical shape d soft tissue mass density located anterior to the heart, adjacent to the mid and right parasagittal chest wall. It measures approximately 5.6 cm x 4.8 cm x 3.4 cm. This could represent proteinaceous collection of flow fluid or hemorrhage which compresses the ventral surface of the right atrium and r ight ventricle. There is another smaller collection within the subcutaneous tissue adjacent to the s kin closure barb, just to the right of the midline that measures 2.1 cm x 1.2 cm. Moderate right- sided pleural effusion and mild atelectasis right lower lung field. Small left-sided pleural effusio n. ASSESSMENT: 1. Status post pericardial window for pericardial tamponade. 2. Paroxysmal atrial fibrillation. 3. Bilateral pleural effusion. 4. Questionable lung mass adjacent to the heart. RECOMMENDATIONS: Continue current Cardizem at 30 mg t.i.d., Lopressor 12.5 mg twice a day. Hold on further anticoagulation for now until the patient is evaluated by the thoracic surgeon, Dr. Solo. Co nsider PET scan. I will obtain PT, PTT and the patient is scheduled for repeat echocardiograph study . Thor Still MD cc: [id number] TT: 01/01/2017 13:26:15 Confirmation # [id number] Dictation # [id number] en
--- NOTE | 2017-01-01 13:39 | CP.PCM.CON ---
History of Present Illness - History of Present Illness History of Present Illness: Reason for consultation: Recurrent pericardial effusion and tamponade. Requested by Dr. Hopson pt s/e. progress notes and imaging studies reviewed. ct chest(12/31/16) shows small pericardial effusion, and upper incisional area show extrapericardial mass as a result of surgery. If concern is cardiac tamponade please obtain cardiac echo. a/p: Doubt cardiac tamponse. small pericardial effusuion.. Recomm CArdiac Echo. Please keep barb for at least 2wks from the time of surgery. Past Patient History - Past Medical History & Family History Past Medical History?: Yes Past Family History: Reviewed and not pertinent - Past Social History Smoking Status: Heavy Smoker > 10 Cigarettes Daily Home Situation {Lives}: Alone - CARDIAC Hx Atrial Fibrillation: Yes Hx Hypercholesterolemia: Yes Hx Hypertension: Yes Other/Comment: pericardial effusion - PULMONARY Hx Respiratory Disorders: No - NEUROLOGICAL Hx Neurological Disorder: No - HEENT Hx HEENT Problems: No - RENAL Hx Chronic Kidney Disease: No - ENDOCRINE/METABOLIC Hx Endocrine Disorders: No - HEMATOLOGICAL/ONCOLOGICAL Hx Blood Disorders: No Hx Blood Transfusions: No - INTEGUMENTARY Hx Dermatological Problems: No - MUSCULOSKELETAL/RHEUMATOLOGICAL Hx Falls: No - GASTROINTESTINAL Hx Gastrointestinal Disorders: No - GENITOURINARY/GYNECOLOGICAL Hx Genitourinary Disorders: No - PSYCHIATRIC Hx Substance Use: No - SURGICAL HISTORY Hx Surgeries: Yes Hx Cardiac Catheterization: Yes Other/Comment: pericardial window for ronaldo-cardial fluid drainage - ANESTHESIA Hx Anesthesia: Yes Hx Anesthesia Reactions: No Hx Malignant Hyperthermia: No Meds Allergies/Adverse Reactions: Allergies Allergy/AdvReac Type Severity Reaction Status Date / Time No Known Allergies Allergy Verified 12/27/16 18:13 - Medications Medications: Current Medications Diltiazem HCl (Cardizem) 30 mg PO TID [facility] Last Admin: 01/01/17 12:04 Dose: 30 mg Metoprolol Tartrate (Lopressor) 12.5 mg PO BID [facility] Last Admin: 01/01/17 09:00 Dose: Not Given Results - Vital Signs Recent Vital Signs: Last Vital Signs Temp 97.9 F 01/01/17 12:20 Pulse 118 H 01/01/17 12:20 Resp 18 01/01/17 12:20 BP 143/77 01/01/17 12:20 Pulse Ox 96 06/26/17 12:20 - Labs Result Diagrams: 12/31/16 18:45 12/31/16 18:25
[2017-01-01 14:13] LABS: PARTIAL THROMBOPLASTIN TIME 28.8 Seconds (25.6-37.1); PROTHROMBIN TIME 11.8 Seconds (9.8-13.1)
--- NOTE | 2017-01-01 18:01 | HP ---
CHIEF COMPLAINT: The patient was found to have normal CAT scan. HISTORY OF PRESENT ILLNESS: This is a 76-year-old female who was admitted from 12/18/2016 to 017 to intensive care unit and regular floor for pericardial effusion leading to pericardial window, after which the patient was transferred to transitional care unit for further optimization where the patient was receiving physical therapy and supportive care and had a followup CAT scan done, which sh owed gross abnormality so the patient was brought to Emergency Room and was admitted for further kenna gement. REVIEW OF SYSTEMS: Positive for generalized malaise, weakness, fatigue, and tiredness. Review of sy stem otherwise is very unreliable as the patient is not a good historian but is negative for headache , dizziness, syncope, loss of consciousness, chest pain, shortness of breath, nausea, vomiting, diarr hea, constipation, any new joint or extremity pain. Review of systems also is positive for skin rash under her breast and part of body. PAST MEDICAL HISTORY: Significant for pericardial effusion, atrial fibrillation, hypertension. PAST SURGICAL HISTORY: Remarkable for recent pericardial window. PERSONAL HISTORY: The patient is currently a nonsmoker, nondrinker, no substance abuse. MEDICATIONS: The patient is on multiple medications, which is as per reconciliation sheet, which was reviewed in order. ALLERGIES: The patient is not allergic to any medication. FAMILY HISTORY: Noncontributory. PHYSICAL EXAMINATION: GENERAL: Chronically sick looking, frail elderly female in no acute distress. VITAL SIGNS: Temperature 97.9, pulse 118, respirations 18, blood pressure 143/77. HEENT: Pupils reacting to light. No JVD, no thyromegaly, no lymphadenopathy, no nystagmus. Normocep halic, atraumatic skull. HEART: S1, S2 normal, regular. No significant murmur, gallop or rub is heard. The patient has stap les in place. The patient also has under the breast tinea cruris. LUNGS: Shows good bilateral air exchange. No rales or rhonchi. ABDOMEN: Soft, nontender, no organomegaly, no fluid. Bowel sounds are plus. EXTREMITIES: No edema, no calf swelling, no tenderness. No acute ischemia. CENTRAL NERVOUS SYSTEM: Essentially unchanged from patient's usual exam and there is no sign of any acute gross focal motor or sensory neurological deficit. DIAGNOSTIC DATA: Available diagnostic data reviewed. WBC , hemoglobin 12, hematocrit 37.4, tamra telets 172. Sodium 140, potassium 4.2, chloride 104, bicarbonate 29, BUN 15, creatinine 0.8. BNP le nori is 9400. PT 11.8, PTT 28.8. Chest x-ray shows right pericardial some circumscribed opacity, pos sibly related to postoperative collection. CAT scan that was done 2 days ago showed persistent peric ardial effusion, left upper lung mass, left ventricular lesion, bilateral pleural effusion. ADMITTING IMPRESSION: Pericardial effusion, atrial fibrillation, hypertension. PLAN: As ordered. Case and plan discussed with patient. Dillon Greco MD cc: [phone] TT: 01/01/2017 18:00:39 ln
--- NOTE | 2017-01-01 19:02 | CARD ---
APPROVED REPORT EXAM: Two-dimensional and M-mode echocardiogram with Doppler and color Doppler. Other Information Quality : FairRhythm : NSR Technically limited study due to Poor Parasternal echo window. INDICATION Pericardial Effusion Post Pericardial Window Mitral Valve E/A ratio0.0 TDI E/Lateral E'0.0E/Medial E'0.0 LEFT VENTRICLE The left ventricle is normal size. The left ventricular function is normal. The left ventricular ejection fraction is 60% There is normal LV segmental wall motion. Transmitral Doppler flow pattern is Grade I-abnormal relaxation pattern. No left ventricle thrombus noted on this study. There is no ventricular septal defect visualized. There is no left ventricular aneurysm. There is no mass noted in the left ventricle. RIGHT VENTRICLE The right ventricle is normal size. There is normal right ventricular wall thickness. The right ventricular systolic function is normal. ATRIA The left atrium size is normal. The right atrium size is normal. The interatrial septum is intact with no evidence for an atrial septal defect. AORTIC VALVE The aortic valve is moderately sclerotic. No aortic regurgitation is present. There is no aortic valvular stenosis. There is no aortic valvular vegetation. MITRAL VALVE The mitral valve is normal in structure and function. There is no evidence of mitral valve prolapse. There is no mitral valve stenosis. Mitral regurgitation is mild. TRICUSPID VALVE The tricuspid valve is normal in structure and function. There is no tricuspid valve regurgitation noted. There is no tricuspid valve prolapse or vegetation. There is no tricuspid valve stenosis. PULMONIC VALVE The pulmonary valve is normal in structure and function. There is no pulmonic valvular regurgitation. There is no pulmonic valvular stenosis. GREAT VESSELS The aortic root is normal in size. The ascending aorta is normal in size. The IVC is normal in size and collapses >50% with inspiration. PERICARDIAL EFFUSION Trace pericardial effusion There is no pleural effusion. <Conclusion> Trace Pericardial effusion s/p Pericardial Window Limited Study no subcostal views Normal LV systolic function Aortic Valve Sclerosis Mild Mitral Regurgitation
--- NOTE | 2017-01-01 19:22 | CARD ---
APPROVED REPORT EKG Measurement Heart [id number] <Conclusion> Sinus rhythm with frequent premature ventricular complexes Low voltage QRS ST & T wave abnormality, consider inferolateral ischemia Abnormal ECG
--- NOTE | 2017-01-02 08:46 | CP.PCM.CON ---
History of Present Illness - History of Present Illness History of Present Illness: Psychiatry consult Patient is a poor historian, unable to obtain much pertinent history from patient. History obtained from the chart. CC: I dont know what Im here HPI: 76F with PMH of afib, new onset dementia, HTN, and HLD with extensive tobacco smoking history, s/p pericardial window procedure for ronaldo-cardial effusion with cardiac tamponade. Patient recovered well from the procedure and was transferred to the TCU but developed worsening SOB over the weekend and was re-admitted. Denies depression/anxiety/ray/hallucinations/delusions. PPHx: Denies any past psychiatric history PMH: Afib, dementia, HTN, HLD PSH: hysterectomy, pericardial window All: NKDA Social: 2PPD for several decades, current smoker. Lives at home by herself; has 4 children. . MSE: A + O x 2 (not oriented to date), calm/cooperative, speech soft, mood "okay ", affect- broad, thought process- coherent, thought content- no delusions, NO hallucinations/delusions. NO SI/HI. Insight/judgment- limited. Impulse control -good Impression: 76F with PMH of afib, new onset dementia, HTN, and HLD with extensive tobacco smoking history, s/p pericardial window procedure for ronaldo- cardial effusion with cardiac tamponade, re-admitted for worsening SOB. Patient likely experiencing periods of delirium in addition to dementia. No acute psychiatric issues at this time. -No acute psychiatric admission indicated -No acute psychotropic medications needed -Avoid benzodiazepines as they are likely to worsen her confusion -If patient has late-day confusion (sun-downing), can give Seroquel 25 mg PO Daily @1700 or Risperdal 0.5 mg PO Daily@1700 -For acute agitation can give Haldol 0.5 mg q8hr PO or IM -Re-consult w/ further questions Past Patient History - Past Medical History & Family History Past Medical History?: Yes Past Family History: Reviewed and not pertinent - Past Social History Smoking Status: Heavy Smoker > 10 Cigarettes Daily Home Situation {Lives}: Alone - CARDIAC Hx Atrial Fibrillation: Yes Hx Hypercholesterolemia: Yes Hx Hypertension: Yes Other/Comment: pericardial effusion - PULMONARY Hx Respiratory Disorders: No - NEUROLOGICAL Hx Neurological Disorder: No - HEENT Hx HEENT Problems: No - RENAL Hx Chronic Kidney Disease: No - ENDOCRINE/METABOLIC Hx Endocrine Disorders: No - HEMATOLOGICAL/ONCOLOGICAL Hx Blood Disorders: No Hx Blood Transfusions: No - INTEGUMENTARY Hx Dermatological Problems: No - MUSCULOSKELETAL/RHEUMATOLOGICAL Hx Falls: No - GASTROINTESTINAL Hx Gastrointestinal Disorders: No - GENITOURINARY/GYNECOLOGICAL Hx Genitourinary Disorders: No - PSYCHIATRIC Hx Substance Use: No - SURGICAL HISTORY Hx Surgeries: Yes Hx Cardiac Catheterization: Yes Other/Comment: pericardial window for ronaldo-cardial fluid drainage - ANESTHESIA Hx Anesthesia: Yes Hx Anesthesia Reactions: No Hx Malignant Hyperthermia: No Meds Allergies/Adverse Reactions: Allergies Allergy/AdvReac Type Severity Reaction Status Date / Time No Known Allergies Allergy Verified 12/27/16 18:13 - Medications Medications: Current Medications Diltiazem HCl (Cardizem) 30 mg PO TID [facility] Last Admin: 01/01/17 17:12 Dose: 30 mg Haloperidol Lactate (Haldol) 1 mg IM Q6 PRN PRN Reason: Agitation Last Admin: 01/01/17 17:32 Dose: 1 mg Metoprolol Tartrate (Lopressor) 12.5 mg PO BID [facility] Last Admin: 01/01/17 17:12 Dose: 12.5 mg Nystatin (Nystop Topical Powder) 1 applic TOP TID [facility] Last Admin: 01/01/17 20:50 Dose: 1 applic Results - Vital Signs Recent Vital Signs: Last Vital Signs Temp 97.7 F 01/02/17 08:07 Pulse 79 01/02/17 08:28 Resp 18 01/02/17 08:07 BP 120/85 01/02/17 08:07 Pulse Ox 98 01/02/17 08:07 - Labs Result Diagrams: 12/31/16 18:45 12/31/16 18:25 Labs: Laboratory Results - last 24 hr 01/01/17 12:30 PT 11.8 INR 1.0 APTT 28.8
--- NOTE | 2017-01-02 10:11 | CP.PCM.PN ---
Subjective - Date & Time of Evaluation Date of Evaluation: 01/02/17 Time of Evaluation: 10:09 - Subjective Subjective: Thoracic Surgery - Dr. Solo Pt S&E. NAEO. Pt states she still has mild SOB on occasion. She denies any other complaints. No chest pain. Incision C/D/I. Objective - Vital Signs/Intake and Output Vital Signs (last 24 hours): Temp Pulse Resp BP Pulse Ox 97.7 F 79 18 120/85 98 01/02/17 08:07 01/02/17 08:55 01/02/17 08:07 01/02/17 08:55 01/02/17 08:07 Intake and Output: 01/02/17 01/02/17 06:59 18:59 Intake Total 100 Output Total 400 Balance -300 - Medications Medications: Current Medications Diltiazem HCl (Cardizem) 30 mg PO TID [facility] Last Admin: 01/02/17 08:54 Dose: 30 mg Haloperidol Lactate (Haldol) 1 mg IM Q6 PRN PRN Reason: Agitation Last Admin: 01/01/17 17:32 Dose: 1 mg Metoprolol Tartrate (Lopressor) 12.5 mg PO BID [facility] Last Admin: 01/02/17 08:55 Dose: 12.5 mg Nystatin (Nystop Topical Powder) 1 applic TOP TID [facility] Last Admin: 01/02/17 08:55 Dose: 1 applic - Labs Labs: PT 11.8 Seconds (9.8-13.1) 01/01/17 12:30 INR 1.0 (0.9-1.2) 01/01/17 12:30 APTT 28.8 Seconds (25.6-37.1) 01/01/17 12:30 - Constitutional Appears: No Acute Distress - Head Exam Head Exam: ATRAUMATIC, NORMAL INSPECTION, NORMOCEPHALIC - Eye Exam Eye Exam: Normal appearance - Respiratory Exam Respiratory Exam: NORMAL BREATHING PATTERN. absent: Respiratory Distress - Cardiovascular Exam Cardiovascular Exam: REGULAR RHYTHM - Neurological Exam Neurological Exam: Alert, Awake - Skin Skin Exam: Dry, Intact Assessment and Plan - Assessment and Plan (Free Text) Assessment: 76F POD#14 s/p pericardial window, readmitted from TCU for SOB -Echo shows trace pericardial effusion s/p window -No further surgical intervention planned -Clear for discharge from surgical standpoint DW DR Germania Cheek PGY2
--- NOTE | 2017-01-02 21:33 | CP.PCM.PN ---
Subjective - Date & Time of Evaluation Date of Evaluation: 01/02/17 Time of Evaluation: 13:00 - Subjective Subjective: no chest pain or dizziness Objective - Vital Signs/Intake and Output Vital Signs (last 24 hours): Temp Pulse Resp BP Pulse Ox 97.9 F 60 18 112/72 98 01/02/17 20:03 01/02/17 20:03 01/02/17 20:03 01/02/17 20:03 01/02/17 20:03 Intake and Output: 01/02/17 01/03/17 18:59 06:59 Intake Total 250 Balance 250 - Medications Medications: Current Medications Diltiazem HCl (Cardizem) 30 mg PO TID [facility] Last Admin: 01/02/17 16:44 Dose: 30 mg Haloperidol Lactate (Haldol) 1 mg IM Q6 PRN PRN Reason: Agitation Last Admin: 01/02/17 18:18 Dose: 1 mg Metoprolol Tartrate (Lopressor) 12.5 mg PO BID [facility] Last Admin: 01/02/17 16:39 Dose: 12.5 mg Nystatin (Nystop Topical Powder) 1 applic TOP TID [facility] Last Admin: 01/02/17 16:43 Dose: 1 applic Quetiapine Fumarate (Seroquel) 25 mg PO HS [facility] Last Admin: 01/02/17 21:23 Dose: Not Given - Labs Labs: PT 11.8 Seconds (9.8-13.1) 01/01/17 12:30 INR 1.0 (0.9-1.2) 01/01/17 12:30 APTT 28.8 Seconds (25.6-37.1) 01/01/17 12:30 - Additional Findings Additional findings: V/s stable Chest , diminished BS over bases Heart S1S2 reg Abd. soft Ext . no edema Assessment and Plan - Assessment and Plan (Free Text) Plan: Chest CT findings were discussed at [facility] with Dr. Moon and with the radiologist according to the radiologist, the mass i most likely fluid collection. Chest MRI may not be of any furter help and Cardiac MRI is not available Continue current management NB. Dictation system is down and that limited my note
--- NOTE | 2017-01-03 13:24 | CP.PCM.PN ---
Subjective - Date & Time of Evaluation Date of Evaluation: 01/03/17 Time of Evaluation: 13:21 - Subjective Subjective: No chest pain or dizziness Objective - Vital Signs/Intake and Output Vital Signs (last 24 hours): Temp Pulse Resp BP Pulse Ox 97.6 F 71 18 113/59 L 95 01/03/17 12:00 01/03/17 12:00 01/03/17 12:00 01/03/17 12:00 01/03/17 12:00 Intake and Output: 01/03/17 01/03/17 06:59 18:59 Intake Total 200 Balance 200 - Medications Medications: Current Medications Diltiazem HCl (Cardizem) 30 mg PO TID [facility] Last Admin: 01/03/17 10:06 Dose: 30 mg Metoprolol Tartrate (Lopressor) 12.5 mg PO BID [facility] Last Admin: 01/03/17 10:08 Dose: 12.5 mg Nystatin (Nystop Topical Powder) 1 applic TOP TID [facility] Last Admin: 01/03/17 10:09 Dose: 1 applic Quetiapine Fumarate (Seroquel) 25 mg PO HS [facility] Last Admin: 01/02/17 21:23 Dose: Not Given - Labs Labs: PT 11.8 Seconds (9.8-13.1) 01/01/17 12:30 INR 1.0 (0.9-1.2) 01/01/17 12:30 APTT 28.8 Seconds (25.6-37.1) 01/01/17 12:30 - Head Exam Head Exam: NORMAL INSPECTION - Eye Exam Eye Exam: Normal appearance - Neck Exam Neck Exam: Normal Inspection - Respiratory Exam Respiratory Exam: Rhonchi - Cardiovascular Exam Cardiovascular Exam: REGULAR RHYTHM - GI/Abdominal Exam GI & Abdominal Exam: Normal Bowel Sounds - Extremities Exam Extremities Exam: Pedal Edema Assessment and Plan - Assessment and Plan (Free Text) Assessment: S/P pericardial window for tamponade Paroxysmal A Fib AMS ? dementia Continue current meds I will further discuss case with Dr. Hopson and Dr. Moon
--- NOTE | 2017-01-03 15:45 | CP.PCM.DIS ---
Provider - Provider Date of Admission: 12/31/16 20:18 Attending physician: Dillon Greco MD Hospital Course - Lab Results Lab Results: Most Recent Lab Values WBC 7.9 K/uL (4.8-10.8) 12/31/16 18:45 RBC 4.33 Mil/uL (3.80-5.20) 12/31/16 18:45 Hgb 12.0 g/dL (12.0-16.0) 12/31/16 18:45 Hct 37.4 % (34.0-47.0) 12/31/16 18:45 MCV 86.4 fl (81.0-99.0) 12/31/16 18:45 MCH 27.8 pg (27.0-31.0) 12/31/16 18:45 MCHC 32.1 g/dL (33.0-37.0) L 12/31/16 18:45 RDW 15.8 % (11.5-14.5) H 12/31/16 18:45 Plt Count 172 K/uL (130-400) 12/31/16 18:45 MPV 9.3 fl (7.2-11.7) 12/31/16 18:45 Neut % (Auto) 76.6 % (50.0-75.0) H 12/31/16 18:45 Lymph % (Auto) 10.2 % (20.0-40.0) L 12/31/16 18:45 [place] % (Auto) 11.7 % (0.0-10.0) H 12/31/16 18:45 Eos % (Auto) 0.9 % (0.0-4.0) 12/31/16 18:45 Baso % (Auto) 0.6 % (0.0-2.0) 12/31/16 18:45 Neut # 6.0 K/uL (1.8-7.0) 12/31/16 18:45 Lymph # 0.8 K/uL (1.0-4.3) L 12/31/16 18:45 [place] # 0.9 K/uL (0.0-0.8) H 12/31/16 18:45 Eos # 0.1 K/uL (0.0-0.7) 12/31/16 18:45 Baso # 0.0 K/uL (0.0-0.2) 12/31/16 18:45 PT 11.8 Seconds (9.8-13.1) 01/01/17 12:30 INR 1.0 (0.9-1.2) 01/01/17 12:30 APTT 28.8 Seconds (25.6-37.1) 01/01/17 12:30 Sodium 140 mmol/l (132-148) 12/31/16 18:25 Potassium 4.2 MMOL/L (3.6-5.0) 12/31/16 18:25 Chloride 105 mmol/L (98-107) 12/31/16 18:25 Carbon Dioxide 29 mmol/L (22-30) 12/31/16 18:25 Anion Gap 11 (10-20) 12/31/16 18:25 BUN 15 mg/dl (7-17) 12/31/16 18:25 Creatinine 0.8 mg/dL (0.7-1.2) 12/31/16 18:25 Est GFR ( Amer) > 60 12/31/16 18:25 Est GFR (Non-Af Amer) > 60 12/31/16 18:25 Random Glucose 152 mg/dL (65-105) H 12/31/16 18:25 Calcium 8.8 mg/dL (8.4-10.2) 12/31/16 18:25 Total Bilirubin 1.2 mg/dl (0.2-1.3) 12/31/16 18:25 AST 26 U/L (14-36) 12/31/16 18:25 ALT 48 U/L (9-52) 12/31/16 18:25 Alkaline Phosphatase 121 U/L (38-126) 12/31/16 18:25 Troponin I 0.1050 ng/mL (0.00-0.120) 12/31/16 18:25 NT-Pro-B Natriuret Pep 9400 pg/ml (0-900) H 12/31/16 18:25 Total Protein 6.2 G/DL (6.3-8.2) L 12/31/16 18:25 Albumin 3.2 g/dL (3.5-5.0) L 12/31/16 18:25 Globulin 3.0 gm/dL (2.2-3.9) 12/31/16 18:25 Albumin/Globulin Ratio 1.1 (1.0-2.1) 12/31/16 18:25 Discharge Exam - Head Exam Head Exam: NORMAL INSPECTION Discharge Plan - Follow Up Plan Condition: STABLE Disposition: HOME/ ROUTINE
--- NOTE | 2017-01-03 20:27 | CP.PCM.PN ---
Subjective - Date & Time of Evaluation Date of Evaluation: 01/02/17 Time of Evaluation: 13:00 - Subjective Subjective: Less SOB Objective - Vital Signs/Intake and Output Vital Signs (last 24 hours): Temp Pulse Resp BP Pulse Ox 98.2 F 56 L 20 94/55 L 94 L 01/03/17 19:38 01/03/17 19:38 01/03/17 19:38 01/03/17 19:38 01/03/17 19:38 Intake and Output: 01/03/17 01/04/17 18:59 06:59 Intake Total 500 Balance 500 - Medications Medications: Current Medications Diltiazem HCl (Cardizem) 30 mg PO TID [facility] Last Admin: 01/03/17 18:09 Dose: 30 mg Metoprolol Tartrate (Lopressor) 12.5 mg PO BID [facility] Last Admin: 01/03/17 16:34 Dose: 12.5 mg Nystatin (Nystop Topical Powder) 1 applic TOP TID [facility] Last Admin: 01/03/17 16:34 Dose: 1 applic Quetiapine Fumarate (Seroquel) 25 mg PO HS [facility] Last Admin: 01/02/17 21:23 Dose: Not Given - Labs Labs: PT 11.8 Seconds (9.8-13.1) 01/01/17 12:30 INR 1.0 (0.9-1.2) 01/01/17 12:30 APTT 28.8 Seconds (25.6-37.1) 01/01/17 12:30 - Head Exam Head Exam: ATRAUMATIC - Eye Exam Eye Exam: PERRL - ENT Exam ENT Exam: Mucous Membranes Moist - Neck Exam Neck Exam: Full ROM - Respiratory Exam Respiratory Exam: NORMAL BREATHING PATTERN - Cardiovascular Exam Cardiovascular Exam: REGULAR RHYTHM - GI/Abdominal Exam GI & Abdominal Exam: Normal Bowel Sounds - Neurological Exam Neurological Exam: Oriented x3 Assessment and Plan - Assessment and Plan (Free Text) Assessment: Pleural effusion S/P pericardial window for cardiac tamponade Plan: Follow recommendations of cardiology and C/T surgery Pulmonary recommendations.
--- NOTE | 2017-01-04 09:24 | PQF GENQUE ---
Dr. Hopson, 2 (two) queries as follows: (1) Etiology of the Pleural Effusion if known after the work up is completed (2) Principal diagnosis(es) for this encounter? OR:Unable to determine H and P: PMH: pericardial effusion, atrial fibrillation, hypertension. Impression: Pericardial effusion, atrial fibrillation, hypertension. 01/03:progress note: attending: Impression:Pleural effusion --S/P pericardial window for cardiac tamponade This form is a permanent part of the medical record Clarification of your documentation is requested to better reflect the severity of illness and intensity of treatment of your patient. Indicators present [] Specify: [] [] Specify: [] [] Specify: [] [] Specify: [] Location in the medical record that reflects the above clinical findings: [] Treatment Provided: [] PHYSICIAN'S RESPONSE Based on your medical judgment of the clinical indicators outlined above please clarify the following: [] Practitioner response [] If unable to determine, please check the box, sign and date. Present On Admission (POA) Indicator: [] Present at the time of admission [] Not present at the time of admission [] Clinically Undetermined In responding to this query, please exercise your independent professional judgment. The fact that a question is asked does not imply that any particular answer is desired or expected. Thank you for your clarification on this documentation. If you have any questions please call. * Thank you, Le Asher RN BSN ext. #[phone] MTDD
--- NOTE | 2017-01-04 11:10 | CP.PCM.CON ---
History of Present Illness - History of Present Illness History of Present Illness: This 76 year old female, a current cigarette smoker, was initially admitted about 2.5 weeks ago with cardiac tamponade and underwent emergent surgery to create a pericardial window. Grossly bloody fluid was removed and the patient did recover from the surgery uneventfully. All studies requested on the fluid and path reports on the tissue did not clearly identify the etiology of the pericardial effusion. She is a poor historian and her medical record was used to gather information. I also spoke to her attending physician for further details. She has smoked up to 2 PPD cigarettes since her youth. She does recall and episode of pneumonia in the past, but cannot remember when. She denies any past history of asthma or tuberculosis. Her CT scan presently shows bilateral pleural effusions with atelectasis of the RLL, but also shows a nodular lesion in the lower portion of the GANESH posteriorly. Review of Systems - Review of Systems Systems not reviewed;Unavailable: Dementia Past Patient History - Past Medical History & Family History Past Medical History?: Yes Past Family History: Reviewed and not pertinent - Past Social History Smoking Status: Heavy Smoker > 10 Cigarettes Daily Home Situation {Lives}: Alone - CARDIAC Hx Hypercholesterolemia: Yes Hx Hypertension: Yes - PULMONARY Hx Pneumonia: Yes - NEUROLOGICAL Hx Neurological Disorder: No - HEENT Hx HEENT Problems: No - RENAL Hx Chronic Kidney Disease: No - ENDOCRINE/METABOLIC Hx Endocrine Disorders: No - HEMATOLOGICAL/ONCOLOGICAL Hx Blood Disorders: No Hx Blood Transfusions: No - INTEGUMENTARY Hx Dermatological Problems: No - MUSCULOSKELETAL/RHEUMATOLOGICAL Hx Musculoskeletal Disorders: No Hx Falls: No - GASTROINTESTINAL Hx Gastrointestinal Disorders: No - GENITOURINARY/GYNECOLOGICAL Hx Genitourinary Disorders: No - PSYCHIATRIC Hx Psychophysiologic Disorder: No Hx Substance Use: No - SURGICAL HISTORY Hx Surgeries: Yes Hx Cardiac Catheterization: Yes Other/Comment: pericardial window for ronaldo-cardial fluid drainage - ANESTHESIA Hx Anesthesia: Yes Hx Anesthesia Reactions: No Hx Malignant Hyperthermia: No Meds Allergies/Adverse Reactions: Allergies Allergy/AdvReac Type Severity Reaction Status Date / Time No Known Allergies Allergy Verified 12/27/16 18:13 - Medications Medications: Current Medications Diltiazem HCl (Cardizem) 30 mg PO TID [facility] Last Admin: 01/04/17 08:40 Dose: 30 mg Metoprolol Tartrate (Lopressor) 12.5 mg PO BID [facility] Last Admin: 01/04/17 08:39 Dose: 12.5 mg Nystatin (Nystop Topical Powder) 1 applic TOP TID [facility] Last Admin: 01/04/17 08:39 Dose: 1 applic Quetiapine Fumarate (Seroquel) 25 mg PO HS [facility] Last Admin: 01/03/17 21:53 Dose: 25 mg Physical Exam - Additional Findings Additional findings: Thin, chronically ill appearing female, cooperative with exam. + dependant edema both ankles, no calf tenderness, no cyanosis. No palpable lymphadenopathy. Pharynx is pink, MM moist, no exudate. Nares patent bilaterally, no bleeding. Neck is supple and trachea midline, no JVD. Dullness to percussion of both lung bases. Breath sounds are very much diminished bilaterally. No audible wheezes or rales. Egophony at the lung bases R>L. Heart sounds are very distant, rhythm is regular. Abdomen is soft and non-tender with normal BS. Results - Vital Signs Recent Vital Signs: Last Vital Signs Temp 97.7 F 01/04/17 08:00 Pulse 67 01/04/17 08:40 Resp 18 01/04/17 08:40 BP 133/87 01/04/17 08:40 Pulse Ox 97 01/04/17 08:40 - Labs Result Diagrams: 12/31/16 18:45 12/31/16 18:25 Assessment & Plan (1) Pericardial effusion with cardiac tamponade Status: Resolved Priority: High (2) Hemorrhagic pericardial effusion Status: Acute Priority: High (3) Pulmonary nodule, left Status: Acute Priority: High (4) Pleural effusion due to another disorder Status: Acute Priority: High (5) Atelectasis Status: Acute Priority: High - Assessment and Plan (Free Text) Plan: In this situation a malignant process seems a very likely possibility, and the lung lesion, while small, in a cigarette smoker is very suspicious. I will speak with her and her family about possibly performing a flexible bronchoscopy. The lesion is quite small and peripheral in location so the yield may not be great without a navigational procedure which is not available here at this time, but routine endoscopy would also allow for evaluation of the bronchial tree for any occult abnormalities. In the interim I will ask for IR to evaluate her for a thoracentesis to at least alleviate some of her respiratory difficulty. - Date & Time Date: 01/04/17 Time: 11:28
--- NOTE | 2017-01-04 11:48 | US ---
PROCEDURE: Bilateral lower extremity venous duplex Doppler. HISTORY: R/O DVT COMPARISON: None available. TECHNIQUE: Bilateral common femoral, superficial femoral, popliteal and posterior tibial veins were evaluated. Flow was assessed with color Doppler, compressibility, assessment of phasic flow and augmentation response. FINDINGS: COMMON FEMORAL VEIN: Right CFV: Unremarkable. Left CFV: Unremarkable. SUPERFICIAL FEMORAL VEIN: Right SFV: Unremarkable. Left SFV: Unremarkable. POPLITEAL VEIN: Right Popliteal: Unremarkable. Left Popliteal: Unremarkable. POSTERIOR TIBIAL VEIN: Right PTV: Unremarkable. Left PTV: Unremarkable. OTHER FINDINGS: None. IMPRESSION: No evidence of deep venous thrombosis.
--- NOTE | 2017-01-04 11:57 | CARD ---
APPROVED REPORT EKG Measurement Heart [id number] <Conclusion> Sinus rhythm with sinus arrhythmia with occasional premature ventricular complexes T wave abnormality, consider inferolateral ischemia Abnormal ECG
--- NOTE | 2017-01-04 11:59 | CARD ---
APPROVED REPORT EKG Measurement Heart [id number] <Conclusion> Sinus rhythm with sinus arrhythmia with frequent premature ventricular complexes Cannot rule out Anterior infarct, age undetermined ST & T wave abnormality, consider inferolateral ischemia Abnormal ECG
--- NOTE | 2017-01-04 12:16 | CP.PCM.PN ---
Subjective - Date & Time of Evaluation Date of Evaluation: 01/04/17 Time of Evaluation: 12:14 - Subjective Subjective: No chest pain or cough Objective - Vital Signs/Intake and Output Vital Signs (last 24 hours): Temp Pulse Resp BP Pulse Ox 97.7 F 67 18 133/87 97 01/04/17 08:00 01/04/17 08:40 01/04/17 08:40 01/04/17 08:40 01/04/17 08:40 Intake and Output: 01/04/17 01/04/17 06:59 18:59 Intake Total 200 Balance 200 - Medications Medications: Current Medications Diltiazem HCl (Cardizem) 30 mg PO TID [facility] Last Admin: 01/04/17 08:40 Dose: 30 mg Metoprolol Tartrate (Lopressor) 12.5 mg PO BID [facility] Last Admin: 01/04/17 08:39 Dose: 12.5 mg Nystatin (Nystop Topical Powder) 1 applic TOP TID [facility] Last Admin: 01/04/17 08:39 Dose: 1 applic Quetiapine Fumarate (Seroquel) 25 mg PO HS [facility] Last Admin: 01/03/17 21:53 Dose: 25 mg - Labs Labs: PT 11.8 Seconds (9.8-13.1) 01/01/17 12:30 INR 1.0 (0.9-1.2) 01/01/17 12:30 APTT 28.8 Seconds (25.6-37.1) 01/01/17 12:30 - Head Exam Head Exam: NORMOCEPHALIC - Eye Exam Eye Exam: Normal appearance - ENT Exam ENT Exam: Normal Exam - Neck Exam Neck Exam: Normal Inspection - Respiratory Exam Respiratory Exam: Rhonchi - Cardiovascular Exam Cardiovascular Exam: REGULAR RHYTHM - Extremities Exam Extremities Exam: Pedal Edema Assessment and Plan - Assessment and Plan (Free Text) Assessment: s/p pericadial window ? Lung mass R/O DVT Paroxysmal A Fin Bilateral pleural effusion Plan: Discussed at length with PMD Venous doppler of LE Pulmonary and Dermatology consult Cont Diltiazem HCl (Cardizem) 30 mg PO TID [facility] Last Admin: 01/04/17 08:40 Dose: 30 mg Metoprolol Tartrate (Lopressor) 12.5 mg PO BID [facility] Last Admin: 01/04/17 08:39 Dose: 12.5 mg Nystatin (Nystop Topical Powder) 1 applic TOP TID [facility] Last Admin: 01/04/17 08:39 Dose: 1 applic Quetiapine Fumarate (Seroquel) 25 mg PO [facility] Last Admin: 01/03/17 21:53 Dose: 25 mg
[2017-01-04] MEDS ORDERED: Lidocaine 1% Inj (20ml) ONE (15:26)
--- NOTE | 2017-01-04 15:46 | PCM.SURG1 ---
Surgeon's Initial Post Op Note - Surgeon's Notes Surgeon: Matthew Hurt MD Machine Room Operator: NONE Type of Anesthesia: Local Pre-Operative Diagnosis: Right pleural effusion Operative Findings: US showed moderate right effusion. Post-Operative Diagnosis: Right pleural effusion Operation Performed: US guided right thoracentesis. Specimen/Specimens Removed: 400 cc of serosanguinous fluid Estimated Blood Loss: EBL {In ML}: 0 Blood Products Given: N/A Drains Used: No Drains Post-Op Condition: Fair Date of Surgery/Procedure: 01/04/17 Time of Surgery/Procedure: 15:40
[2017-01-04 16:50] LABS: TOTAL PROTEIN,BODY FLUID 2.3 g/dL (NONE ESTABLISHED)
--- NOTE | 2017-01-04 22:39 | CP.PCM.PN ---
Subjective - Date & Time of Evaluation Date of Evaluation: 01/04/17 Time of Evaluation: 11:00 - Subjective Subjective: Still has exertional SOB Objective - Vital Signs/Intake and Output Vital Signs (last 24 hours): Temp Pulse Resp BP Pulse Ox 98.2 F 89 20 93/55 L 97 01/04/17 19:40 01/04/17 19:40 01/04/17 19:40 01/04/17 19:40 01/04/17 19:40 Intake and Output: 01/04/17 01/05/17 18:59 06:59 Intake Total 400 Balance 400 - Medications Medications: Current Medications Diltiazem HCl (Cardizem) 30 mg PO TID [facility] Last Admin: 01/04/17 17:03 Dose: 30 mg Metoprolol Tartrate (Lopressor) 12.5 mg PO BID [facility] Last Admin: 01/04/17 17:02 Dose: 12.5 mg Nystatin (Nystop Topical Powder) 1 applic TOP TID [facility] Last Admin: 01/04/17 17:03 Dose: 1 applic Quetiapine Fumarate (Seroquel) 25 mg PO HS [facility] Last Admin: 01/03/17 21:53 Dose: 25 mg - Labs Labs: PT 11.8 Seconds (9.8-13.1) 01/01/17 12:30 INR 1.0 (0.9-1.2) 01/01/17 12:30 APTT 28.8 Seconds (25.6-37.1) 01/01/17 12:30 - Head Exam Head Exam: ATRAUMATIC, NORMOCEPHALIC - Eye Exam Eye Exam: PERRL Pupil Exam: PERRL - ENT Exam ENT Exam: Mucous Membranes Moist - Neck Exam Neck Exam: Full ROM - Respiratory Exam Respiratory Exam: Clear to Ausculation Bilateral, NORMAL BREATHING PATTERN - Cardiovascular Exam Cardiovascular Exam: REGULAR RHYTHM - GI/Abdominal Exam GI & Abdominal Exam: Soft, Normal Bowel Sounds - Back Exam Back Exam: Full ROM - Neurological Exam Neurological Exam: Oriented x3 - Skin Additional comments: exocriated , chest wall skin with crusting . Assessment and Plan - Assessment and Plan (Free Text) Assessment: Pleural effusion S/P pericardial effusion, with tamponad , s/p pericardial window Plan: Pulmonary consult Dermatology consult and follow their recommendation
--- NOTE | 2017-01-05 09:03 | RAD ---
PROCEDURE: CHEST RADIOGRAPH, 1 VIEW HISTORY: Status post right thoracentesis. COMPARISON: 12/31/2016 FINDINGS: LUNGS: Biapical pleural thickening with upper lobe granulomatous changes. Left basilar airspace opacity. Small bilateral pleural effusions. Circumscribed opacity adjacent to the right heart border of uncertain significance. This may reflect a postoperative collection as demonstrated on recent CT chest. Correlation with chest CT may be helpful if clinically indicated. PLEURA: As above. CARDIOVASCULAR: Enlarged ectatic aorta. Cardiomegaly. OSSEOUS STRUCTURES: Degenerative changes in the spine and shoulders. VISUALIZED UPPER ABDOMEN: Normal. OTHER FINDINGS: None. IMPRESSION: Biapical pleural thickening with upper lobe granulomatous changes. Left basilar airspace opacity. Small bilateral pleural effusions. Circumscribed opacity adjacent to the right heart border of uncertain significance. This may reflect a postoperative collection as demonstrated on recent CT chest. Correlation with chest CT may be helpful if clinically indicated.
--- NOTE | 2017-01-05 09:25 | CP.PCM.PN ---
Subjective - Date & Time of Evaluation Date of Evaluation: 01/05/17 Time of Evaluation: 09:15 - Subjective Subjective: Interim events reviewed. Thoracentesis yesterday with removal of 400ml's serosanguinous fluid. Fluid chemistries show a low protein, but high LDH and normal glucose. Fluid culture and cytology are pending. Followup CXR shows RLL remains atelectatic. Physical exam reveals some improvement in breath sounds in the right lower chest , but still decreased. Dry rales vs rub heard in the right base. No wheezes or bronchial breath sounds. She is awake and cooperative, but appears confused. She will need flexible bronchoscopy. She is uncertain if she wants to proceed with this procedure or "wait a while". I tried again to reach her son, unsuccessfully. I can book a tentative time for bronchoscopy just to reserve the time slot. If I cannot reach her son, or if she requests not to have the test, than it can be cancelled. I do feel there is a very real possibility that this presentation represents neoplastic disease. Objective - Vital Signs/Intake and Output Vital Signs (last 24 hours): Temp Pulse Resp BP Pulse Ox 97.8 F 74 18 122/80 95 01/05/17 08:00 01/05/17 09:09 01/05/17 08:00 01/05/17 08:00 01/05/17 08:00 Intake and Output: 01/04/17 01/05/17 23:59 11:59 Intake Total 400 Balance 400 - Medications Medications: Current Medications Diltiazem HCl (Cardizem) 30 mg PO TID [facility] Last Admin: 01/05/17 09:09 Dose: 30 mg Metoprolol Tartrate (Lopressor) 12.5 mg PO BID [facility] Last Admin: 01/05/17 09:10 Dose: 12.5 mg Nystatin (Nystop Topical Powder) 1 applic TOP TID [facility] Last Admin: 01/05/17 09:10 Dose: 1 applic Quetiapine Fumarate (Seroquel) 25 mg PO HS [facility] Last Admin: 01/04/17 23:53 Dose: 25 mg - Labs Labs: PT 11.8 Seconds (9.8-13.1) 01/01/17 12:30 INR 1.0 (0.9-1.2) 01/01/17 12:30 APTT 28.8 Seconds (25.6-37.1) 01/01/17 12:30 Assessment and Plan (1) Pericardial effusion with cardiac tamponade Status: Resolved (2) Hemorrhagic pericardial effusion Status: Acute (3) Pulmonary nodule, left Status: Acute (4) Pleural effusion due to another disorder Status: Acute (5) Atelectasis Status: Acute
--- NOTE | 2017-01-05 10:12 | CP.PCM.PN ---
Subjective - Date & Time of Evaluation Date of Evaluation: 01/05/17 Time of Evaluation: 10:08 - Subjective Subjective: Thoracentesis yesterday with removal of 400ml's serosanguinous fluid. Fluid chemistries show a low protein, but high LDH and normal glucose. Fluid culture and cytology are pending. No chest pain Appears confused Objective - Vital Signs/Intake and Output Vital Signs (last 24 hours): Temp Pulse Resp BP Pulse Ox 97.8 F 74 18 122/80 95 01/05/17 08:00 01/05/17 09:09 01/05/17 08:00 01/05/17 08:00 01/05/17 08:00 - Medications Medications: Current Medications Diltiazem HCl (Cardizem) 30 mg PO TID [facility] Last Admin: 01/05/17 09:09 Dose: 30 mg Metoprolol Tartrate (Lopressor) 12.5 mg PO BID [facility] Last Admin: 01/05/17 09:10 Dose: 12.5 mg Nystatin (Nystop Topical Powder) 1 applic TOP TID [facility] Last Admin: 01/05/17 09:10 Dose: 1 applic Quetiapine Fumarate (Seroquel) 25 mg PO HS [facility] Last Admin: 01/04/17 23:53 Dose: 25 mg - Labs Labs: PT 11.8 Seconds (9.8-13.1) 01/01/17 12:30 INR 1.0 (0.9-1.2) 01/01/17 12:30 APTT 28.8 Seconds (25.6-37.1) 01/01/17 12:30 - Head Exam Head Exam: ATRAUMATIC, NORMAL INSPECTION - Eye Exam Eye Exam: Normal appearance - Respiratory Exam Respiratory Exam: NORMAL BREATHING PATTERN - Cardiovascular Exam Cardiovascular Exam: REGULAR RHYTHM - GI/Abdominal Exam GI & Abdominal Exam: Normal Bowel Sounds - Extremities Exam Extremities Exam: Pedal Edema Assessment and Plan - Assessment and Plan (Free Text) Assessment: S/p Thoracentesis yesterday with removal of 400ml's serosanguinous fluid. S/P pericardia window for tamponade AMS Paroxymal A Fib Plan: Cont. cardizem and lopressor Start SQ heparin 5000 iu BiD
--- NOTE | 2017-01-05 15:56 | CP.PCM.PN ---
Subjective - Date & Time of Evaluation Date of Evaluation: 01/05/17 Time of Evaluation: 10:50 - Subjective Subjective: S/P thoracentesis , less SOB Objective - Vital Signs/Intake and Output Vital Signs (last 24 hours): Temp Pulse Resp BP Pulse Ox 97.3 F L 61 20 138/84 99 01/05/17 15:46 01/05/17 15:46 01/05/17 15:46 01/05/17 15:46 01/05/17 15:46 - Medications Medications: Current Medications Clotrimazole (Lotrimin 1% Cream) 1 applic TOP BID [facility] Diltiazem HCl (Cardizem) 30 mg PO TID [facility] Last Admin: 01/05/17 12:57 Dose: 30 mg Heparin Sodium (Porcine) (Heparin) 5,000 units SC Q12 [facility] PRN Reason: Protocol Last Admin: 01/05/17 12:57 Dose: 5,000 units Metoprolol Tartrate (Lopressor) 12.5 mg PO BID [facility] Last Admin: 01/05/17 09:10 Dose: 12.5 mg Quetiapine Fumarate (Seroquel) 25 mg PO HS [facility] Last Admin: 01/04/17 23:53 Dose: 25 mg - Labs Labs: PT 11.8 Seconds (9.8-13.1) 01/01/17 12:30 INR 1.0 (0.9-1.2) 01/01/17 12:30 APTT 28.8 Seconds (25.6-37.1) 01/01/17 12:30 - Constitutional Appears: Well - Head Exam Head Exam: ATRAUMATIC, NORMOCEPHALIC - Eye Exam Eye Exam: Normal appearance, PERRL - ENT Exam ENT Exam: Mucous Membranes Moist - Neck Exam Neck Exam: Full ROM - Respiratory Exam Respiratory Exam: Decreased Breath Sounds - Cardiovascular Exam Cardiovascular Exam: REGULAR RHYTHM - GI/Abdominal Exam GI & Abdominal Exam: Soft, Normal Bowel Sounds - Extremities Exam Extremities Exam: Full ROM, Normal Inspection - Neurological Exam Neurological Exam: Alert - Skin Additional comments: Underneath breast arws of skin crusting and excoriation.with foul smelling Assessment and Plan - Assessment and Plan (Free Text) Assessment: Pleural effusion S/P thoracentesis. Pericardial effusion , S/P pericardial window. Underneath breast skin lesions with foul smelling. Paroxysmal Afib Plan: F/U recommendations of pulmonary Continue current manegement. NS cleaning followed by lotrisone cream surgical consult.
--- NOTE | 2017-01-06 21:34 | CP.PCM.PN ---
Subjective - Date & Time of Evaluation Date of Evaluation: 01/06/17 Time of Evaluation: 10:00 - Subjective Subjective: Less shortness of breath., still to decide about the FOB Objective - Vital Signs/Intake and Output Vital Signs (last 24 hours): Temp Pulse Resp BP Pulse Ox 99.3 F 53 L 18 97/63 L 93 L 01/06/17 20:44 01/06/17 20:44 01/06/17 20:44 01/06/17 20:44 01/06/17 20:44 Intake and Output: 01/06/17 01/07/17 18:59 06:59 Intake Total 240 Balance 240 - Medications Medications: Current Medications Clotrimazole (Lotrimin 1% Cream) 1 applic TOP BID [facility] Last Admin: 01/05/17 17:24 Dose: 1 applic Diltiazem HCl (Cardizem) 30 mg PO TID [facility] Last Admin: 01/06/17 10:19 Dose: 30 mg Heparin Sodium (Porcine) (Heparin) 5,000 units SC Q12 [facility] PRN Reason: Protocol Last Admin: 01/06/17 10:20 Dose: 5,000 units Metoprolol Tartrate (Lopressor) 12.5 mg PO BID [facility] Last Admin: 01/06/17 10:22 Dose: 12.5 mg Quetiapine Fumarate (Seroquel) 25 mg PO HS [facility] Last Admin: 01/05/17 21:50 Dose: 25 mg - Labs Labs: PT 11.8 Seconds (9.8-13.1) 01/01/17 12:30 INR 1.0 (0.9-1.2) 01/01/17 12:30 APTT 28.8 Seconds (25.6-37.1) 01/01/17 12:30 - Constitutional Appears: Non-toxic - Head Exam Head Exam: ATRAUMATIC, NORMOCEPHALIC - Eye Exam Eye Exam: Normal appearance, PERRL - ENT Exam ENT Exam: Mucous Membranes Moist Assessment and Plan - Assessment and Plan (Free Text) Assessment: Pleural effusion S/P thoracentesis. Pericardial effusion , S/P pericardial window. Underneath breast skin lesions with foul smelling. Paroxysmal Afib Plan: To decide about FOB Continue current management and medications. PT
--- NOTE | 2017-01-07 14:31 | CP.PCM.PN ---
Subjective - Date & Time of Evaluation Date of Evaluation: 01/07/17 Time of Evaluation: 14:29 - Subjective Subjective: confused. no chest pain or SOB now Objective - Vital Signs/Intake and Output Vital Signs (last 24 hours): Temp Pulse Resp BP Pulse Ox 98.3 F 63 18 110/77 93 L 01/07/17 13:00 01/07/17 13:15 01/07/17 13:00 01/07/17 13:00 01/07/17 13:00 Intake and Output: 01/07/17 01/07/17 06:59 18:59 Intake Total 420 Output Total 380 Balance 40 - Medications Medications: Current Medications Clotrimazole (Lotrimin 1% Cream) 1 applic TOP BID [facility] Last Admin: 01/07/17 08:52 Dose: 1 applic Diltiazem HCl (Cardizem) 30 mg PO TID [facility] Last Admin: 01/07/17 13:15 Dose: 30 mg Metoprolol Tartrate (Lopressor) 12.5 mg PO BID [facility] Last Admin: 01/07/17 08:48 Dose: 12.5 mg Quetiapine Fumarate (Seroquel) 25 mg PO HS [facility] Last Admin: 01/06/17 21:43 Dose: 25 mg - Labs Labs: PT 11.8 Seconds (9.8-13.1) 01/01/17 12:30 INR 1.0 (0.9-1.2) 01/01/17 12:30 APTT 28.8 Seconds (25.6-37.1) 01/01/17 12:30 - Head Exam Head Exam: NORMOCEPHALIC - Eye Exam Eye Exam: Normal appearance - Neck Exam Neck Exam: Normal Inspection - Respiratory Exam Respiratory Exam: Rhonchi - Cardiovascular Exam Cardiovascular Exam: REGULAR RHYTHM - Extremities Exam Extremities Exam: Pedal Edema Assessment and Plan - Assessment and Plan (Free Text) Assessment: Paroxysmal A Fib S/P pericardial window for tamponade Bilateral pleural effusion AMS Plan: Cont cont. Clotrimazole (Lotrimin 1% Cream) 1 applic TOP BID [facility] Last Admin: 01/07/17 08:52 Dose: 1 applic Diltiazem HCl (Cardizem) 30 mg PO TID [facility] Last Admin: 01/07/17 13:15 Dose: 30 mg Metoprolol Tartrate (Lopressor) 12.5 mg PO BID [facility] Last Admin: 01/07/17 08:48 Dose: 12.5 mg Quetiapine Fumarate (Seroquel) 25 mg PO HS [facility] Last Admin: 01/06/17 21:43 Dose: 25 mg Resume SQ heparin if no contraindication
--- NOTE | 2017-01-07 19:34 | CP.PCM.PN ---
Subjective - Date & Time of Evaluation Date of Evaluation: 01/07/17 Time of Evaluation: 08:00 - Subjective Subjective: No SOB at rest. Pt. and family to decide about FOB. Objective - Vital Signs/Intake and Output Vital Signs (last 24 hours): Temp Pulse Resp BP Pulse Ox 98.9 F 63 18 115/75 93 L 01/07/17 19:06 01/07/17 19:06 01/07/17 19:06 01/07/17 19:06 01/07/17 19:06 Intake and Output: 01/07/17 01/08/17 18:59 06:59 Intake Total 420 Output Total 380 Balance 40 - Medications Medications: Current Medications Clotrimazole (Lotrimin 1% Cream) 1 applic TOP BID [facility] Last Admin: 01/07/17 16:42 Dose: 1 applic Diltiazem HCl (Cardizem) 30 mg PO TID [facility] Last Admin: 01/07/17 16:16 Dose: 30 mg Metoprolol Tartrate (Lopressor) 12.5 mg PO BID [facility] Last Admin: 01/07/17 16:17 Dose: 12.5 mg Quetiapine Fumarate (Seroquel) 25 mg PO HS [facility] Last Admin: 01/06/17 21:43 Dose: 25 mg - Labs Labs: PT 11.8 Seconds (9.8-13.1) 01/01/17 12:30 INR 1.0 (0.9-1.2) 01/01/17 12:30 APTT 28.8 Seconds (25.6-37.1) 01/01/17 12:30 Assessment and Plan - Assessment and Plan (Free Text) Assessment: Pleural effusion S/P thoracentesis. Pericardial effusion , S/P pericardial window. Underneath breast skin lesions with foul smelling , likely tinea intertrigo Paroxysmal Afib Plan: F/U recommendations of pulmonary and cardiology. Continue NS and Lotrisone cream for the lesion under the breast.
[2017-01-08 06:46] LABS: HEMOGLOBIN 11.6 g/dL (12.0-16.0); MEAN CELL VOLUME 87.2 fl (81.0-99.0); MEAN CORPUSCULAR HEMOGLOBIN 28.5 pg (27.0-31.0); MEAN CORPUSCULAR HGB CONC 32.7 g/dL (33.0-37.0); RBC 4.06 Mil/uL (3.80-5.20); WHITE BLOOD COUNT 6.4 K/uL (4.8-10.8)
[2017-01-08 06:51] LABS: BLOOD UREA NITROGEN 19 mg/dl (7-17); CALCIUM 8.7 mg/dL (8.4-10.2); GFR AFRICAN-AMERICAN > 60; GFR NON-AFRICAN AMERICAN > 60
[2017-01-08 07:12] LABS: INR 1.1 (0.9-1.2); PARTIAL THROMBOPLASTIN TIME 28.7 Seconds (25.6-37.1); PROTHROMBIN TIME 12.2 Seconds (9.8-13.1)
--- NOTE | 2017-01-08 08:13 | CP.PCM.PN ---
Subjective - Date & Time of Evaluation Date of Evaluation: 01/08/17 Time of Evaluation: 08:11 - Subjective Subjective: Consent on the paper chart, signed. Procedure explained to the patient and her son, both. Heparin last dose was yesterday morning. Labs and CT scans all reviewed. Awaiting call to endoscopy. Objective - Vital Signs/Intake and Output Vital Signs (last 24 hours): Temp Pulse Resp BP Pulse Ox 98.4 F 76 20 123/74 93 L 01/08/17 01:00 01/08/17 01:00 01/08/17 01:00 01/08/17 01:00 01/08/17 01:00 - Medications Medications: Current Medications Clotrimazole (Lotrimin 1% Cream) 1 applic TOP BID [facility] Last Admin: 01/07/17 16:42 Dose: 1 applic Diltiazem HCl (Cardizem) 30 mg PO TID [facility] Last Admin: 01/07/17 16:16 Dose: 30 mg Metoprolol Tartrate (Lopressor) 12.5 mg PO BID [facility] Last Admin: 01/07/17 16:17 Dose: 12.5 mg Quetiapine Fumarate (Seroquel) 25 mg PO HS [facility] Last Admin: 01/07/17 22:21 Dose: 25 mg - Labs Labs: 01/08/17 06:25 01/08/17 06:25 PT 12.2 Seconds (9.8-13.1) 01/08/17 06:25 INR 1.1 (0.9-1.2) 01/08/17 06:25 APTT 28.7 Seconds (25.6-37.1) 01/08/17 06:25 Assessment and Plan (1) Pericardial effusion with cardiac tamponade Status: Resolved (2) Hemorrhagic pericardial effusion Status: Acute (3) Pulmonary nodule, left Status: Acute (4) Pleural effusion due to another disorder Status: Acute (5) Atelectasis Status: Acute
[2017-01-08] MEDS ORDERED: EPINEPHrine 1 mg/ml (1:1000) Inj ONE (08:15)
[2017-01-08] MEDS ORDERED: Sodium Chloride 0.9% 20 ML IV ONE (08:15)
[2017-01-08] MEDS ORDERED: Lidocaine 1% Inj (20ml) ONE (08:16)
[2017-01-08] MEDS ORDERED: Lidocaine 2% Jelly (Uro-Jet) ONE (08:17)
[2017-01-08] MEDS ORDERED: Lidocaine 2% Jelly (5 ml) TOP ONE (08:17)
[2017-01-08] MEDS ORDERED: Etomidate 20 mg/10ml Inj IV ONE (09:25)
[2017-01-08] MEDS ORDERED: Propofol 10 mg/ml Inj (20 ML) ONE (09:26)
[2017-01-08] MEDS ORDERED: Midazolam 2 MG/2 ML VIAL ONE (09:26)
[2017-01-08] MEDS ORDERED: Lactated Ringer's 500 ML IV ONE (09:30)
[2017-01-08] MEDS ORDERED: Lidocaine 2% GEL TOP ONE (09:45)
[2017-01-08] MEDS ORDERED: Lidocaine 1% Inj (20ml) TP ONE ×2 (09:46)
[2017-01-08] MEDS: Albuterol 0.083% Inhal Sol (2.5 mg/3 mL) UD INH STA ×2 (10:10→10:40)
[2017-01-08] MEDS ORDERED: Lactated Ringer's 1,000 ML IV SCH (10:14)
[2017-01-08] MEDS ORDERED: Albuterol 0.083% Inhal Sol (2.5 mg/3 mL) UD ONE (10:18)
[2017-01-08] MEDS ORDERED: Albuterol 0.083% Inhal Sol (2.5 mg/3 mL) UD INH STA (10:40)
--- NOTE | 2017-01-08 10:56 | CP.PCM.PN ---
Subjective - Date & Time of Evaluation Date of Evaluation: 01/08/17 Time of Evaluation: 10:52 - Subjective Subjective: FFB done this morning without incident; see separate note. Unable to perform TBLB because of inability to flex the scope enough to allow access of the biopsy forceps into the AP segment (specifically the posterior division) of the GANESH. Objective - Vital Signs/Intake and Output Vital Signs (last 24 hours): Temp Pulse Resp BP Pulse Ox 97.7 F 75 18 121/79 98 01/08/17 08:00 01/08/17 09:14 01/08/17 08:00 01/08/17 09:14 01/08/17 08:00 Intake and Output: 01/07/17 01/08/17 23:59 11:59 Intake Total 200 Balance 200 - Medications Medications: Current Medications Clotrimazole (Lotrimin 1% Cream) 1 applic TOP BID [facility] Last Admin: 01/08/17 09:15 Dose: 1 applic Diltiazem HCl (Cardizem) 30 mg PO TID [facility] Last Admin: 01/07/17 16:16 Dose: 30 mg Heparin Sodium (Porcine) (Heparin) 5,000 units SC Q12 [facility] PRN Reason: Protocol Lactated Ringer's (Lactated Ringer's) 1,000 mls @ 40 mls/hr IV .Q24H [facility] Metoprolol Tartrate (Lopressor) 12.5 mg PO BID [facility] Last Admin: 01/08/17 09:14 Dose: 12.5 mg Quetiapine Fumarate (Seroquel) 25 mg PO HS [facility] Last Admin: 01/07/17 22:21 Dose: 25 mg - Labs Labs: 01/08/17 06:25 01/08/17 06:25 PT 12.2 Seconds (9.8-13.1) 01/08/17 06:25 INR 1.1 (0.9-1.2) 01/08/17 06:25 APTT 28.7 Seconds (25.6-37.1) 01/08/17 06:25 Assessment and Plan (1) Pericardial effusion with cardiac tamponade Status: Resolved (2) Hemorrhagic pericardial effusion Status: Acute (3) Pulmonary nodule, left Status: Acute (4) Pleural effusion due to another disorder Status: Acute (5) Atelectasis Status: Acute
--- NOTE | 2017-01-08 10:59 | US ---
PROCEDURE: Date of procedure: 01/04/2017 Procedure: 1. Ultrasound-guided Right thoracentesis, CPT 38379 Medications: 4cc 1% Lidocaine HISTORY: Right pleural effusion, shortness of breath TECHNIQUE: Following informed consent ,the Patients' right chest was marked. Procedure time-out was called, and the patient was placed in the sitting position and limited ultrasound showed a large right effusion. The patient's right back was prepped and draped in the usual sterile fashion. After the skin was anesthetized with lidocaine, a drainage catheter was advanced under ultrasound guidance into the pleural space. Ultrasound-guided thoracentesis was performed. A total of 320 cubic centimeters of serosanguinou sfluid removed without complication. A Xeroform dressing was applied. IMPRESSION: Ultrasound guided Right thoracentesis. There were no immediate complications.
--- NOTE | 2017-01-08 11:24 | RAD ---
HISTORY: post bronchoscopy COMPARISON: No prior. FINDINGS: LUNGS: Hazy opacity throughout the left lung consistent with left-sided effusion probably associated with atelectasis and or infiltrate left lung base. Small residual right-sided effusion and mild right basilar atelectasis and or infiltrate as well. PLEURA: As above. No definitive evidence of pneumothorax CARDIOVASCULAR: Cardiomegaly. OSSEOUS STRUCTURES: No significant abnormalities. VISUALIZED UPPER ABDOMEN: Normal. OTHER FINDINGS: None. IMPRESSION: Hazy opacity throughout the left lung consistent with left-sided effusion probably associated with atelectasis and or infiltrate left lung base. Small residual right-sided effusion and mild right basilar atelectasis and or infiltrate as well. No definitive evidence of pneumothorax. Cardiomegaly.
--- NOTE | 2017-01-08 15:08 | RAD ---
PROCEDURE: Intraoperative Fluoroscopy. HISTORY: BRONCHOSCOPY FINDINGS: Fluoroscopic assistance was provided. 76 seconds fluoroscopy time utilized during this procedure. Radiation dose = 9.02 mGy Please refer to operative report for additional details
--- NOTE | 2017-01-08 15:10 | CP.PCM.PN ---
Subjective - Date & Time of Evaluation Date of Evaluation: 01/08/17 Time of Evaluation: 15:08 - Subjective Subjective: Fell from bed Confused Objective - Vital Signs/Intake and Output Vital Signs (last 24 hours): Temp Pulse Resp BP Pulse Ox 97.3 F L 78 18 107/60 96 01/08/17 13:00 01/08/17 14:48 01/08/17 13:00 01/08/17 14:48 01/08/17 13:00 Intake and Output: 01/08/17 01/08/17 06:59 18:59 Intake Total 300 Balance 300 - Medications Medications: Current Medications Clotrimazole (Lotrimin 1% Cream) 1 applic TOP BID [facility] Last Admin: 01/08/17 09:15 Dose: 1 applic Diltiazem HCl (Cardizem) 30 mg PO TID [facility] Last Admin: 01/08/17 14:48 Dose: 30 mg Enoxaparin Sodium (Lovenox) 30 mg SC DAILY [facility] PRN Reason: Protocol Lactated Ringer's (Lactated Ringer's) 1,000 mls @ 40 mls/hr IV .Q24H [facility] Metoprolol Tartrate (Lopressor) 12.5 mg PO BID [facility] Last Admin: 01/08/17 09:14 Dose: 12.5 mg Quetiapine Fumarate (Seroquel) 25 mg PO HS [facility] Last Admin: 01/07/17 22:21 Dose: 25 mg - Labs Labs: 01/08/17 06:25 01/08/17 06:25 PT 12.2 Seconds (9.8-13.1) 01/08/17 06:25 INR 1.1 (0.9-1.2) 01/08/17 06:25 APTT 28.7 Seconds (25.6-37.1) 01/08/17 06:25 - Head Exam Head Exam: NORMAL INSPECTION - Eye Exam Eye Exam: Normal appearance - Respiratory Exam Respiratory Exam: Rhonchi - Cardiovascular Exam Cardiovascular Exam: REGULAR RHYTHM - Extremities Exam Extremities Exam: Normal Inspection Assessment and Plan - Assessment and Plan (Free Text) Assessment: S/p pericardial window for tamponade Sero/sanguinous bilateral pleural effusion Paroxysmal A Fib AMS [place] Plan: Discuused at [facility] with Dr. Hopson and LIONEL Lovenox 30 mg SQ daily Full anti coagulation may not be justified at this time Cont Clotrimazole (Lotrimin 1% Cream) 1 applic TOP BID [facility] Last Admin: 01/08/17 09:15 Dose: 1 applic Diltiazem HCl (Cardizem) 30 mg PO TID [facility] Last Admin: 01/08/17 14:48 Dose: 30 mg Enoxaparin Sodium (Lovenox) 30 mg SC DAILY [facility] PRN Reason: Protocol Lactated Ringer's (Lactated Ringer's) 1,000 mls @ 40 mls/hr IV .Q24H [facility] Metoprolol Tartrate (Lopressor) 12.5 mg PO BID [facility] Last Admin: 01/08/17 09:14 Dose: 12.5 mg Quetiapine Fumarate (Seroquel) 25 mg PO HS [facility] Last Admin: 01/07/17 22:21 Dose: 25 mg
--- NOTE | 2017-01-08 22:21 | CP.PCM.PN ---
Subjective - Date & Time of Evaluation Date of Evaluation: 01/08/17 Time of Evaluation: 14:00 - Subjective Subjective: Pt. was seen after bronchoscopy. She tolerated the procedure well. Objective - Vital Signs/Intake and Output Vital Signs (last 24 hours): Temp Pulse Resp BP Pulse Ox 97.8 F 66 20 111/59 L 97 01/08/17 19:21 01/08/17 19:21 01/08/17 19:21 01/08/17 19:21 01/08/17 19:21 Intake and Output: 01/08/17 01/09/17 18:59 06:59 Intake Total 1120 Output Total 400 Balance 720 - Medications Medications: Current Medications Clotrimazole (Lotrimin 1% Cream) 1 applic TOP BID [facility] Last Admin: 01/08/17 17:24 Dose: 1 applic Diltiazem HCl (Cardizem) 30 mg PO TID [facility] Last Admin: 01/08/17 17:29 Dose: 30 mg Enoxaparin Sodium (Lovenox) 30 mg SC DAILY [facility] PRN Reason: Protocol Lactated Ringer's (Lactated Ringer's) 1,000 mls @ 40 mls/hr IV .Q24H [facility] Metoprolol Tartrate (Lopressor) 12.5 mg PO BID [facility] Last Admin: 01/08/17 17:30 Dose: 12.5 mg Quetiapine Fumarate (Seroquel) 25 mg PO HS [facility] Last Admin: 01/08/17 22:05 Dose: 25 mg - Labs Labs: 01/08/17 06:25 01/08/17 06:25 PT 12.2 Seconds (9.8-13.1) 01/08/17 06:25 INR 1.1 (0.9-1.2) 01/08/17 06:25 APTT 28.7 Seconds (25.6-37.1) 01/08/17 06:25 - Head Exam Head Exam: ATRAUMATIC, NORMOCEPHALIC - Eye Exam Eye Exam: Normal appearance, PERRL - ENT Exam ENT Exam: Mucous Membranes Moist, Normal Exam - Neck Exam Neck Exam: Full ROM - Respiratory Exam Respiratory Exam: Clear to Ausculation Bilateral, NORMAL BREATHING PATTERN - Cardiovascular Exam Cardiovascular Exam: REGULAR RHYTHM - GI/Abdominal Exam GI & Abdominal Exam: Soft, Normal Bowel Sounds - Extremities Exam Extremities Exam: Full ROM - Neurological Exam Neurological Exam: Alert, Awake - Skin Additional comments: Underneath the breasts , there erythematous are with skin excoriation and crusting. Assessment and Plan - Assessment and Plan (Free Text) Assessment: Pleural effusion S/P thoracentesis.S/P FOB today , which was unremarkable. Pericardial effusion , S/P pericardial window. Underneath breast skin lesions with foul smelling , likely tinea intertrigo Paroxysmal Afib Plan: Discussed with pulmonary and cardiology and IR , The pieural effusion is likely a sequelae after pericardial window , will start lovenox 30 mg daily. plan to d/ c to [facility].
[2017-01-09] MEDS: Enoxaparin 30 mg Syringe SC SCH (09:03)
--- NOTE | 2017-01-09 16:00 | CP.PCM.PN ---
Subjective - Date & Time of Evaluation Date of Evaluation: 01/09/17 Time of Evaluation: 10:00 - Subjective Subjective: No SOB at rest. Objective - Vital Signs/Intake and Output Vital Signs (last 24 hours): Temp Pulse Resp BP Pulse Ox 98 F 57 L 20 99/64 L 97 01/09/17 15:47 01/09/17 15:47 01/09/17 15:47 01/09/17 15:47 01/09/17 15:47 - Medications Medications: Current Medications Clotrimazole (Lotrimin 1% Cream) 1 applic TOP BID [facility] Last Admin: 01/09/17 09:03 Dose: 1 applic Diltiazem HCl (Cardizem) 30 mg PO TID [facility] Last Admin: 01/09/17 12:54 Dose: 30 mg Enoxaparin Sodium (Lovenox) 30 mg SC DAILY [facility] PRN Reason: Protocol Last Admin: 01/09/17 09:03 Dose: 30 mg Metoprolol Tartrate (Lopressor) 12.5 mg PO BID [facility] Last Admin: 01/09/17 09:02 Dose: 12.5 mg Quetiapine Fumarate (Seroquel) 25 mg PO HS [facility] Last Admin: 01/08/17 22:05 Dose: 25 mg - Labs Labs: 01/08/17 06:25 01/08/17 06:25 PT 12.2 Seconds (9.8-13.1) 01/08/17 06:25 INR 1.1 (0.9-1.2) 01/08/17 06:25 APTT 28.7 Seconds (25.6-37.1) 01/08/17 06:25 - Head Exam Head Exam: ATRAUMATIC, NORMOCEPHALIC - Eye Exam Eye Exam: Normal appearance, PERRL Pupil Exam: PERRL - ENT Exam ENT Exam: Mucous Membranes Moist, Normal Exam - Neck Exam Neck Exam: Full ROM - Respiratory Exam Respiratory Exam: NORMAL BREATHING PATTERN - Cardiovascular Exam Cardiovascular Exam: REGULAR RHYTHM - GI/Abdominal Exam GI & Abdominal Exam: Normal Bowel Sounds - Extremities Exam Extremities Exam: Full ROM - Back Exam Back Exam: NORMAL INSPECTION - Neurological Exam Neurological Exam: Alert, Awake Assessment and Plan - Assessment and Plan (Free Text) Assessment: Pleural effusion S/P thoracentesis.S/P FOB yesterday , which was unremarkable. Pericardial effusion , S/P pericardial window. Underneath breast skin lesions with foul smelling , likely tinea intertrigo Paroxysmal Afib Plan: Continue current mangement. Willplan to d/c to [facility] as per pt. and family choice. F/U with Dr Schumacher after discharge.
--- NOTE | 2017-01-09 17:29 | CP.PCM.PN ---
Subjective - Date & Time of Evaluation Date of Evaluation: 01/09/17 Time of Evaluation: 17:27 - Subjective Subjective: Confused, no apparent distress Objective - Vital Signs/Intake and Output Vital Signs (last 24 hours): Temp Pulse Resp BP Pulse Ox 98 F 57 L 20 99/64 L 97 01/09/17 15:47 01/09/17 15:47 01/09/17 15:47 01/09/17 15:47 01/09/17 15:47 - Medications Medications: Current Medications Clotrimazole (Lotrimin 1% Cream) 1 applic TOP BID [facility] Last Admin: 01/09/17 09:03 Dose: 1 applic Diltiazem HCl (Cardizem) 30 mg PO TID [facility] Last Admin: 01/09/17 12:54 Dose: 30 mg Enoxaparin Sodium (Lovenox) 30 mg SC DAILY [facility] PRN Reason: Protocol Last Admin: 01/09/17 09:03 Dose: 30 mg Metoprolol Tartrate (Lopressor) 12.5 mg PO BID [facility] Last Admin: 01/09/17 09:02 Dose: 12.5 mg Quetiapine Fumarate (Seroquel) 25 mg PO HS [facility] Last Admin: 01/08/17 22:05 Dose: 25 mg - Labs Labs: 01/08/17 06:25 01/08/17 06:25 PT 12.2 Seconds (9.8-13.1) 01/08/17 06:25 INR 1.1 (0.9-1.2) 01/08/17 06:25 APTT 28.7 Seconds (25.6-37.1) 01/08/17 06:25 - Head Exam Head Exam: NORMOCEPHALIC - Eye Exam Eye Exam: Normal appearance - ENT Exam ENT Exam: Normal Exam - Respiratory Exam Respiratory Exam: Rhonchi - Cardiovascular Exam Cardiovascular Exam: REGULAR RHYTHM - Extremities Exam Extremities Exam: Normal Inspection Assessment and Plan - Assessment and Plan (Free Text) Assessment: Paroxysmal A Fib S/p pericardia window for tamponade Bilateral pleural effusion Fall twice in the hospital AMS Plan: Cont. Clotrimazole (Lotrimin 1% Cream) 1 applic TOP BID [facility] Last Admin: 01/09/17 09:03 Dose: 1 applic Diltiazem HCl (Cardizem) 30 mg PO TID [facility] Last Admin: 01/09/17 12:54 Dose: 30 mg Enoxaparin Sodium (Lovenox) 30 mg SC DAILY [facility] PRN Reason: Protocol Last Admin: 01/09/17 09:03 Dose: 30 mg Metoprolol Tartrate (Lopressor) 12.5 mg PO BID [facility] Last Admin: 01/09/17 09:02 Dose: 12.5 mg Quetiapine Fumarate (Seroquel) 25 mg PO HS [facility] Last Admin: 01/08/17 22:05 Dose: 25 mg
[2017-01-10] MEDS: Enoxaparin 30 mg Syringe SC SCH (08:21)
--- NOTE | 2017-01-10 10:15 | CP.PCM.PN ---
Subjective - Date & Time of Evaluation Date of Evaluation: 01/10/17 Time of Evaluation: 10:10 - Subjective Subjective: Interim events reviewed. Spoke with pathology this morning. Hopefully cytology reports from thoracentesis and bronchoscopy will be available later today. Vital signs have remained stable, she is afebrile. Bronchial washings for routine culture are growing Klebsiella pneumoniae. Seated in bedside chair, no complaints of cough or SOB. Oxygenation is only high 80's on room air. O2 canula reapplied. Neck is supple and trachea midline. Dullness to percussion is present in the left lung base. Breath sounds are diminished bilaterally, absent in the left base. No audible wheezes, rales or rub. No bronchial breath sounds. Will begin oral cephalexin. Maintain on nasal canula. Awaiting cytologies. Still no etiology for the hemorrhagic pericardial fluid. Still suspect for underlying neoplastic disease. Objective - Vital Signs/Intake and Output Vital Signs (last 24 hours): Temp Pulse Resp BP Pulse Ox 97.3 F L 75 18 121/76 98 01/10/17 08:07 01/10/17 09:00 01/10/17 08:07 01/10/17 08:22 01/10/17 08:07 Intake and Output: 01/09/17 01/10/17 23:59 11:59 Intake Total 850 Balance 850 - Medications Medications: Current Medications Clotrimazole (Lotrimin 1% Cream) 1 applic TOP BID [facility] Last Admin: 01/09/17 17:32 Dose: 1 applic Diltiazem HCl (Cardizem) 30 mg PO TID [facility] Last Admin: 01/10/17 08:22 Dose: 30 mg Enoxaparin Sodium (Lovenox) 30 mg SC DAILY [facility] PRN Reason: Protocol Last Admin: 01/10/17 08:21 Dose: 30 mg Metoprolol Tartrate (Lopressor) 12.5 mg PO BID [facility] Last Admin: 01/10/17 08:21 Dose: 12.5 mg Quetiapine Fumarate (Seroquel) 25 mg PO HS [facility] Last Admin: 01/09/17 21:34 Dose: 25 mg - Labs Labs: 01/08/17 06:25 01/08/17 06:25 PT 12.2 Seconds (9.8-13.1) 01/08/17 06:25 INR 1.1 (0.9-1.2) 01/08/17 06:25 APTT 28.7 Seconds (25.6-37.1) 01/08/17 06:25 Assessment and Plan (1) Hemorrhagic pericardial effusion Status: Acute (2) Pulmonary nodule, left Status: Acute (3) Pleural effusion due to another disorder Status: Acute (4) Atelectasis Status: Acute
[2017-01-10 13:03] LABS: BLOOD UREA NITROGEN 13 mg/dl (7-17); CALCIUM 8.9 mg/dL (8.4-10.2); GFR AFRICAN-AMERICAN > 60; GFR NON-AFRICAN AMERICAN > 60
[2017-01-10 13:14] LABS: BASO # 0.1 K/uL (0.0-0.2); BASO % 1.2 % (0.0-2.0); EOS # 0.1 K/uL (0.0-0.7); EOS % 1.3 % (0.0-4.0); HEMOGLOBIN 12.8 g/dL (12.0-16.0); LYMPH # 0.5 K/uL (1.0-4.3); LYMPH % 8.3 % (20.0-40.0); MEAN CELL VOLUME 86.7 fl (81.0-99.0); MEAN CORPUSCULAR HEMOGLOBIN 28.1 pg (27.0-31.0); MEAN CORPUSCULAR HGB CONC 32.4 g/dL (33.0-37.0); MONO # 0.4 K/uL (0.0-0.8); MONO % 7.3 % (0.0-10.0); NEUT # 4.9 K/uL (1.8-7.0); NEUT % 81.9 % (50.0-75.0); PLATELET COUNT 185 K/uL (130-400); RBC 4.55 Mil/uL (3.80-5.20); RED CELL DISTRIBUTION WIDTH 18.2 % (11.5-14.5)
--- NOTE | 2017-01-10 14:11 | RAD ---
HISTORY: f/u , upright COMPARISON: No prior. FINDINGS: LUNGS: There is mild pulmonary venous congestion. PLEURA: There is a small right and moderate left pleural effusion. There is fluid in the minor fissure. CARDIOVASCULAR: The heart is normal in size. Atherosclerotic aortic arch calcifications are present. OSSEOUS STRUCTURES: No significant abnormalities. VISUALIZED UPPER ABDOMEN: Normal. OTHER FINDINGS: None. IMPRESSION: Small right and moderate left pleural effusion. Fluid in the minor fissure.
[2017-01-10 14:57] LABS: LYMPHOCYTE 11 % (20-50); MONOCYTE 9 % (0-10); NEUTROPHIL 80 % (42-75); TOTAL CELLS COUNTED 100
[2017-01-10 14:59] LABS: ANISOCYTOSIS SLIGHT; BURR CELLS MODERATE; OVALOCYTES SLIGHT; PLATELET ESTIMATE NORMAL (NORMAL); POIKILOCYTOSIS MODERATE
--- NOTE | 2017-01-10 15:48 | CP.PCM.PN ---
Subjective - Date & Time of Evaluation Date of Evaluation: 01/10/17 Time of Evaluation: 15:46 - Subjective Subjective: No SOB or distress Confused Pleural fluid cytology, No malignant cells Dr. Watkins note reviewed Objective - Vital Signs/Intake and Output Vital Signs (last 24 hours): Temp Pulse Resp BP Pulse Ox 97.5 F L 66 18 117/80 99 01/10/17 11:54 01/10/17 13:08 01/10/17 11:54 01/10/17 13:08 01/10/17 11:54 - Medications Medications: Current Medications Cephalexin Monohydrate (Keflex) 500 mg PO Q6 [facility] Clotrimazole (Lotrimin 1% Cream) 1 applic TOP BID [facility] Last Admin: 01/10/17 10:26 Dose: 1 applic Diltiazem HCl (Cardizem) 30 mg PO TID [facility] Last Admin: 01/10/17 13:08 Dose: 30 mg Enoxaparin Sodium (Lovenox) 30 mg SC DAILY [facility] PRN Reason: Protocol Last Admin: 01/10/17 08:21 Dose: 30 mg Lactulose (Enulose) 20 gm PO DAILY [facility] PRN Reason: Constipation Metoprolol Tartrate (Lopressor) 12.5 mg PO BID [facility] Last Admin: 01/10/17 08:21 Dose: 12.5 mg Quetiapine Fumarate (Seroquel) 25 mg PO HS [facility] Last Admin: 01/09/17 21:34 Dose: 25 mg - Labs Labs: 01/10/17 13:00 01/10/17 12:12 PT 12.2 Seconds (9.8-13.1) 01/08/17 06:25 INR 1.1 (0.9-1.2) 01/08/17 06:25 APTT 28.7 Seconds (25.6-37.1) 01/08/17 06:25 - Constitutional Appears: Confused - Head Exam Head Exam: NORMAL INSPECTION - Respiratory Exam Respiratory Exam: Decreased Breath Sounds - Cardiovascular Exam Cardiovascular Exam: REGULAR RHYTHM - Extremities Exam Extremities Exam: Normal Inspection Assessment and Plan - Assessment and Plan (Free Text) Assessment: Paroxysmal A Fib Recurrent Falls S/P pericardial window Bilateral Pleural Effusion Plan: Cont. Cephalexin Monohydrate (Keflex) 500 mg PO Q6 [facility] Clotrimazole (Lotrimin 1% Cream) 1 applic TOP BID [facility] Last Admin: 01/10/17 10:26 Dose: 1 applic Diltiazem HCl (Cardizem) 30 mg PO TID [facility] Last Admin: 01/10/17 13:08 Dose: 30 mg Enoxaparin Sodium (Lovenox) 30 mg SC DAILY [facility] PRN Reason: Protocol Last Admin: 01/10/17 08:21 Dose: 30 mg Lactulose (Enulose) 20 gm PO DAILY [facility] PRN Reason: Constipation Metoprolol Tartrate (Lopressor) 12.5 mg PO BID [facility] Last Admin: 01/10/17 08:21 Dose: 12.5 mg Quetiapine Fumarate (Seroquel) 25 mg PO HS [facility] Last Admin: 01/09/17 21:34 Dose: 25 mg discussed with [employer]
--- NOTE | 2017-01-10 17:48 | CP.PCM.PN ---
Subjective - Date & Time of Evaluation Date of Evaluation: 01/10/17 Time of Evaluation: 04:30 - Subjective Subjective: No SOB sitting Objective - Vital Signs/Intake and Output Vital Signs (last 24 hours): Temp Pulse Resp BP Pulse Ox 98.4 F 69 20 98/66 L 93 L 01/10/17 15:56 01/10/17 16:45 01/10/17 15:56 01/10/17 16:45 01/10/17 15:56 - Medications Medications: Current Medications Cephalexin Monohydrate (Keflex) 500 mg PO Q6 [facility] Last Admin: 01/10/17 16:44 Dose: 500 mg Clotrimazole (Lotrimin 1% Cream) 1 applic TOP BID [facility] Last Admin: 01/10/17 16:46 Dose: 1 applic Diltiazem HCl (Cardizem) 30 mg PO TID [facility] Last Admin: 01/10/17 16:45 Dose: Not Given Enoxaparin Sodium (Lovenox) 30 mg SC DAILY [facility] PRN Reason: Protocol Last Admin: 01/10/17 08:21 Dose: 30 mg Lactulose (Enulose) 20 gm PO DAILY [facility]N PRN Reason: Constipation Metoprolol Tartrate (Lopressor) 12.5 mg PO BID [facility] Last Admin: 01/10/17 16:45 Dose: Not Given Quetiapine Fumarate (Seroquel) 25 mg PO HS [facility] Last Admin: 01/09/17 21:34 Dose: 25 mg - Labs Labs: 01/10/17 13:00 01/10/17 12:12 PT 12.2 Seconds (9.8-13.1) 01/08/17 06:25 INR 1.1 (0.9-1.2) 01/08/17 06:25 APTT 28.7 Seconds (25.6-37.1) 01/08/17 06:25 - Head Exam Head Exam: ATRAUMATIC, NORMOCEPHALIC - Eye Exam Eye Exam: PERRL Pupil Exam: NORMAL ACCOMODATION, PERRL - ENT Exam ENT Exam: Mucous Membranes Moist - Neck Exam Neck Exam: Full ROM - Respiratory Exam Respiratory Exam: Clear to Ausculation Bilateral, NORMAL BREATHING PATTERN - GI/Abdominal Exam GI & Abdominal Exam: Soft, Normal Bowel Sounds - Rectal Exam Rectal Exam: NORMAL INSPECTION Assessment and Plan - Assessment and Plan (Free Text) Assessment: Assessment and Plan (1) Hemorrhagic pericardial effusion Status: Acute (2) Pulmonary nodule, left Status: Acute (3) Pleural effusion due to another disorder Status: Acute (4) Atelectasis Status: Acute Plan: Hematolog/oncology consult. Started on antibiotics treating klebsiella infection of bronchial wash.
[2017-01-11] MEDS ORDERED: Lidocaine 1% Inj (20ml) ONE (12:35)
--- NOTE | 2017-01-11 13:01 | PCM.SURG1 ---
Surgeon's Initial Post Op Note - Surgeon's Notes Surgeon: Matthew Troncoso MD Payroll Professional: NONE Type of Anesthesia: Local Pre-Operative Diagnosis: Left pleural effusion Operative Findings: US showed a large left effusion Post-Operative Diagnosis: Left pleural effusion Operation Performed: US guided left thoracentesis. Specimen/Specimens Removed: 1 Liter of faye colored fluid Estimated Blood Loss: EBL {In ML}: 0 Blood Products Given: N/A Drains Used: No Drains Post-Op Condition: Fair Date of Surgery/Procedure: 01/11/17 Time of Surgery/Procedure: 12:55
--- NOTE | 2017-01-11 13:25 | CP.PCM.PN ---
Subjective - Date & Time of Evaluation Date of Evaluation: 01/11/17 Time of Evaluation: 13:06 - Subjective Subjective: All records reviewed, patient examined. Spoke with her son by phone. Discussed with thoracic surgery. Pathologist report; brushing and washings, no malignancy seen. Large # of fungal organisms c/w eric. Pleural fluid re-accumulation noted on CXR and physical exam, thoracentesis by IR on left, 1L removed. Has remained relatively stable from a clinical standpoint. OOB to chair and offering no complaints. Suspect an occult neoplastic process, but difficulty making definitive diagnosis. Cardiac vs pulmonary primary, most likely sources. Next steps, outpatient PET scan? Cardiac MRI? If PET scan is done and lung lesion does not enhance, than this is an unlikely source. Objective - Vital Signs/Intake and Output Vital Signs (last 24 hours): Temp Pulse Resp BP Pulse Ox 97.7 F 75 20 131/78 97 01/11/17 12:42 01/11/17 12:42 01/11/17 12:42 01/11/17 12:42 01/11/17 12:42 - Medications Medications: Current Medications Cephalexin Monohydrate (Keflex) 500 mg PO Q6 [facility] Last Admin: 01/11/17 10:31 Dose: 500 mg Clotrimazole (Lotrimin 1% Cream) 1 applic TOP BID [facility] Last Admin: 01/11/17 10:31 Dose: 1 applic Diltiazem HCl (Cardizem) 30 mg PO TID [facility] Last Admin: 01/11/17 08:31 Dose: 30 mg Enoxaparin Sodium (Lovenox) 30 mg SC DAILY [facility] PRN Reason: Protocol Last Admin: 01/10/17 08:21 Dose: 30 mg Fluconazole (Diflucan Iv 100 Mg/50 Ml Ns) 50 mls @ 50 mls/hr IVPB DAILY [facility] Lactulose (Enulose) 20 gm PO DAILY PRN PRN Reason: Constipation Metoprolol Tartrate (Lopressor) 12.5 mg PO BID [facility] Last Admin: 01/11/17 08:31 Dose: 12.5 mg Quetiapine Fumarate (Seroquel) 25 mg PO HS [facility] Last Admin: 01/10/17 21:33 Dose: 25 mg - Labs Labs: 01/10/17 13:00 01/10/17 12:12 PT 12.2 Seconds (9.8-13.1) 01/08/17 06:25 INR 1.1 (0.9-1.2) 01/08/17 06:25 APTT 28.7 Seconds (25.6-37.1) 01/08/17 06:25 Assessment and Plan (1) Hemorrhagic pericardial effusion Status: Acute (2) Pulmonary nodule, left Status: Acute (3) Pleural effusion due to another disorder Status: Acute (4) Atelectasis Status: Resolved
--- NOTE | 2017-01-11 13:58 | RAD ---
HISTORY: Status post left thoracentesis COMPARISON: Chest x-ray 01/10/2017 FINDINGS: LUNGS: There is no pneumothorax. PLEURA: Blunting of the right costophrenic margin consistent with a small to moderate effusion. This is improved from the previous chest x-ray. Is also improved aeration of the left lung following thoracentesis. CARDIOVASCULAR: The heart is normal in size. Atherosclerotic aortic arch calcifications are present. OSSEOUS STRUCTURES: No significant abnormalities. VISUALIZED UPPER ABDOMEN: Normal. OTHER FINDINGS: None. IMPRESSION: Improved aeration of the left lung following thoracentesis. There is no pneumothorax. Mild blunting of the right costophrenic margin consistent with a small moderate effusion. This appears slightly improved from the previous study and likely is positional.
--- NOTE | 2017-01-11 13:59 | US ---
PROCEDURE: Date of procedure: 01/11/2017 Procedure: 1. Ultrasound-guided left thoracentesis, CPT 34833 Medications: 5CC 1% Lidocaine HISTORY: Left pleural effusion, shortness of breath TECHNIQUE: Following informed consent ,the Patients' left chest was marked. Procedure time-out was called, and the patient was placed in the sitting position and limited ultrasound showed a large left effusion. The patient's left back was prepped and draped in the usual sterile fashion. After the skin was anesthetized with lidocaine, a drainage catheter was advanced under ultrasound guidance into the pleural space. Ultrasound-guided thoracentesis was performed. A total of 1000 cubic centimeters of faye -colored fluid removed without complication. A Xeroform dressing was applied. IMPRESSION: Ultrasound guided left thoracentesis. There were no immediate complications.
[2017-01-11] MEDS: Fluconazole IV 100mg/50 ml NS 50 ML IVPB SCH (14:33)
--- NOTE | 2017-01-11 14:49 | CT ---
PROCEDURE: CT Chest without contrast HISTORY: pulmonary nodules COMPARISON: None. TECHNIQUE: Contiguous axial images were obtained through the chest without intravenous contrast enhancement. Sagittal and coronal reconstructions were performed. Radiation dose (DLP): 428.20 MGy-cm. This CT exam was performed using one or more of the following dose reduction techniques: Automated exposure control, adjustment of the mA and/or kV according to patient size, and/or use of iterative reconstruction technique. FINDINGS: LUNGS: There is redemonstration of a 8 mm nodule in the subpleural left upper lobe and 5 mm nodule more anteriorly in the left upper lobe. There is compressive atelectasis in both lower lobes. There is also subsegmental atelectasis in the left lower lobe. There are no endobronchial lesions. MEDIASTINUM: The aorta is not dilated. There is moderate cardiomegaly and mild pericardial effusion. There are atherosclerotic coronary artery calcifications. PLEURA: There are worsening bilateral pleural effusions, larger on the right and moderate on the left. BONES: No fracture. No destructive lesion. There is diffuse bone demineralization and multilevel degenerative changes in the spine. UPPER ABDOMEN: Grossly unremarkable. OTHER FINDINGS: There is interval decrease in size of a 2.8 x 3.8 x 4.2 cm elliptical high attenuation mass in the right lower anterior mediastinum extending to the chest wall with surrounding fat stranding most compatible with a hematoma. Status post pericardial window. The thyroid gland is heterogeneous with asymmetric enlargement of the right lobe. IMPRESSION: 1. Worsening bilateral pleural effusions, larger on the left and moderate on the right with compressive atelectasis in the lower lobes. 2. Small pericardial effusion. Interval decrease in size of presumable hematoma in the right lower anterior mediastinum extending into the chest wall, likely related to recent intervention. 3. Stable 8 mm subpleural nodule in the left upper lobe and 5 mm nodule in the left upper lobe more anteriorly. Follow-up CT scan in 6 months interval is recommended to assess stability.
[2017-01-11 15:09] LABS: BODY FLUID TYPE PLEURAL/THORACENTESI
[2017-01-11 15:11] LABS: TOTAL PROTEIN,BODY FLUID 3.5 g/dL (NONE ESTABLISHED)
[2017-01-11 15:12] LABS: GLUCOSE,BODY FLUID 96 mg/dL (NONE ESTABLISHED)
[2017-01-11 15:58] LABS: BF GROSS APPEARANCE CLOUDY (CLEAR)
[2017-01-11 16:00] LABS: BODY FLUID MONO/MACROPHAGE 2 % (0-0); BODY FLUID TOTAL COUNT 100 (0-0)
--- NOTE | 2017-01-11 21:55 | CP.PCM.PN ---
Subjective - Date & Time of Evaluation Date of Evaluation: 01/11/17 Time of Evaluation: 16:00 - Subjective Subjective: Pt. developed another large pleural effusion . S/P thoracentesis Objective - Vital Signs/Intake and Output Vital Signs (last 24 hours): Temp Pulse Resp BP Pulse Ox 98.1 F 62 20 105/64 95 01/11/17 19:54 01/11/17 19:54 01/11/17 19:54 01/11/17 19:54 01/11/17 19:54 Intake and Output: 01/11/17 01/12/17 18:59 06:59 Intake Total 650 Balance 650 - Medications Medications: Current Medications Cephalexin Monohydrate (Keflex) 500 mg PO Q6 [facility] Last Admin: 01/11/17 21:27 Dose: 500 mg Clotrimazole (Lotrimin 1% Cream) 1 applic TOP BID [facility] Last Admin: 01/11/17 17:49 Dose: 1 applic Diltiazem HCl (Cardizem) 30 mg PO TID [facility] Last Admin: 01/11/17 17:49 Dose: 30 mg Enoxaparin Sodium (Lovenox) 30 mg SC DAILY [facility] PRN Reason: Protocol Last Admin: 01/10/17 08:21 Dose: 30 mg Fluconazole (Diflucan Iv 100 Mg/50 Ml Ns) 50 mls @ 50 mls/hr IVPB DAILY [facility] Last Admin: 01/11/17 14:33 Dose: 50 mls/hr Lactulose (Enulose) 20 gm PO DAILY PRN PRN Reason: Constipation Metoprolol Tartrate (Lopressor) 12.5 mg PO BID [facility] Last Admin: 01/11/17 17:49 Dose: 12.5 mg Quetiapine Fumarate (Seroquel) 25 mg PO HS [facility] Last Admin: 01/11/17 21:27 Dose: 25 mg - Labs Labs: 01/10/17 13:00 01/10/17 12:12 PT 12.2 Seconds (9.8-13.1) 01/08/17 06:25 INR 1.1 (0.9-1.2) 01/08/17 06:25 APTT 28.7 Seconds (25.6-37.1) 01/08/17 06:25 - Head Exam Head Exam: ATRAUMATIC, NORMOCEPHALIC - Eye Exam Eye Exam: PERRL - ENT Exam ENT Exam: Mucous Membranes Moist - Neck Exam Neck Exam: Full ROM - Respiratory Exam Additional comments: Decreased breath sound both lower lung guthrie. - Cardiovascular Exam Cardiovascular Exam: REGULAR RHYTHM - GI/Abdominal Exam GI & Abdominal Exam: Soft, Normal Bowel Sounds - Extremities Exam Extremities Exam: Full ROM Assessment and Plan - Assessment and Plan (Free Text) Assessment: (1) Hemorrhagic pericardial effusion Status: Acute (2) Pulmonary nodule, left Status: Acute (3) Pleural effusion due to another disorder Status: Acute (4) Atelectasis Status: Acute Plan: Continue current medications F/U recommendations of the oncologest. Discussed with pulmonologest.
--- NOTE | 2017-01-11 22:18 | CP.PCM.PN ---
Subjective - Date & Time of Evaluation Date of Evaluation: 01/11/17 Time of Evaluation: 21:00 - Subjective Subjective: Chest CT scan revealed Large left and moderate Rt. pleural effusion Small pericardial effusion. Decrease in the size of the presumptive hematoma Underwent US guided Lt. thoracocentesis No SOB Confused Objective - Vital Signs/Intake and Output Vital Signs (last 24 hours): Temp Pulse Resp BP Pulse Ox 98.1 F 62 20 105/64 95 01/11/17 19:54 01/11/17 19:54 01/11/17 19:54 01/11/17 19:54 01/11/17 19:54 Intake and Output: 01/11/17 01/12/17 18:59 06:59 Intake Total 650 Balance 650 - Medications Medications: Current Medications Cephalexin Monohydrate (Keflex) 500 mg PO Q6 [facility] Last Admin: 01/11/17 21:27 Dose: 500 mg Clotrimazole (Lotrimin 1% Cream) 1 applic TOP BID [facility] Last Admin: 01/11/17 17:49 Dose: 1 applic Diltiazem HCl (Cardizem) 30 mg PO TID [facility] Last Admin: 01/11/17 17:49 Dose: 30 mg Enoxaparin Sodium (Lovenox) 30 mg SC DAILY [facility] PRN Reason: Protocol Last Admin: 01/10/17 08:21 Dose: 30 mg Fluconazole (Diflucan Iv 100 Mg/50 Ml Ns) 50 mls @ 50 mls/hr IVPB DAILY [facility] Last Admin: 01/11/17 14:33 Dose: 50 mls/hr Lactulose (Enulose) 20 gm PO DAILY PRN PRN Reason: Constipation Metoprolol Tartrate (Lopressor) 12.5 mg PO BID [facility] Last Admin: 01/11/17 17:49 Dose: 12.5 mg Quetiapine Fumarate (Seroquel) 25 mg PO HS [facility] Last Admin: 01/11/17 21:27 Dose: 25 mg - Labs Labs: 01/10/17 13:00 01/10/17 12:12 PT 12.2 Seconds (9.8-13.1) 01/08/17 06:25 INR 1.1 (0.9-1.2) 01/08/17 06:25 APTT 28.7 Seconds (25.6-37.1) 01/08/17 06:25 - Head Exam Head Exam: NORMAL INSPECTION - Eye Exam Eye Exam: Normal appearance - Respiratory Exam Respiratory Exam: Decreased Breath Sounds - Cardiovascular Exam Cardiovascular Exam: REGULAR RHYTHM - Extremities Exam Extremities Exam: Pedal Edema Assessment and Plan - Assessment and Plan (Free Text) Assessment: Paroxysmal A Fib Pericardial effusion s/p window for tamponade Bilateral pleural effusion Plan: Cont. Cephalexin Monohydrate (Keflex) 500 mg PO Q6 [facility] Last Admin: 01/11/17 21:27 Dose: 500 mg Clotrimazole (Lotrimin 1% Cream) 1 applic TOP BID [facility] Last Admin: 01/11/17 17:49 Dose: 1 applic Diltiazem HCl (Cardizem) 30 mg PO TID [facility] Last Admin: 01/11/17 17:49 Dose: 30 mg Fluconazole (Diflucan Iv 100 Mg/50 Ml Ns) 50 mls @ 50 mls/hr IVPB DAILY [facility] Last Admin: 01/11/17 14:33 Dose: 50 mls/hr Lactulose (Enulose) 20 gm PO DAILY PRN PRN Reason: Constipation Metoprolol Tartrate (Lopressor) 12.5 mg PO BID [facility] Last Admin: 01/11/17 17:49 Dose: 12.5 mg Quetiapine Fumarate (Seroquel) 25 mg PO HS [facility] Last Admin: 01/11/17 21:27 Dose: 25 mg Discontinue Lovenox
--- NOTE | 2017-01-12 02:59 | CP.PCM.CON ---
History of Present Illness - History of Present Illness History of Present Illness: 76 year old female with a history of tobacco abuse, pericardial tamponade secondary to pericardial effusion s/p pericardial window, pleural effusion s/p thoracentesis, lung nodule, with concern for occult malignancy. The patient is a poor historian but does have a significant smokign hisotry of 2ppd x 70 years. Analysis thus far on all effusions and bronchial brushings have been negative for malignancy. She reports she is more comfortable and denies shortness of breath or chest pain. Past medical, surgical, family, social history cannot be obtained from the patient as she reports she cannot remember. Allergies: Per documentation [facility] Review of systems cannot be obtained. Past Patient History - Past Medical History & Family History Past Medical History?: Yes Past Family History: Reviewed and not pertinent - Past Social History Smoking Status: Heavy Smoker > 10 Cigarettes Daily Home Situation {Lives}: Alone - CARDIAC Hx Hypercholesterolemia: Yes Hx Hypertension: Yes - PULMONARY Hx Pneumonia: Yes - NEUROLOGICAL Hx Neurological Disorder: No - HEENT Hx HEENT Problems: No - RENAL Hx Chronic Kidney Disease: No - ENDOCRINE/METABOLIC Hx Endocrine Disorders: No - HEMATOLOGICAL/ONCOLOGICAL Hx Blood Disorders: No Hx Blood Transfusions: No - INTEGUMENTARY Hx Dermatological Problems: No - MUSCULOSKELETAL/RHEUMATOLOGICAL Hx Musculoskeletal Disorders: No Hx Falls: No - GASTROINTESTINAL Hx Gastrointestinal Disorders: No - GENITOURINARY/GYNECOLOGICAL Hx Genitourinary Disorders: No - PSYCHIATRIC Hx Psychophysiologic Disorder: No Hx Substance Use: No - SURGICAL HISTORY Hx Surgeries: Yes Hx Cardiac Catheterization: Yes Other/Comment: pericardial window for ronaldo-cardial fluid drainage - ANESTHESIA Hx Anesthesia: Yes Hx Anesthesia Reactions: No Hx Malignant Hyperthermia: No Meds Allergies/Adverse Reactions: Allergies Allergy/AdvReac Type Severity Reaction Status Date / Time No Known Allergies Allergy Verified 12/27/16 18:13 - Medications Medications: Current Medications Cephalexin Monohydrate (Keflex) 500 mg PO Q6 [facility] Last Admin: 01/11/17 21:27 Dose: 500 mg Clotrimazole (Lotrimin 1% Cream) 1 applic TOP BID [facility] Last Admin: 01/11/17 17:49 Dose: 1 applic Diltiazem HCl (Cardizem) 30 mg PO TID [facility] Last Admin: 01/11/17 17:49 Dose: 30 mg Fluconazole (Diflucan Iv 100 Mg/50 Ml Ns) 50 mls @ 50 mls/hr IVPB DAILY [facility] Last Admin: 01/11/17 14:33 Dose: 50 mls/hr Lactulose (Enulose) 20 gm PO DAILY PRN PRN Reason: Constipation Metoprolol Tartrate (Lopressor) 12.5 mg PO BID [facility] Last Admin: 01/11/17 17:49 Dose: 12.5 mg Quetiapine Fumarate (Seroquel) 25 mg PO HS [facility] Last Admin: 01/11/17 21:27 Dose: 25 mg Physical Exam - Head Exam Head Exam: ATRAUMATIC - Eye Exam Eye Exam: Normal appearance - ENT Exam ENT Exam: Mucous Membranes Dry - Respiratory Exam Respiratory Exam: Decreased Breath Sounds - Cardiovascular Exam Cardiovascular Exam: +S1, +S2 - GI/Abdominal Exam GI & Abdominal Exam: Normal Bowel Sounds - Extremities Exam Extremities exam: Positive for: pedal edema - Psychiatric Exam Psychiatric exam: Normal Affect, Normal Mood - Skin Skin Exam: Warm Results - Vital Signs Recent Vital Signs: Last Vital Signs Temp 98.5 F 01/12/17 00:24 Pulse 72 01/12/17 00:24 Resp 18 01/12/17 00:24 BP 102/64 01/12/17 00:24 Pulse Ox 91 L 01/12/17 00:24 - Labs Result Diagrams: 01/10/17 13:00 01/10/17 12:12 Labs: Laboratory Results - last 24 hr 01/11/17 01/11/17 13:00 13:00 Fluid Source Pleural/thoracentesi Fluid Appearance Cloudy Fluid WBC 990.0 H Fluid RBC 88264.0 H Fluid Tot Cell Count 100 H Fluid Neutrophils 18.0 H Fluid Lymphocytes 80.0 H Fld Monocyte/Macrophag 2 H Fluid Glucose 96 Fluid Total Protein 3.5 Fluid LDH 553 Fluid Comment Light red/bloody Assessment & Plan (1) Pulmonary nodule, left Assessment and Plan: pericardial and pleural fluid analysis negative for malignancy occult malignancy still suspected case discussed with Dr. Watkins recommend outpatient PET CT scan for further evaluation. Area of most uptake would be the ideal spot for tissue sampling in the future Thank you for this interesting consult Status: Acute Priority: High (2) Hemorrhagic pericardial effusion Assessment and Plan: Status: Acute Priority: High (3) Pleural effusion due to another disorder Status: Acute Priority: High
[2017-01-12] MEDS: Fluconazole IV 100mg/50 ml NS 50 ML IVPB SCH (09:08)
--- NOTE | 2017-01-12 12:45 | CP.PCM.PN ---
Subjective - Date & Time of Evaluation Date of Evaluation: 01/12/17 Time of Evaluation: 12:42 - Subjective Subjective: No SOB Confused Objective - Vital Signs/Intake and Output Vital Signs (last 24 hours): Temp Pulse Resp BP Pulse Ox 98 F 65 18 110/73 97 01/12/17 12:00 01/12/17 12:00 01/12/17 12:00 01/12/17 12:00 01/12/17 12:00 - Medications Medications: Current Medications Cephalexin Monohydrate (Keflex) 500 mg PO Q6 [facility] Last Admin: 01/12/17 09:09 Dose: 500 mg Clotrimazole (Lotrimin 1% Cream) 1 applic TOP BID [facility] Last Admin: 01/12/17 09:10 Dose: 1 applic Diltiazem HCl (Cardizem) 30 mg PO TID [facility] Last Admin: 01/12/17 09:08 Dose: 30 mg Fluconazole (Diflucan Iv 100 Mg/50 Ml Ns) 50 mls @ 50 mls/hr IVPB DAILY [facility] Last Admin: 01/12/17 09:08 Dose: 50 mls/hr Lactulose (Enulose) 20 gm PO DAILY PRN PRN Reason: Constipation Metoprolol Tartrate (Lopressor) 12.5 mg PO BID [facility] Last Admin: 01/12/17 09:09 Dose: 12.5 mg Nystatin (Nystop Topical Powder) 1 applic TOP TID [facility] Quetiapine Fumarate (Seroquel) 25 mg PO HS [facility] Last Admin: 01/11/17 21:27 Dose: 25 mg - Labs Labs: 01/10/17 13:00 01/10/17 12:12 PT 12.2 Seconds (9.8-13.1) 01/08/17 06:25 INR 1.1 (0.9-1.2) 01/08/17 06:25 APTT 28.7 Seconds (25.6-37.1) 01/08/17 06:25 - Constitutional Appears: Confused - Head Exam Head Exam: NORMAL INSPECTION - Eye Exam Eye Exam: Normal appearance - Neck Exam Neck Exam: Normal Inspection - Respiratory Exam Respiratory Exam: Decreased Breath Sounds - Cardiovascular Exam Cardiovascular Exam: REGULAR RHYTHM Assessment and Plan - Assessment and Plan (Free Text) Assessment: Paroxysmal A Fib S/p thorcocentesis twice S/p pericardia window for tamponade AMS Plan: Cont. Cephalexin Monohydrate (Keflex) 500 mg PO Q6 [facility] Last Admin: 01/12/17 09:09 Dose: 500 mg Clotrimazole (Lotrimin 1% Cream) 1 applic TOP BID [facility] Last Admin: 01/12/17 09:10 Dose: 1 applic Diltiazem HCl (Cardizem) 30 mg PO TID [facility] Last Admin: 01/12/17 09:08 Dose: 30 mg Fluconazole (Diflucan Iv 100 Mg/50 Ml Ns) 50 mls @ 50 mls/hr IVPB DAILY [facility] Last Admin: 01/12/17 09:08 Dose: 50 mls/hr Lactulose (Enulose) 20 gm PO DAILY PRN PRN Reason: Constipation Metoprolol Tartrate (Lopressor) 12.5 mg PO BID [facility] Last Admin: 01/12/17 09:09 Dose: 12.5 mg Nystatin (Nystop Topical Powder) 1 applic TOP TID [facility] Quetiapine Fumarate (Seroquel) 25 mg PO HS [facility] Last Admin: 01/11/17 21:27 Dose: 25 mg Discussed with PMD and [facility] For Rehab and outpatient PET scan
--- NOTE | 2017-01-12 12:49 | CP.PCM.PN ---
Subjective - Date & Time of Evaluation Date of Evaluation: 01/12/17 Time of Evaluation: 12:00 - Subjective Subjective: No complaints. Objective - Vital Signs/Intake and Output Vital Signs (last 24 hours): Temp Pulse Resp BP Pulse Ox 98 F 65 18 110/73 97 01/12/17 12:00 01/12/17 12:46 01/12/17 12:46 01/12/17 12:46 01/12/17 12:46 - Medications Medications: Current Medications Cephalexin Monohydrate (Keflex) 500 mg PO Q6 [facility] Last Admin: 01/12/17 09:09 Dose: 500 mg Clotrimazole (Lotrimin 1% Cream) 1 applic TOP BID [facility] Last Admin: 01/12/17 09:10 Dose: 1 applic Diltiazem HCl (Cardizem) 30 mg PO TID [facility] Last Admin: 01/12/17 12:46 Dose: 30 mg Fluconazole (Diflucan Iv 100 Mg/50 Ml Ns) 50 mls @ 50 mls/hr IVPB DAILY [facility] Last Admin: 01/12/17 09:08 Dose: 50 mls/hr Lactulose (Enulose) 20 gm PO DAILY PRN PRN Reason: Constipation Metoprolol Tartrate (Lopressor) 12.5 mg PO BID [facility] Last Admin: 01/12/17 09:09 Dose: 12.5 mg Nystatin (Nystop Topical Powder) 1 applic TOP TID [facility] Last Admin: 01/12/17 12:47 Dose: 1 applic Quetiapine Fumarate (Seroquel) 25 mg PO HS [facility] Last Admin: 01/11/17 21:27 Dose: 25 mg - Labs Labs: 01/10/17 13:00 01/10/17 12:12 PT 12.2 Seconds (9.8-13.1) 01/08/17 06:25 INR 1.1 (0.9-1.2) 01/08/17 06:25 APTT 28.7 Seconds (25.6-37.1) 01/08/17 06:25 - Head Exam Head Exam: ATRAUMATIC - Eye Exam Eye Exam: Normal appearance - ENT Exam ENT Exam: Mucous Membranes Dry - Respiratory Exam Respiratory Exam: NORMAL BREATHING PATTERN - Cardiovascular Exam Cardiovascular Exam: +S1, +S2 - GI/Abdominal Exam GI & Abdominal Exam: Normal Bowel Sounds - Extremities Exam Extremities Exam: Normal Inspection Assessment and Plan (1) Pulmonary nodule, left Assessment & Plan: outpatient PET CT Status: Acute (2) Hemorrhagic pericardial effusion Status: Acute (3) Pleural effusion due to another disorder Status: Acute
[2017-01-13] MEDS: Fluconazole IV 100mg/50 ml NS 50 ML IVPB SCH (10:00)
--- NOTE | 2017-01-13 14:45 | CP.PCM.PN ---
Subjective - Date & Time of Evaluation Date of Evaluation: 01/13/17 Time of Evaluation: 14:43 - Subjective Subjective: Confused . no SOB NSR on moniter Objective - Vital Signs/Intake and Output Vital Signs (last 24 hours): Temp Pulse Resp BP Pulse Ox 97.6 F 62 18 107/65 98 01/13/17 12:00 01/13/17 12:36 01/13/17 12:36 01/13/17 12:36 01/13/17 12:36 - Medications Medications: Current Medications Cephalexin Monohydrate (Keflex) 500 mg PO Q6 [facility] Last Admin: 01/13/17 10:22 Dose: 500 mg Clotrimazole (Lotrimin 1% Cream) 1 applic TOP BID [facility] Last Admin: 01/13/17 10:00 Dose: 1 applic Diltiazem HCl (Cardizem) 30 mg PO TID [facility] Last Admin: 01/13/17 12:36 Dose: 30 mg Fluconazole (Diflucan Iv 100 Mg/50 Ml Ns) 50 mls @ 50 mls/hr IVPB DAILY [facility] Last Admin: 01/13/17 10:00 Dose: 50 mls/hr Lactulose (Enulose) 20 gm PO DAILY PRN PRN Reason: Constipation Metoprolol Tartrate (Lopressor) 12.5 mg PO BID [facility] Last Admin: 01/13/17 10:00 Dose: 12.5 mg Nystatin (Nystop Topical Powder) 1 applic TOP TID [facility] Last Admin: 01/13/17 12:37 Dose: 1 applic Quetiapine Fumarate (Seroquel) 25 mg PO HS [facility] Last Admin: 01/12/17 21:15 Dose: 25 mg - Labs Labs: 01/10/17 13:00 01/10/17 12:12 PT 12.2 Seconds (9.8-13.1) 01/08/17 06:25 INR 1.1 (0.9-1.2) 01/08/17 06:25 APTT 28.7 Seconds (25.6-37.1) 01/08/17 06:25 - Head Exam Head Exam: NORMOCEPHALIC - Eye Exam Eye Exam: Normal appearance - Neck Exam Neck Exam: Normal Inspection - Respiratory Exam Respiratory Exam: Decreased Breath Sounds - Cardiovascular Exam Cardiovascular Exam: REGULAR RHYTHM - GI/Abdominal Exam GI & Abdominal Exam: Soft - Extremities Exam Extremities Exam: Pedal Edema Assessment and Plan - Assessment and Plan (Free Text) Assessment: Parox.A Fib Bilteral Pleural Effusion S/P Pericardia window fot Tamponade Plan: cont. Cephalexin Monohydrate (Keflex) 500 mg PO Q6 [facility] Last Admin: 01/13/17 10:22 Dose: 500 mg Clotrimazole (Lotrimin 1% Cream) 1 applic TOP BID [facility] Last Admin: 01/13/17 10:00 Dose: 1 applic Diltiazem HCl (Cardizem) 30 mg PO TID [facility] Last Admin: 01/13/17 12:36 Dose: 30 mg Fluconazole (Diflucan Iv 100 Mg/50 Ml Ns) 50 mls @ 50 mls/hr IVPB DAILY [facility] Last Admin: 01/13/17 10:00 Dose: 50 mls/hr Lactulose (Enulose) 20 gm PO DAILY PRN PRN Reason: Constipation Metoprolol Tartrate (Lopressor) 12.5 mg PO BID [facility] Last Admin: 01/13/17 10:00 Dose: 12.5 mg Nystatin (Nystop Topical Powder) 1 applic TOP TID [facility] Last Admin: 01/13/17 12:37 Dose: 1 applic Quetiapine Fumarate (Seroquel) 25 mg PO HS [facility] Last Admin: 01/12/17 21:15 Dose: [address] Hopson yesterday
--- NOTE | 2017-01-14 03:05 | CP.PCM.PN ---
Subjective - Date & Time of Evaluation Date of Evaluation: 01/13/17 Time of Evaluation: 16:00 - Subjective Subjective: No complaints Objective - Vital Signs/Intake and Output Vital Signs (last 24 hours): Temp Pulse Resp BP Pulse Ox 97.6 F 87 18 126/72 94 L 01/13/17 23:59 01/13/17 23:59 01/13/17 23:59 01/13/17 23:59 01/13/17 23:59 Intake and Output: 01/13/17 01/14/17 18:59 06:59 Intake Total 960 Balance 960 - Medications Medications: Current Medications Cephalexin Monohydrate (Keflex) 500 mg PO Q6 [facility] Last Admin: 01/13/17 21:36 Dose: 500 mg Clotrimazole (Lotrimin 1% Cream) 1 applic TOP BID [facility] Last Admin: 01/13/17 16:23 Dose: 1 applic Diltiazem HCl (Cardizem) 30 mg PO TID [facility] Last Admin: 01/13/17 16:21 Dose: Not Given Fluconazole (Diflucan Iv 100 Mg/50 Ml Ns) 50 mls @ 50 mls/hr IVPB DAILY [facility] Last Admin: 01/13/17 10:00 Dose: 50 mls/hr Lactulose (Enulose) 20 gm PO DAILY PRN PRN Reason: Constipation Metoprolol Tartrate (Lopressor) 12.5 mg PO BID [facility] Last Admin: 01/13/17 16:23 Dose: Not Given Nystatin (Nystop Topical Powder) 1 applic TOP TID [facility] Last Admin: 01/13/17 16:24 Dose: 1 applic Quetiapine Fumarate (Seroquel) 25 mg PO HS [facility] Last Admin: 01/13/17 21:36 Dose: 25 mg - Labs Labs: 01/10/17 13:00 01/10/17 12:12 PT 12.2 Seconds (9.8-13.1) 01/08/17 06:25 INR 1.1 (0.9-1.2) 01/08/17 06:25 APTT 28.7 Seconds (25.6-37.1) 01/08/17 06:25 - Head Exam Head Exam: ATRAUMATIC - Eye Exam Eye Exam: Normal appearance - ENT Exam ENT Exam: Mucous Membranes Dry - Respiratory Exam Respiratory Exam: NORMAL BREATHING PATTERN - Cardiovascular Exam Cardiovascular Exam: +S1, +S2 - GI/Abdominal Exam GI & Abdominal Exam: Normal Bowel Sounds - Extremities Exam Extremities Exam: Normal Inspection Assessment and Plan (1) Pulmonary nodule, left Assessment & Plan: outpatient PET CT scan to evaluate for future tissue biopsy remains concern for occult malignancy Status: Acute (2) Hemorrhagic pericardial effusion Status: Acute (3) Pleural effusion due to another disorder Status: Acute
--- NOTE | 2017-01-14 08:14 | CP.PCM.PN ---
Subjective - Date & Time of Evaluation Date of Evaluation: 01/12/17 Time of Evaluation: 16:15 - Subjective Subjective: S/P thracentesis , PET scan was recommended by Hem/Onc. Objective - Vital Signs/Intake and Output Vital Signs (last 24 hours): Temp Pulse Resp BP Pulse Ox 97.7 F 83 18 113/77 93 L 01/14/17 05:03 01/14/17 05:03 01/14/17 05:03 01/14/17 05:03 01/14/17 05:03 - Medications Medications: Current Medications Cephalexin Monohydrate (Keflex) 500 mg PO Q6 [facility] Last Admin: 01/14/17 04:50 Dose: 500 mg Clotrimazole (Lotrimin 1% Cream) 1 applic TOP BID [facility] Last Admin: 01/13/17 16:23 Dose: 1 applic Diltiazem HCl (Cardizem) 30 mg PO TID [facility] Last Admin: 01/13/17 16:21 Dose: Not Given Fluconazole (Diflucan Iv 100 Mg/50 Ml Ns) 50 mls @ 50 mls/hr IVPB DAILY [facility] Last Admin: 01/13/17 10:00 Dose: 50 mls/hr Lactulose (Enulose) 20 gm PO DAILY PRN PRN Reason: Constipation Metoprolol Tartrate (Lopressor) 12.5 mg PO BID [facility] Last Admin: 01/13/17 16:23 Dose: Not Given Nystatin (Nystop Topical Powder) 1 applic TOP TID [facility] Last Admin: 01/13/17 16:24 Dose: 1 applic Quetiapine Fumarate (Seroquel) 25 mg PO HS [facility] Last Admin: 01/13/17 21:36 Dose: 25 mg - Labs Labs: 01/10/17 13:00 01/10/17 12:12 PT 12.2 Seconds (9.8-13.1) 01/08/17 06:25 INR 1.1 (0.9-1.2) 01/08/17 06:25 APTT 28.7 Seconds (25.6-37.1) 01/08/17 06:25 - Head Exam Head Exam: ATRAUMATIC, NORMOCEPHALIC - Eye Exam Eye Exam: Normal appearance, PERRL - ENT Exam ENT Exam: Mucous Membranes Moist - Neck Exam Neck Exam: Full ROM - Respiratory Exam Respiratory Exam: Clear to Ausculation Bilateral, NORMAL BREATHING PATTERN - Cardiovascular Exam Cardiovascular Exam: REGULAR RHYTHM - GI/Abdominal Exam GI & Abdominal Exam: Soft, Normal Bowel Sounds Assessment and Plan - Assessment and Plan (Free Text) Assessment: Assessment and Plan (1) Pulmonary nodule, left Assessment & Plan: outpatient PET CT scan to evaluate for future tissue biopsy remains concern for occult malignancy Status: Acute (2) Hemorrhagic pericardial effusion Status: Acute (3) Pleural effusion due to another disorder Status: Acute Plan: As above
--- NOTE | 2017-01-14 08:29 | CP.PCM.PN ---
Subjective - Date & Time of Evaluation Date of Evaluation: 01/13/17 Time of Evaluation: 16:30 - Subjective Subjective: Pt. denied sob , sitting comfertable Objective - Vital Signs/Intake and Output Vital Signs (last 24 hours): Temp Pulse Resp BP Pulse Ox 97.7 F 83 18 113/77 93 L 01/14/17 05:03 01/14/17 05:03 01/14/17 05:03 01/14/17 05:03 01/14/17 05:03 - Medications Medications: Current Medications Cephalexin Monohydrate (Keflex) 500 mg PO Q6 [facility] Last Admin: 01/14/17 04:50 Dose: 500 mg Clotrimazole (Lotrimin 1% Cream) 1 applic TOP BID [facility] Last Admin: 01/13/17 16:23 Dose: 1 applic Diltiazem HCl (Cardizem) 30 mg PO TID [facility] Last Admin: 01/13/17 16:21 Dose: Not Given Fluconazole (Diflucan Iv 100 Mg/50 Ml Ns) 50 mls @ 50 mls/hr IVPB DAILY [facility] Last Admin: 01/13/17 10:00 Dose: 50 mls/hr Lactulose (Enulose) 20 gm PO DAILY PRN PRN Reason: Constipation Metoprolol Tartrate (Lopressor) 12.5 mg PO BID [facility] Last Admin: 01/13/17 16:23 Dose: Not Given Nystatin (Nystop Topical Powder) 1 applic TOP TID [facility] Last Admin: 01/13/17 16:24 Dose: 1 applic Quetiapine Fumarate (Seroquel) 25 mg PO HS [facility] Last Admin: 01/13/17 21:36 Dose: 25 mg - Labs Labs: 01/10/17 13:00 01/10/17 12:12 PT 12.2 Seconds (9.8-13.1) 01/08/17 06:25 INR 1.1 (0.9-1.2) 01/08/17 06:25 APTT 28.7 Seconds (25.6-37.1) 01/08/17 06:25 - Head Exam Head Exam: ATRAUMATIC, NORMOCEPHALIC - Eye Exam Eye Exam: Normal appearance, PERRL - ENT Exam ENT Exam: Mucous Membranes Moist - Respiratory Exam Additional comments: Decreased breth sounds both lower lung [place]. - Cardiovascular Exam Cardiovascular Exam: REGULAR RHYTHM - GI/Abdominal Exam GI & Abdominal Exam: Soft, Normal Bowel Sounds Assessment and Plan - Assessment and Plan (Free Text) Assessment: (1) Hemorrhagic pericardial effusion Status: Acute (2) Pulmonary nodule, left Status: Acute (3) Pleural effusion due to another disorder Status: Acute (4) Atelectasis Status: Acute Plan: Continue current medications F/U recommendations of the oncologest. Discussed with pulmonologest. Plan: As above.
[2017-01-14] MEDS: Fluconazole IV 100mg/50 ml NS 50 ML IVPB SCH (08:57)
--- NOTE | 2017-01-14 15:55 | CP.PCM.PN ---
Subjective - Date & Time of Evaluation Date of Evaluation: 01/14/17 Time of Evaluation: 15:52 - Subjective Subjective: Confused No SOB or c/p Objective - Vital Signs/Intake and Output Vital Signs (last 24 hours): Temp Pulse Resp BP Pulse Ox 98.3 F 79 18 116/64 95 01/14/17 08:00 01/14/17 13:54 01/14/17 08:00 01/14/17 08:52 01/14/17 08:00 - Medications Medications: Current Medications Cephalexin Monohydrate (Keflex) 500 mg PO Q6 [facility] Last Admin: 01/14/17 09:01 Dose: 500 mg Clotrimazole (Lotrimin 1% Cream) 1 applic TOP BID [facility] Last Admin: 01/14/17 10:05 Dose: 1 applic Diltiazem HCl (Cardizem) 30 mg PO TID [facility] Last Admin: 01/14/17 13:54 Dose: 30 mg Fluconazole (Diflucan Iv 100 Mg/50 Ml Ns) 50 mls @ 50 mls/hr IVPB DAILY [facility] Last Admin: 01/14/17 08:57 Dose: 50 mls/hr Lactulose (Enulose) 20 gm PO DAILY PRN PRN Reason: Constipation Metoprolol Tartrate (Lopressor) 12.5 mg PO BID [facility] Last Admin: 01/14/17 08:52 Dose: 12.5 mg Nystatin (Nystop Topical Powder) 1 applic TOP TID [facility] Last Admin: 01/14/17 13:56 Dose: 1 applic Quetiapine Fumarate (Seroquel) 25 mg PO HS [facility] Last Admin: 01/13/17 21:36 Dose: 25 mg - Labs Labs: 01/10/17 13:00 01/10/17 12:12 PT 12.2 Seconds (9.8-13.1) 01/08/17 06:25 INR 1.1 (0.9-1.2) 01/08/17 06:25 APTT 28.7 Seconds (25.6-37.1) 01/08/17 06:25 - Constitutional Appears: Well - Head Exam Head Exam: NORMAL INSPECTION - Eye Exam Eye Exam: Normal appearance - Neck Exam Neck Exam: Normal Inspection - Respiratory Exam Respiratory Exam: Decreased Breath Sounds - Cardiovascular Exam Cardiovascular Exam: REGULAR RHYTHM - GI/Abdominal Exam GI & Abdominal Exam: Soft - Extremities Exam Extremities Exam: Pedal Edema Assessment and Plan - Assessment and Plan (Free Text) Assessment: Assessment: Parox.A Fib Bilteral Pleural Effusion S/P Pericardia window fot Tamponade Lung nodule Plan: Plan: cont. Cephalexin Monohydrate (Keflex) 500 mg PO Q6 [facility] Diltiazem HCl (Cardizem) 30 mg PO TID [facility] Fluconazole (Diflucan Iv 100 Mg/50 Ml Ns) 50 mls @ 50 mls/hr IVPB DAILY [facility] Lactulose (Enulose) 20 gm PO DAILY PRN Metoprolol Tartrate (Lopressor) 12.5 mg PO BID [facility] Nystatin (Nystop Topical Powder) 1 applic TOP TID [facility] Quetiapine Fumarate (Seroquel) 25 mg PO HS [facility] For outpatient PET scan
--- NOTE | 2017-01-15 00:41 | CP.PCM.PN ---
Subjective - Date & Time of Evaluation Date of Evaluation: 01/14/17 Time of Evaluation: 16:00 - Subjective Subjective: No complaints. Objective - Vital Signs/Intake and Output Vital Signs (last 24 hours): Temp Pulse Resp BP Pulse Ox 97.7 F 70 18 111/71 96 01/15/17 00:33 01/15/17 00:33 01/15/17 00:33 01/15/17 00:33 01/15/17 00:33 - Medications Medications: Current Medications Cephalexin Monohydrate (Keflex) 500 mg PO Q6 [facility] Last Admin: 01/14/17 21:19 Dose: 500 mg Clotrimazole (Lotrimin 1% Cream) 1 applic TOP BID [facility] Last Admin: 01/14/17 16:04 Dose: 1 applic Diltiazem HCl (Cardizem) 30 mg PO TID [facility] Last Admin: 01/14/17 16:04 Dose: 30 mg Fluconazole (Diflucan Iv 100 Mg/50 Ml Ns) 50 mls @ 50 mls/hr IVPB DAILY [facility] Last Admin: 01/14/17 08:57 Dose: 50 mls/hr Lactulose (Enulose) 20 gm PO DAILY PRN PRN Reason: Constipation Metoprolol Tartrate (Lopressor) 12.5 mg PO BID [facility] Last Admin: 01/14/17 16:05 Dose: 12.5 mg Nystatin (Nystop Topical Powder) 1 applic TOP TID [facility] Last Admin: 01/14/17 16:04 Dose: 1 applic Quetiapine Fumarate (Seroquel) 25 mg PO HS [facility] Last Admin: 01/14/17 21:19 Dose: 25 mg - Labs Labs: 01/10/17 13:00 01/10/17 12:12 PT 12.2 Seconds (9.8-13.1) 01/08/17 06:25 INR 1.1 (0.9-1.2) 01/08/17 06:25 APTT 28.7 Seconds (25.6-37.1) 01/08/17 06:25 - Head Exam Head Exam: ATRAUMATIC - ENT Exam ENT Exam: Mucous Membranes Dry - Respiratory Exam Respiratory Exam: Decreased Breath Sounds - Cardiovascular Exam Cardiovascular Exam: +S1, +S2 - GI/Abdominal Exam GI & Abdominal Exam: Normal Bowel Sounds - Extremities Exam Extremities Exam: Normal Inspection Assessment and Plan (1) Pulmonary nodule, left Assessment & Plan: outpatient PET CT scan concern for occult malignancy despite negative cytology Status: Acute (2) Hemorrhagic pericardial effusion Status: Acute (3) Pleural effusion due to another disorder Status: Acute
[2017-01-15] MEDS: Fluconazole IV 100mg/50 ml NS 50 ML IVPB SCH (10:02)
--- NOTE | 2017-01-15 13:09 | CP.PCM.PN ---
Subjective - Date & Time of Evaluation Date of Evaluation: 01/15/17 Time of Evaluation: 13:07 - Subjective Subjective: confused no Apparent distress Objective - Vital Signs/Intake and Output Vital Signs (last 24 hours): Temp Pulse Resp BP Pulse Ox 97.5 F L 81 16 124/74 96 01/15/17 08:34 01/15/17 10:03 01/15/17 10:02 01/15/17 10:03 01/15/17 10:02 - Medications Medications: Current Medications Cephalexin Monohydrate (Keflex) 500 mg PO Q6 [facility] Last Admin: 01/15/17 10:03 Dose: 500 mg Clotrimazole (Lotrimin 1% Cream) 1 applic TOP BID [facility] Last Admin: 01/15/17 10:04 Dose: 1 applic Diltiazem HCl (Cardizem) 30 mg PO TID [facility] Last Admin: 01/15/17 10:02 Dose: 30 mg Fluconazole (Diflucan Iv 100 Mg/50 Ml Ns) 50 mls @ 50 mls/hr IVPB DAILY [facility] Last Admin: 01/15/17 10:02 Dose: 50 mls/hr Lactulose (Enulose) 20 gm PO DAILY PRN PRN Reason: Constipation Metoprolol Tartrate (Lopressor) 12.5 mg PO BID [facility] Last Admin: 01/15/17 10:03 Dose: 12.5 mg Nystatin (Nystop Topical Powder) 1 applic TOP TID [facility] Last Admin: 01/15/17 10:04 Dose: 1 applic Quetiapine Fumarate (Seroquel) 25 mg PO HS [facility] Last Admin: 01/14/17 21:19 Dose: 25 mg - Labs Labs: 01/10/17 13:00 01/10/17 12:12 PT 12.2 Seconds (9.8-13.1) 01/08/17 06:25 INR 1.1 (0.9-1.2) 01/08/17 06:25 APTT 28.7 Seconds (25.6-37.1) 01/08/17 06:25 - Constitutional Appears: Non-toxic - Head Exam Head Exam: NORMAL INSPECTION - Eye Exam Eye Exam: Normal appearance - Neck Exam Neck Exam: Normal Inspection - Respiratory Exam Respiratory Exam: Decreased Breath Sounds - Cardiovascular Exam Cardiovascular Exam: REGULAR RHYTHM - Extremities Exam Extremities Exam: Pedal Edema Assessment and Plan - Assessment and Plan (Free Text) Assessment: Parox.A Fib Bilteral Pleural Effusion S/P Pericardia window fot Tamponade Lung nodule Plan: cont. Lactulose (Enulose) 20 gm PO DAILY PRN Metoprolol Tartrate (Lopressor) 12.5 mg PO BID [facility] Nystatin (Nystop Topical Powder) 1 applic TOP TID [facility] Quetiapine Fumarate (Seroquel) 25 mg PO HS [facility] Cephalexin Monohydrate (Keflex) 500 mg PO Q6 [facility] Diltiazem HCl (Cardizem) 30 mg PO TID [facility] Fluconazole (Diflucan Iv 100 Mg/50 Ml Ns) 50 mls @ 50 mls/hr IVPB DAILY [facility] For outpatient PET scan
--- NOTE | 2017-01-15 14:58 | RAD ---
HISTORY: shortness of breath COMPARISON: 01/11/2017 TECHNIQUE: Chest PA and lateral FINDINGS: LUNGS: The the lungs are well inflated. There is bibasilar atelectasis. PLEURA: There is no significant interval change in small pleural effusions. CARDIOVASCULAR: There is persistent mild cardiomegaly. Atherosclerotic aortic arch calcifications are present. OSSEOUS STRUCTURES: Within normal limits for the patient's age. VISUALIZED UPPER ABDOMEN: Normal. OTHER FINDINGS: None. IMPRESSION: No significant interval change in small pleural effusions. Interval development of fluid and minor fissure.
--- NOTE | 2017-01-15 22:06 | CP.PCM.PN ---
Subjective - Date & Time of Evaluation Date of Evaluation: 01/15/17 Time of Evaluation: 10:15 - Subjective Subjective: No cardiopulmonary distress. , Objective - Vital Signs/Intake and Output Vital Signs (last 24 hours): Temp Pulse Resp BP Pulse Ox 98.2 F 72 18 112/65 93 L 01/15/17 18:47 01/15/17 20:37 01/15/17 18:47 01/15/17 18:47 01/15/17 18:47 - Medications Medications: Current Medications Clotrimazole (Lotrimin 1% Cream) 1 applic TOP BID [facility] Last Admin: 01/15/17 18:19 Dose: 1 applic Diltiazem HCl (Cardizem) 30 mg PO TID [facility] Last Admin: 01/15/17 18:18 Dose: 30 mg Fluconazole (Diflucan Iv 100 Mg/50 Ml Ns) 50 mls @ 50 mls/hr IVPB DAILY [facility] Last Admin: 01/15/17 10:02 Dose: 50 mls/hr Lactulose (Enulose) 20 gm PO DAILY PRN PRN Reason: Constipation Metoprolol Tartrate (Lopressor) 12.5 mg PO BID [facility] Last Admin: 01/15/17 18:18 Dose: 12.5 mg Nystatin (Nystop Topical Powder) 1 applic TOP TID [facility] Last Admin: 01/15/17 18:19 Dose: 1 applic Quetiapine Fumarate (Seroquel) 25 mg PO HS [facility] Last Admin: 01/15/17 21:43 Dose: 25 mg - Labs Labs: 01/10/17 13:00 01/10/17 12:12 PT 12.2 Seconds (9.8-13.1) 01/08/17 06:25 INR 1.1 (0.9-1.2) 01/08/17 06:25 APTT 28.7 Seconds (25.6-37.1) 01/08/17 06:25 - Head Exam Head Exam: ATRAUMATIC, NORMOCEPHALIC - Eye Exam Eye Exam: EOMI, PERRL - ENT Exam ENT Exam: Mucous Membranes Moist, Normal Exam Assessment and Plan - Assessment and Plan (Free Text) Assessment: Assessment: Parox.A Fib Bilteral Pleural Effusion S/P Pericardia window fot Tamponade Lung nodule Plan: Repeat CXR Continue current treatment. Anticoagulant is stopped by cardiology due to bloody pleural effusion.
[2017-01-16] MEDS: Fluconazole IV 100mg/50 ml NS 50 ML IVPB SCH (09:00)
[2017-01-16] MEDS ORDERED: methylPREDNISolone 125 MG in Sodium Chloride 0.9% 50 ML IVPB ONE (13:26)
[2017-01-16 15:35] VITALS: BP 109/68; PULSE 73; RESP 20; TEMP 97.6; O2SAT 94
== END 2017-01-16 16:40 | DRG 206 ==
LOC: H.ER 17:34 → H.ERHOLD 20:18 → H.TEL 21:28
PROVIDERS: ADMIT Internal Medicine; ATTEND Internal Medicine
PROC: 0W993ZZ Drainage of Right Pleural Cavity, Percutaneous Approach (ICD-10-PCS; principal; 2017-01-04)
PROC: 0BB78ZX Excision of Left Main Bronchus, Via Natural or Artificial Opening Endoscopic, Diagnostic (ICD-10-PCS; 2017-01-08)
PROC: 0W993ZZ Drainage of Right Pleural Cavity, Percutaneous Approach (ICD-10-PCS; 2017-01-11)
DX: J95.89 Other postprocedural complications and disorders of respiratory system, not elsewhere classified (principal); I31.4 Cardiac tamponade; I48.0 Paroxysmal atrial fibrillation; I30.8 Other forms of acute pericarditis; J90 Pleural effusion, not elsewhere classified; F03.90 Unspecified dementia, unspecified severity, without behavioral disturbance, psychotic disturbance, mood disturbance, and anxiety; B35.8 Other dermatophytoses; I10 Essential (primary) hypertension; J98.11 Atelectasis; J44.9 Chronic obstructive pulmonary disease, unspecified; F17.210 Nicotine dependence, cigarettes, uncomplicated; D17.1 Benign lipomatous neoplasm of skin and subcutaneous tissue of trunk; E78.5 Hyperlipidemia, unspecified; E78.00 Pure hypercholesterolemia, unspecified; I25.10 Atherosclerotic heart disease of native coronary artery without angina pectoris; R29.6 Repeated falls; R91.1 Solitary pulmonary nodule; Y83.8 Other surgical procedures as the cause of abnormal reaction of the patient, or of later complication, without mention of misadventure at the time of the procedure; Y92.9 Unspecified place or not applicable